=== PATIENT | male | born 1990 | race Caucasian/White ===

== ENCOUNTER 2018-04-30 18:45 | Inpatient (IN) | payer OTHER ==
[2018-04-30] MEDS ORDERED: Nicotine Inhaler* 10 MG AMP INH PRN (19:41)
[2018-04-30] MEDS ORDERED: Mouth Piece, Nicotine* 1 EACH CARTRIDGE INH PRN (20:05)
--- NOTE | 2018-04-30 20:31 | ED ---
Psychiatric Complaint - HPI Summary HPI Summary: This patient is a 27 year old M presenting to [facility] accompanied by a his mother and a male with a chief complaint of worsening paranoia and anxiety since 2 days ago. The patient was difficult to bring into his room in the ED and is resistant to any testing. Patient reports lack of motivation, fear of his own thoughts, and feelings of being ripped apart to . Patient denies SI, HI, hearing voices, or abd pain. The patients mother states that he doesnt follow conversation and often zones out. She also believes something auditory may be happening. She does not believe it is safe for him to go home, where he lives alone. 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 He was weaned off of this medication after 3 months. At the time, he believed he was a robot. Currently, he has asked his parents several times to prove that they are human and not a simulation. The patients mother says that he is usually very high functioning and this behavior is not normal. The patient will not say if he takes drugs. PMHX Crohn s. SHX unemployed, EtOH use, lives alone. RX Remicade. 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 - Risk Factor(s) Completed Suicide Risk Factors: Male, White Belarusian, Living Alone - Allergies/Home Medications Allergies/Adverse Reactions: Allergies Allergy/AdvReac Type Severity Reaction Status Date / Time pollen extracts Allergy Congestion Verified 05/01/18 04:02 shrimp Allergy Hives Verified 05/01/18 15:45 Home Medications: Home Medications Clotrimazole/Betamethasone* [Lotrisone Cream*] 1 dose .SEE ORDER DAILY 04/30/18 [History Confirmed 04/30/18] PMH/Surg Hx/FS Hx/Imm Hx GI History: Reports: Hx Crohn's Disease Musculoskeletal History: Denies: Hx Rheumatoid Arthritis, Hx Osteoporosis Infectious Disease History: No Infectious Disease History: Denies: Traveled Outside the [place] in Last 30 Days - Family History Known Family History: Positive: Other - crohns - Social History Occupation: Unemployed Lives: Alone Alcohol Use: Occasionally Alcohol Amount: unknown Review of Systems Negative: Abdominal Pain Neurological: Other - confusion Psychological: Other - paranoid, fearful, lack of motivation Positive: Anxious. Negative: Other - SI/HI, hearing voices All Other Systems Reviewed And Are Negative: Yes Physical Exam - Summary Physical Exam Summary: Appearance: Well appearing, no pain distress. Anxious. Skin: warm, dry, reflects adequate perfusion Head/face: normal Eyes: EOMI, GONZALO ENT: normal Neck: supple, non-tender Respiratory: CTA, breath sounds present Cardiovascular: RRR, pulses symmetrical Abdomen: non-tender, soft Musculoskeletal: normal, strength/ROM intact Neuro: normal, sensory motor intact, A&Ox3 GCS: 15 Triage Information Reviewed: Yes Vital Signs On Initial Exam: Initial Vitals Temp Pulse Resp BP Pulse Ox 99.4 F 70 18 0/0 99 04/30/18 18:51 04/30/18 18:51 04/30/18 18:51 04/30/18 18:51 04/30/18 18:51 Vital Signs Reviewed: Yes Diagnostics - Vital Signs Vital Signs Temp Pulse Resp BP Pulse Ox 04/30/18 18:51 99.4 F 70 18 0/0 99 - Laboratory Result Diagrams: 05/04/18 10:06 05/04/18 10:06 Lab Statement: Any lab studies that have been ordered have been reviewed, and results considered in the medical decision making process. Course/Dx - Course Course Of Treatment: This patient is a 27 year old M presenting to [facility] accompanied by a his mother and a male with a chief complaint of worsening paranoia and anxiety since 2 days ago. The patient was difficult to bring into his room in the ED and is resistant to any testing. Patient reports lack of motivation, fear of his own thoughts, and feelings of being ripped apart to . Patient denies SI, HI, hearing voices, or abd pain. In the ED course the patient was given Nicotine Inhaler. The patient will be signed out by Dr. Cowan to Dr. Darden, awaiting lab results, CT brain results, and mental health evaluation. - Differential Dx/Clinical Impression Differential Diagnosis/HQI/PQRI: Positive: Acute Psychosis, Anxiety, Depression Provider Diagnosis: Psychosis Discharge - Sign-Out/Discharge Documenting (check all that apply): Sign-Out Patient Signing out patient TO: Ted Darden Patient Received Moderate/Deep Sedation with Procedure: Yes - Discharge Plan Condition: Good Disposition: PSYCHIATRIC FACILITY-[facility] [place] - Billing Disposition and Condition Condition: GOOD Disposition: Psychiatric Facility [facility] - Attestation Statements Document Initiated by Scribe: Yes Documenting Scribe: Pedro Will Provider For Whom Scribe is Documenting (Include Credential): Oren Cowan MD Scribe Attestation: Pedro Granda, scribed for Oren Cowan MD on 05/06/18 at 0208. Scribe Documentation Reviewed: Yes Provider Attestation: The documentation as recorded by the Pedro hsieh accurately reflects the service I personally performed and the decisions made by Oren gayle MD Status of Scribe Document: Viewed
[2018-04-30 21:53] LABS: ABS Basophils 0 10^3/ul (0-0.2); ABS Eosinophils 0.1 10^3/ul (0-0.6); ABS Monocytes 0.7 10^3/ul (0-0.8); ABS Nucleated RBC 0 10^3/ul; Eosinophil % 0.9 %; Hematocrit 44 % (42-52); Hemoglobin 14.9 g/dl (14.0-18.0); Lymphocyte % 14.4 %; Mean Corpuscular HGB Conc 34 g/dl (31-36); Mean Corpuscular Hemoglobin 31 pg (27-31); Mean Corpuscular Volume 91 fL (80-94); Mean Platelet Volume 6.6 fL (7.4-10.4); Nucleated Red Blood Cells % 0; Platelet Count 285 10^3/ul (150-450); Red Blood Count 4.82 10^6/ul (4.00-5.40); Red Cell Distribution Width 12 % (10.5-15); White Blood Count 6.7 10^3/ul (3.5-10.8)
--- NOTE | 2018-04-30 21:55 | ED ---
Progress - Progress Note Progress Note: Receiving sign out from Dr. Cowan, pending brain CT, labs, and MHE. Brain CT was cancelled because the pt is too agitated and declines. 0103 - worker states that he spoke to Dr. Gonzalez and relays that Dr. Gonzalez would like a Brain CT, urine tox screen before MHE. MH worker will discuss necessity of Brain CT prior to MHE. 0109 - worker states that patient is agreeable with Brain CT, urine obtained. BRAIN IMPRESSION: Normal noncontrast head CT. THIS REPORT WAS REVIEWED BY ED PHYSICIAN. 0218 - Dr. Gonzalez reviewed the patient's case, patient is admitted to [facility] with Dx of psychosis. Re-Evaluation - Re-Evaluation First Eval Re-Evaluation Time: 23:00 Change: Unchanged Comment: Pt is medically cleared for a MHE. Second Eval Re-Evaluation Time: 01:03 Change: Unchanged Comment: 0103 - worker states that he spoke to Dr. Gonzalez and relays that Dr. Gonzalez would like a Brain CT, urine tox screen before MHE. MH worker will discuss necessity of Brain CT prior to MHE. Third Eval Re-Evaluation Time: 01:09 Change: Unchanged Comment: 0109 - worker states that patient is agreeable with Brain CT, urine obtained. Course/Dx - Course Course Of Treatment: Nurse's notes reviewed. I assumed care from the outgoing ER physician on this case. Patient was calm and cooperative on my initial evaluation after getting sedation earlier. Head CT was performed and was negative. Mental health evaluation was performed and following this the psychiatrist wish to have the patient admitted. He was done so on involuntary status for acute psychosis. - Diagnoses Provider Diagnoses: Psychosis - Provider Notifications Discussed Care Of Patient With: Avila Gonzalez Time Discussed With Above Provider: 02:18 Instructed by Provider To: Other - 0218 - Dr. Gonzalez reviewed the patient's case , patient is admitted to [facility] with Dx of psychosis. Discharge - Sign-Out/Discharge Documenting (check all that apply): Patient Departure - admit, Receiving Sign- Out Receiving patient FROM: Oren Cowan - Discharge Plan Condition: Good Disposition: [place]CHIATRIC FACILITY[place] [place] - Billing Disposition and Condition Condition: GOOD Disposition: Psychiatric Facility [facility] [place] - Attestation Statements Document Initiated by Scribe: Yes Documenting Scribe: Aurelia Paul Provider For Whom Scribe is Documenting (Include Credential): Ted Darden MD Scribe Attestation: Aurelia Granda, scribed for Ted Darden MD on 05/01/18 at 0518. Scribe Documentation Reviewed: Yes Provider Attestation: The documentation as recorded by the scribe, Aurelia Paul accurately reflects the service I personally performed and the decisions made by , Ted Darden MD Status of Scribe Document: Viewed
[2018-04-30 22:16] LABS: ALT 31 U/L (7-52); AST 29 U/L (13-39); Albumin/Globulin Ratio 1.9 (1-3); Alkaline Phosphatase 69 U/L (34-104); Anion Gap 6 mmol/L (2-11); BUN/Creatinine Ratio 13.1 (8-20); Blood Urea Nitrogen 14 mg/dL (6-24); CO2 Carbon Dioxide 26 mmol/L (22-32); Calcium 9.9 mg/dL (8.6-10.3); Chloride 105 mmol/L (101-111); EGFR African American 101.9 (>60); EGFR Non-African American 84.2 (>60); Globulin 2.7 g/dL (2-4); Glucose 126 mg/dL (70-100); Potassium 3.7 mmol/L (3.5-5.0); Sodium 137 mmol/L (135-145); Total Protein 7.7 g/dL (6.4-8.9)
[2018-04-30 22:34] LABS: Acetaminophen < 15 mcg/mL; Alcohol < 10 mg/dL (<10); Salicylate < 2.50 mg/dL (<30)
[2018-04-30 22:48] LABS: TSH (Thyroid Stimulating Horm) 1.62 mcIU/mL (0.34-5.60)
[2018-05-01] MEDS ORDERED: LORazepam TAB(*) 1 MG PO ONE ×2 (01:03→16:00)
[2018-05-01 01:23] LABS: Urine Appearance Clear; Urine Bilirubin Negative (Negative); Urine Blood Negative (Negative); Urine Color Yellow; Urine Glucose Negative (Negative); Urine Ketones 1+ (Negative); Urine Nitrite Negative (Negative); Urine Protein Negative (Negative); Urine Urobilinogen Negative (Negative)
[2018-05-01 01:36] LABS: Barbiturates Urine Screen None Detected (None Detect); Benzodiazepine Urine Screen None Detected (None Detect); Urine Cannabinoids Screen None Detected (None Detect)
[2018-05-01] MEDS ORDERED: Al Hydrox/Mg Hydrox/Simet LIQ* 30 ML UDC PO PRN (04:25)
[2018-05-01] MEDS ORDERED: OLANzapine TAB*ODT* 10 MG TAB PO ONE (07:43)
[2018-05-01] MEDS ORDERED: Olanzapine INJ(NF) 10 MG VIAL IM ONE (07:45)
[2018-05-01] MEDS: Vitamin THERAPEUTIC TAB PO SCH (13:05)
[2018-05-01] MEDS ORDERED: OLANzapine TAB*ODT* 5 MG ONE (13:23)
[2018-05-01] MEDS ORDERED: OLANzapine TAB*ODT* 5 MG PO SCH (13:30)
--- NOTE | 2018-05-01 15:17 | PN ---
Hospitalist Progress Note Date of Service: 05/01/18 please see restraint note
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
--- NOTE | 2018-05-01 18:30 | HP ---
HISTORY AND PHYSICAL: DATE OF ADMISSION: 05/01/18 IDENTIFYING DATA: Ishaan is an unemployed, single male with lifetime history of 1 prior psychiatric hospitalization in 2016 at [facility] in [place] who was brought into the emergency department by his parents because of abrupt change in his mental status during last few weeks' time. CHIEF COMPLAINT: "I feel like a black hole and people are being sucked into it. " HISTORY OF PRESENT ILLNESS: This young man who has been doing fine up until few weeks ago without any medication started to experience some psychosis manifested as seeing people around him as abnormal, even seeing his mother as a robot. Last evening, he presented to the emergency room complaining of few weeks of having strange thoughts such as people as beams of light from the stars and then himself being as black hole and those people are being sucked into that and he saw people at the bottom of that black hole as well, and his story of strange thoughts continues as the bizarre delusion of seeing his mother as a robot and not a real one. He also has been experiencing some spiritual things such as seeing the light from the heavens. He denies hearing any voices or well-formed visual hallucinations, however, believes that people around him including patients on the unit are weird and abnormal. He thinks their brains are computerized and those computers in their brains are bugged. He is also stressed with the current political environment in the country, where he believes the politicians are all corrupt. There is some reporting by the staff on the unit as well as his mother's detailed history that he was misunderstood during his college years as being a Nazi. Please read detailed history written by his mother for more information. With regards to his stress, there are plenty; few of them are as follows: His isolation from the community because of his extreme political views which are considered to be white supremacist views, lack of other support systems, unemployment, financial problem, and so on. PAST PSYCHIATRIC HISTORY: According to collaterals, Ishaan was hospitalized at [facility] in [place] for 10 days almost under the similar circumstances. He was stabilized on 5 mg of Zyprexa as well as 40 mg of Prozac , which he successfully discontinued with the help of his community providers. He did fairly well for some time and then started experiencing bizarre thoughts and was isolating himself. According to his mother's history, he was weaned off Zyprexa within few months of his discharge from [facility]; however, he stayed on Prozac until the summer of 2016 and was weaned off that as well. SUBSTANCE ABUSE HISTORY: Unremarkable. PAST MEDICAL HISTORY: Remarkable for a diagnosis of Crohn disease for which he takes Remicade IV every 8 weeks. MEDICATIONS: He currently takes some supplements which include: 1. Vitamin D. 2. Magnesium gluconate. 3. B12. 4. Oceans 3. 5. Alger-3s. 6. Curcumin 500 mg 1 tablet. 7. B complex. 8. Zinc gluconate. Please refer to his mother's history for his medical history as well. FAMILY PSYCHIATRIC HISTORY: Remarkable for paternal mother and his own mother suffering from anxiety. FAMILY MEDICAL HISTORY: Remarkable for hypertension in maternal grandmother and mother; multiple myeloma, paternal grandfather who is ; and hypercholesterolemia in his father. PERSONAL AND SOCIAL HISTORY: Ishaan has obtained a bachelor's in chemistry and pursued into his graduate education in chemistry in [employer]; however, because of his strong political views and being branded as a Nazi there , he left without finishing his master's. 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 He was discharged from that job for unknown reason, possibly because of disagreement with a cardiology clinical consultant there. He is currently unemployed and is being interviewed at [employer] for job as a industrial chemistry teacher. He does not have any significant relationship or any children. PHYSICAL EXAMINATION Physical exam was offered and he politely declined; however, he does not appear to be in any acute physical distress. DIAGNOSTIC STUDIES/LAB DATA: Review of records from emergency department were all unremarkable including labs, which included CBC with differential, comprehensive metabolic profile, urinalysis, and urine drug screen, all were within normal limits. A CT scan done in the emergency room to rule out any neurological condition was also negative. However, his mother provided some research article indicative of some kind of demyelination or neuroinflammation related to Remicade, please review it if you have time. MENTAL STATUS EXAMINATION: Ishaan is average height, thin-framed, healthy- appearing young male, appropriately dressed, poorly groomed with fair personal hygiene. He has facial hair which is trimmed. Otherwise, normal appearing young man of his stated age. He is alert and oriented to time, place, and person, makes good eye contact. Speech is normal in all spheres. He is a little suspicious and has intense stare. Describes his mood as terrible because he is locked up. Denies experiencing any hallucinations or delusions, although history is suggestive of bizarre and paranoid delusions. He denies any suicidal or homicidal ideations. His intelligence appears to be average as evidenced by his vocabulary, fund of knowledge, educational background, and so on. Memory functions are intact in all spheres. Insight and judgment impaired. SUMMARY: This young man with 1 prior psychiatric hospitalization for acute onset psychosis and depression who weaned himself off the medications on which he was stabilized approximately couple of years ago started experiencing acute psychosis with bizarre delusions and extraterrestrial experiences. DIAGNOSTIC IMPRESSION: MENTAL HEALTH DIAGNOSIS: Schizophrenia, unspecified type, rule out disorganized schizophrenia, rule out schizoaffective disorder. PHYSICAL HEALTH DIAGNOSIS: Crohn disease. TREATMENT RECOMMENDATIONS: Ishaan will remain hospitalized on [facility] for his safety , diagnostic clarification as well as stabilization of acute psychosis. His code status will remain full. Supportive milieu, individual, and group therapy will be initiated. I have started him on Zyprexa 5 mg once a day which can be titrated up as he tolerates and I will defer that to his assigned psychiatrist on the unit, and again his treatment needs to be coordinated with his mother who is a retired physician and has written a very good medical and mental health history on him. Please refer to that piece of document. Ishaan has his own place to go back to and has a very supportive, loving, and caring parents. He has good educational background, has been employed, and has a potential to be gainfully employed in the community if he maintains his stability by being compliant with his appointments and treatments. [id number]/CPS #: [id number] MIKE
[2018-05-02] MEDS ORDERED: OLANzapine TAB*ODT* 10 MG TAB PO SCH ×2 (04:41→09:00)
[2018-05-02] MEDS ORDERED: Olanzapine INJ(NF) 10 MG VIAL IM ONE (08:00)
[2018-05-02] MEDS ORDERED: LORazepam INJ* 2 MG/ML 1 ML VIAL ONE (08:14)
[2018-05-02] MEDS ORDERED: chlorproMAZINE INJ* 25 MG/ML 2 ML (50 MG) ONE ×2 (08:17→10:21)
--- NOTE | 2018-05-02 08:47 | PROCNOTE ---
- Assessment for Patient Restraint Evaluation of the Patient's Immediate Situation: Analytical Lab Technician was notified of chemical restraints at 805am and manual hold and was seen and evaluated within a half hour of being notified. Patient was seen by this speech writer at 830am for an evaluation. He was given Zyprexa 10mg IM and Thorazine 25mg IM. Patient was offered oral zyprexa before conditions prompted emergency administration of intramuscular zyprexa 10mg. The patient continued to be combative toward staff which included biting and kicking requiring the use of security to maintain safety of others and the patient. Thorazine 25mg IM was given and the patient was able to calm down. Patient's Reaction to Intervention: The patient is not in any acute distress and is currently stable sitting on his bed. The patient is breathing freely without restriction. The patient displayed no signs of injury. Patient's Medication and Behavioral Condition: Zyprexa 10mg IM and Thorazine 25mg IM was given. The patient received intramuscular medication without complication. Evaluate Need for Continued Restraint: Terminate
[2018-05-02] MEDS ORDERED: chlorproMAZINE INJ* 25 MG/ML 2 ML (50 MG) IM ONE ×2 (09:00→10:20)
[2018-05-02] MEDS ORDERED: LORazepam INJ* 2 MG/ML 1 ML VIAL IM ONE (09:00)
[2018-05-02] MEDS: Vitamin THERAPEUTIC TAB PO SCH (09:27)
--- NOTE | 2018-05-02 11:52 | PROCNOTE ---
- Assessment for Patient Restraint Evaluation of the Patient's Immediate Situation: Paragliding Instructor was notified of chemical restraints and manual hold at 1030am and was seen and evaluated within a half hour of being notified. Patient was seen by this television script writer at 1045am for an evaluation. He was given Thorazine 50mg IM. Patient was offered oral before conditions prompted emergency administration of intramuscular route. The patient was punching the door several times. Patient's Reaction to Intervention: The patient is not in any acute distress and is currently stable sitting on his bed. The patient is breathing freely without restriction. The patient hand was injured during punching the door and he is holding his hands in his pocket and refusing to allow television script writer evaluate for injury he is refusing a x-ray of the hand. Patient's Medication and Behavioral Condition: Thorazine 50mg IM was given. The patient received intramuscular medication without complication or side effects. Evaluate Need for Continued Restraint: Terminate
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
[2018-05-02] MEDS: OLANzapine TAB*ODT* 5 MG PO SCH (21:29)
[2018-05-03] MEDS ORDERED: chlorproMAZINE INJ* 25 MG/ML 2 ML (50 MG) IM ONE (07:19)
[2018-05-03] MEDS: Vitamin THERAPEUTIC TAB PO SCH (07:59)
[2018-05-03] MEDS: OLANzapine TAB*ODT* 5 MG PO SCH ×2 (07:59→20:10)
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
[2018-05-03] MEDS: Acetaminophen TAB* 325 MG PO PRN (08:42)
--- NOTE | 2018-05-03 14:55 | PN ---
Subjective - Subjective Date of Service: 05/03/18 Service Type: [id number] Hosp care 35 min high complexity Subjective: Patient received emergency IM medication this morning due to aggression towards staff. Patient has slept intermittently overnight and this morning. Patient lying down and spoke with advertising writer. He spoke of grandiose topics of needing to save the universe and clarifying reality. He inquires about the end of the world. Patient's mother, Maddy Tellez, visiting during visiting hours. He declined to allow advertising writer to meet with the both of them. After brief interaction, Maddy leaves the room and reports he asked for a hug. She states understanding that patient did not sign an FAHEEM but that I may listen to her. She reports that Ishaan is at baseline kind and intelligent. she reports he has been inundated with political commentary and extreme conservative views. She states he has been more isolative and apathetic. During conversation, he pauses often ( latencies) and make bizarre eye movements. She and his father paid for him to take a hiking/backpacking trip to [place] in February, after which he "good." She goes on to describe his experiences of being bullied as a child and ostracized after falsely accused of being a white supremacist. Objective - Appearance Appearance: Thin Framed Dysmorphic Features: Yes Hygiene: Dirty Grooming: Disheveled - Behavior Psychomotor Activities: Normal Exhibits Abnormal Movement: No - Attitude and Relatedness Attitude and Relatedness: Psychotically Related Eye Contact: Poor - Speech Quality: Pressured Latencies: Long Quantity: Terse - Mood Patient's Decription of Mood: "i don't know" - Affect Observed Affect: Unvariable Affect Consistent with: Dysphoria - Thought Process Patient's Thought Process: Disorganized, Filght of Ideas, Over Inclusive Thought Content: Yes Paranoid Ideation, No Passive Wish, No Suicidal Planning, No Homicidal Ideation - Sensorium Experiencing Hallucinations: No, Sensorium is Clear - denies Type of Hallucinations: Visual: No, Auditory: No, Command: No - Level of Consciousness Level of Consciousness: Alert Orientation: Yes Intact, Yes Orientated to Time, Yes Orientated to Place, Yes Orientated to Person - Impulse Control Impulse Control: Impaired - Insight and Judgement Insight and Judgement: Impaired - Group Participation Particating in Group Activities: No - Medication Management Medication Management Adherence: No Assessment - Assessment Merits Inpatient Hospitalization: For Immediate Safety, For Stabilization Inpatient DSM-V Dx: F29 - unspecified psychosis Clinical Impression: 27yo wm with one prior psychiatric hospitalization who presents to ED with acute onset psychosis including aggression and destructive behavior. He merits hospitalization for immediate safety and stabilization. Plan - Plan Treatment Plan: Name: ISHAAN PARKINSON Birthdate: 1990 [id number] continue acute intensive psychiatric treatment. increase to constant observation when out of room. start olanzapine 5mg BID. utilize thorazine, lorazepam prn as ordered for agitation. obtain brain MRI when patient able to participate. Continued Medication Management: Different Medication Medications: Current Medications Acetaminophen (Tylenol Tab*) 650 mg PO Q4H PRN PRN Reason: PAIN or TEMP > 101 F Last Admin: 05/03/18 08:42 Dose: 650 mg Al Hydrox/Mg Hydrox/Simethicone (Maalox Plus*) 30 ml PO Q4H PRN PRN Reason: INDIGESTION Chlorpromazine HCl (Thorazine Tab*) 50 mg PO Q4H PRN PRN Reason: AGITATION Device (Nicotine Mouth Piece*) 1 each INH .USE W/ CARTRIDGE PRN PRN Reason: WITHDRAWAL - NICOTINE Lorazepam (Ativan Tab(*)) 2 mg PO Q4H PRN PRN Reason: agitation/anxiety Multivitamins (Theragran Tab*) 1 tab PO DAILY [facility] Last Admin: 05/03/18 07:59 Dose: Not Given Nicotine (Nicotine Inhaler*) 10 mg INH Q2H PRN PRN Reason: CRAVING Olanzapine (Zyprexa * Tab Odt) 5 mg PO BID [facility] Last Admin: 05/03/18 07:59 Dose: Not Given - Discharge Plan Discharge Plan: Inpatient Hospitalization
[2018-05-03] MEDS ORDERED: Haloperidol INJ IV/IM* 5 MG/ML AMP ONE (17:32)
[2018-05-03] MEDS ORDERED: LORazepam INJ* 2 MG/ML 1 ML VIAL ONE (17:32)
[2018-05-03] MEDS ORDERED: Haloperidol INJ IV/IM* 5 MG/ML AMP IM PRN (19:53)
[2018-05-03] MEDS ORDERED: LORazepam INJ* 2 MG/ML 1 ML VIAL IM PRN (19:55)
--- NOTE | 2018-05-03 23:07 | CONS ---
CONSULTATION REPORT: DATE OF CONSULT: 05/03/18 PROVIDER: Jena Engel NP. ATTENDING PHYSICIAN: Dr. Hunter. CONSULTING PHYSICIAN: Levi Mehta MD (dictated by Jena Engel NP). REASON FOR CONSULT: Abdominal pain. HISTORY OF PRESENT ILLNESS: Mr. Jones is a 27-year-old male who initially presented to [facility] emergency room with a complaint of feeling like he was in a black hole and being sucked into it. The patient was doing fine up until a few weeks ago, without any medications, and started experiencing some psychosis that manifested as seeing people around him as abnormal, even seeing his mother as a robot. On the evening of admission he presented to the emergency room complaining of a few weeks of having strange thoughts such as people beaming lights from the stars and then himself as being in a black hole. Strange thoughts continued as the bizarre delusions of seeing his mother as a robot and not a real one. He has also been experiencing some spiritual things, such as seeing lights from [place]. So, he was seen and evaluated by Mental Health and recommended that he be hospitalized for his safety and diagnostic clarification , as well as stabilization of his acute psychosis. The patient has had multiple attempts to escape the unit. He did pull a fire alarm a few days ago and has had several manual restraints and chemical restraining as well, due to his behavior. We were contacted today to consult due to abdominal pain. The patient reports that he has abdominal pain and that his spleen hurts. I went to examine the patient at the bedside. The patient refused a physical exam. He did report that he has had abdominal pain x2 weeks and that he has a history of Crohn's disease. He denies any diarrhea or blood in the stool. He denies any vomiting. He does report some nausea. He reports that the pain is on the left side. He denies any fever. He denies any cough, hemoptysis, or shortness of breath. He denies any chest pain. He denies any gross hematuria, dysuria, focal weakness or sensory loss. He denies any dysphagia, arthralgias, myalgias, rashes, lesions or open sores. Due to the patient becoming mildly anxious, all staff left the room for safety. PAST MEDICAL HISTORY: Obtained from his prior records: 1. Crohn's disease, for which he takes Remicade every 8 weeks. 2. He does have a past medical history of psychosis. PAST SURGICAL HISTORY: Unknown. HOME MEDICATIONS: 1. Vitamin D. 2. Magnesium gluconate. 3. Vitamin B12 4. Oceans 3/[place]-3. 5. B complex and zinc gluconate. ALLERGIES: POLLEN EXTRACTS and SHRIMP. FAMILY HISTORY: Maternal grandmother with a history of hypertension. Father with a history of high cholesterol. No reported history of diabetes. Grandmother and grandfather with multiple myeloma. 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 He has worked at [employer] for approximately a year and lost that job in July of 2017 and then started working at [employer] as a chemist helper as well. He was discharge from that job recently for unknown reasons. 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 REVIEW OF SYSTEMS: As per HPI. PHYSICAL EXAMINATION: Unobtainable as the patient would not allow a physical exam to be completed and staff urging we leave the room due to the patient's mental state and safety. DIAGNOSTIC STUDIES/LAB DATA: CBC was within normal limits. BMP was within normal limits. Glucose was 126, urine was within normal limits. He did have 1 + ketones and urine tox was within normal limits, with no abnormalities. IMPRESSION AND PLAN: Mr. Jones is a 27-year-old male who initially presented to the emergency room on 03/30/18 for evaluation of psychosis. The patient was subsequently admitted to the [facility]. Today, he complained of some abdominal pain and Hospital Medicine was asked to see the patient in consultation. Our recommendations are as follows: 1. Psychosis: Management per Psychiatry. 2. Abdominal pain: Due to the patient not allowing a physical exam to be completed, I would recommend that we get a CT of the abdomen and pelvis as the patient does have a history of Crohn's disease. I will get a repeat CBC and BMP. Further recommendation will be based on lab work and imaging and labs. 3. DVT prophylaxis: Per orthopedics. 4. FEN: He can continue his regular diet. 5. Code status: He is a full code. TIME SPENT: Time spent on this consultation was 45 minutes, at the bedside, reviewing the events leading thus far to his hospitalization and reviewing my plan of care. I have discussed with my attending, Dr. Levi Mehta, he is in agreement with my plan. Addendum: Patient is refusing blood work and imaging studies. Patient also continues to refuse physical exam. If the patient presents with the need for further evaluation of his abdominal pain please don't hesitate to contact hospital medicine. At this time we will sign off on his case as the patient continues to refuse examination and testing. JENA ENGEL, PROGRAM CHECKER [id number]/[facility] #: [id number] MTDJustine
[2018-05-04] MEDS: chlorproMAZINE TAB* 50 MG PO PRN (08:34)
[2018-05-04] MEDS: OLANzapine TAB*ODT* 5 MG PO SCH ×2 (08:34→20:34)
[2018-05-04] MEDS: Vitamin THERAPEUTIC TAB PO SCH (08:34)
--- NOTE | 2018-05-04 10:14 | PN ---
Subjective - Subjective Date of Service: 05/04/18 Service Type: [id number] Hosp care 35 min high complexity Subjective: Patient is lying in bed, easily roused by door opening. He answers brief questions and cooperated with VS being taken and blood draw. He accepted am olanzapine dose. He is noted to have dried blood on left nare and reports history of occasional epistaxis. He endorses vague fear and asks that I make sure everyone loves him. He refuses physical exam, noted to have audible active BS. He refuses to obtain radiology exams. Patient has been calm and in behavioral control since last evening. 05/04/18 05/04/18 05/04/18 10:06 10:06 10:06 WBC 9.2 RBC 4.51 Hgb 14.2 Hct 40 L MCV 90 MCH 31 MCHC 35 RDW 12 Plt Count 227 MPV 6.6 L Neut % (Auto) 73.6 Lymph % (Auto) 10.1 [place] % (Auto) 15.4 Eos % (Auto) 0.6 Baso % (Auto) 0.3 Absolute Neuts (auto) 6.7 Absolute Lymphs (auto) 0.9 L Absolute Monos (auto) 1.4 H Absolute Eos (auto) 0.1 Absolute Basos (auto) 0 Absolute Nucleated RBC 0 Nucleated RBC % 0.1 Sodium 135 Potassium 4.0 Chloride 99 L Carbon Dioxide 26 Anion Gap 10 BUN 12 Creatinine 0.96 Est GFR ( Amer) 115.5 Est GFR (Non-Af Amer) 95.4 BUN/Creatinine Ratio 12.5 Glucose 97 Hemoglobin A1c 4.8 Calcium 9.4 Triglycerides 53 Cholesterol 107 LDL Cholesterol 43 HDL Cholesterol 53.6 Objective - Appearance Appearance: Thin Framed Dysmorphic Features: Yes Hygiene: Mal-odorous Grooming: Disheveled - Behavior Psychomotor Activities: Normal Exhibits Abnormal Movement: No - Attitude and Relatedness Attitude and Relatedness: Psychotically Related Eye Contact: Poor - Speech Quality: Unpressured Latencies: Short Quantity: Terse - Mood Patient's Decription of Mood: "afraid" - Affect Observed Affect: Unvariable Affect Consistent with: Dysphoria - Thought Process Patient's Thought Process: Tangential, Impoverished Thought Content: Yes Paranoid Ideation, No Passive Wish, No Suicidal Planning, No Homicidal Ideation - Sensorium Experiencing Hallucinations: No, Sensorium is Clear - denies Type of Hallucinations: Visual: No, Auditory: No, Command: No - Level of Consciousness Level of Consciousness: Alert Orientation: Yes Intact, Yes Orientated to Time, Yes Orientated to Place, Yes Orientated to Person - Impulse Control Impulse Control: Poor - Insight and Judgement Insight and Judgement: Impaired - Group Participation Particating in Group Activities: No - Medication Management Medication Management Adherence: Yes Assessment - Assessment Merits Inpatient Hospitalization: For Immediate Safety, For Stabilization Inpatient DSM-V Dx: F29 - unspecified psychosis Clinical Impression: 27yo wm with one prior psychiatric hospitalization who presents to ED with acute onset psychosis including aggression and destructive behavior. He merits hospitalization for immediate safety and stabilization. Plan - Plan Treatment Plan: Name: MARLO PARKINSON Birthdate: 1990 [id number] continue acute intensive psychiatric treatment. decrease to q15min observation start olanzapine 5mg BID. utilize thorazine, lorazepam prn as ordered for agitation. obtain brain MRI and abdomen CT w/contrast when patient agreeable. Continued Medication Management: Start Medication Medications: Current Medications Acetaminophen (Tylenol Tab*) 650 mg PO Q4H PRN PRN Reason: PAIN or TEMP > 101 F Last Admin: 05/03/18 08:42 Dose: 650 mg Al Hydrox/Mg Hydrox/Simethicone (Maalox Plus*) 30 ml PO Q4H PRN PRN Reason: INDIGESTION Chlorpromazine HCl (Thorazine Tab*) 50 mg PO Q4H PRN PRN Reason: AGITATION Last Admin: 05/04/18 08:34 Dose: 50 mg Device (Nicotine Mouth Piece*) 1 each INH .USE W/ CARTRIDGE PRN PRN Reason: WITHDRAWAL - NICOTINE Haloperidol Lactate (Haldol Inj Iv/Im*) 5 mg IM ONCE PRN PRN Reason: AGITATION Lorazepam (Ativan Tab(*)) 2 mg PO Q4H PRN PRN Reason: agitation/anxiety Lorazepam (Ativan Inj*) 2 mg IM ONCE PRN PRN Reason: AGITATION Multivitamins (Theragran Tab*) 1 tab PO DAILY [facility] Last Admin: 05/04/18 08:34 Dose: 1 tab Nicotine (Nicotine Inhaler*) 10 mg INH Q2H PRN PRN Reason: CRAVING Olanzapine (Zyprexa * Tab Odt) 5 mg PO BID [facility] Last Admin: 05/04/18 08:34 Dose: 5 mg - Discharge Plan Discharge Plan: Inpatient Hospitalization
[2018-05-04 10:30] LABS: ABS Basophils 0 10^3/ul (0-0.2); ABS Eosinophils 0.1 10^3/ul (0-0.6); ABS Lymphocytes 0.9 10^3/ul (1.0-4.8); ABS Monocytes 1.4 10^3/ul (0-0.8); ABS Neutrophils 6.7 10^3/ul (1.5-7.7); ABS Nucleated RBC 0 10^3/ul; Eosinophil % 0.6 %; Hematocrit 40 % (42-52); Hemoglobin 14.2 g/dl (14.0-18.0); Lymphocyte % 10.1 %; Mean Corpuscular HGB Conc 35 g/dl (31-36); Mean Corpuscular Hemoglobin 31 pg (27-31); Mean Corpuscular Volume 90 fL (80-94); Mean Platelet Volume 6.6 fL (7.4-10.4); Nucleated Red Blood Cells % 0.1; Platelet Count 227 10^3/ul (150-450); Red Blood Count 4.51 10^6/ul (4.00-5.40); Red Cell Distribution Width 12 % (10.5-15); White Blood Count 9.2 10^3/ul (3.5-10.8)
[2018-05-04 10:47] LABS: BUN/Creatinine Ratio 12.5 (8-20); Calcium 9.4 mg/dL (8.6-10.3); EGFR African American 115.5 (>60); EGFR Non-African American 95.4 (>60); HDL Cholesterol 53.6 mg/dL
[2018-05-04] MEDS ORDERED: Ibuprofen TAB* 600 MG PO PRN (11:18)
[2018-05-05] MEDS: OLANzapine TAB*ODT* 5 MG PO SCH ×2 (10:06→22:06)
[2018-05-05] MEDS: Vitamin THERAPEUTIC TAB PO SCH ×2 (10:06→11:20)
--- NOTE | 2018-05-05 10:53 | PN ---
Subjective - Subjective Date of Service: 05/05/18 Service Type: [id number] Hosp care 25 min moderate complexity Subjective: Patient lying in bed, intermittently sleeping. Consulting Practice Director attempts to interview patient multiple times. He responds to questions with brief but polite answers. His mother, Maddy, visited and he declined to allow publicity writer to join them. She states understanding of not having an FAHEEM and is receptive to general answers about bipolar disorder. He has been accepting food/drink, oral medications and has been in behavioral control. Objective - Appearance Appearance: Thin Framed Dysmorphic Features: Yes Hygiene: Mal-odorous Grooming: Disheveled - Behavior Psychomotor Activities: Abnormal-Decreased - psychomotor retardation Exhibits Abnormal Movement: Yes - Attitude and Relatedness Attitude and Relatedness: Withdrawn Eye Contact: Poor - Speech Quality: Unpressured Latencies: Long Quantity: Terse - Mood Patient's Decription of Mood: "Okay" - Affect Observed Affect: Depressed Affect Consistent with: Dysphoria - Thought Process Patient's Thought Process: Impoverished Thought Content: Yes Paranoid Ideation, No Passive Wish, No Suicidal Planning, No Homicidal Ideation - Sensorium Experiencing Hallucinations: No, Sensorium is Clear - denies Type of Hallucinations: Visual: No, Auditory: No, Command: No - Level of Consciousness Level of Consciousness: Lethargic Orientation: Yes Intact, Yes Orientated to Time, Yes Orientated to Place, Yes Orientated to Person - Impulse Control Impulse Control: Poor - Insight and Judgement Insight and Judgement: Impaired - Group Participation Particating in Group Activities: No - Medication Management Medication Management Adherence: Yes Assessment - Assessment Merits Inpatient Hospitalization: For Immediate Safety, For Stabilization Inpatient DSM-V Dx: F31.62 - bipolar I d/o, current episode mixed Clinical Impression: 27yo wm with one prior psychiatric hospitalization who presents to ED with acute onset psychosis including aggression and destructive behavior. He merits hospitalization for immediate safety and stabilization. Plan - Plan Treatment Plan: Name: MARLO PARKINSON Birthdate: 1990 [id number] continue acute intensive psychiatric treatment. continue q15min observation continue current medications. consider paliperidone per patient consent. utilize thorazine, lorazepam prn as ordered for agitation. obtain brain MRI and abdomen CT w/contrast when patient agreeable. Continued Medication Management: Start Medication Medications: Current Medications Acetaminophen (Tylenol Tab*) 650 mg PO Q4H PRN PRN Reason: PAIN or TEMP > 101 F Last Admin: 05/03/18 08:42 Dose: 650 mg Al Hydrox/Mg Hydrox/Simethicone (Maalox Plus*) 30 ml PO Q4H PRN PRN Reason: INDIGESTION Chlorpromazine HCl (Thorazine Tab*) 50 mg PO Q4H PRN PRN Reason: AGITATION Last Admin: 05/04/18 08:34 Dose: 50 mg Device (Nicotine Mouth Piece*) 1 each INH .USE W/ CARTRIDGE PRN PRN Reason: WITHDRAWAL - NICOTINE Haloperidol Lactate (Haldol Inj Iv/Im*) 5 mg IM ONCE PRN PRN Reason: AGITATION Ibuprofen (Motrin Tab*) 600 mg PO Q4H PRN PRN Reason: PAIN Lorazepam (Ativan Tab(*)) 2 mg PO Q4H PRN PRN Reason: agitation/anxiety Lorazepam (Ativan Inj*) 2 mg IM ONCE PRN PRN Reason: AGITATION Multivitamins (Theragran Tab*) 1 tab PO DAILY [facility] Last Admin: 05/05/18 10:06 Dose: Not Given Nicotine (Nicotine Inhaler*) 10 mg INH Q2H PRN PRN Reason: CRAVING Olanzapine (Zyprexa * Tab Odt) 5 mg PO BID [facility] Last Admin: 05/05/18 10:06 Dose: 5 mg - Discharge Plan Discharge Plan: Inpatient Hospitalization
[2018-05-06] MEDS: Vitamin THERAPEUTIC TAB PO SCH (08:52)
[2018-05-06] MEDS: OLANzapine TAB*ODT* 5 MG PO SCH ×2 (08:52→22:31)
--- NOTE | 2018-05-06 11:52 | PN ---
Subjective - Subjective Date of Service: 05/06/18 Service Type: [id number] Hosp care 35 min high complexity Subjective: Patient has been awake since morning routines. He agrees to meet with his parents and providers including Tricia Guzmán LMSW. He declines to sign ROIs or to allow providers to speak to his parents without his presence. We discuss diagnosis of bipolar d/o, most recent episode manic with psychotic features. He agrees with diagnosis and identifies feeling "hypomanic." Patient's mother, Maddy asked questions regard discharge planning and medications. Ishaan presented as overwhelmed. Ishaan inquires about lithium and states he would consider. Patient denies physical pain or need for imaging. Objective - Appearance Appearance: Thin Framed Dysmorphic Features: No Hygiene: Normal Grooming: Well Kept - Behavior Psychomotor Activities: Normal Exhibits Abnormal Movement: No - Attitude and Relatedness Attitude and Relatedness: Cooperative Eye Contact: Good - Speech Quality: Pressured Latencies: Short Quantity: Appropriate - Mood Patient's Decription of Mood: "Great" - Affect Observed Affect: Expansive Affect Consistent with: Euphoria - Thought Process Patient's Thought Process: Disorganized, Tangential Thought Content: Yes Paranoid Ideation, No Passive Wish, No Suicidal Planning, No Homicidal Ideation - Sensorium Experiencing Hallucinations: No, Sensorium is Clear - declines Type of Hallucinations: Visual: No, Auditory: No, Command: No - Level of Consciousness Level of Consciousness: Alert Orientation: Yes Intact, Yes Orientated to Time, Yes Orientated to Place, Yes Orientated to Person - Impulse Control Impulse Control: Impaired - Insight and Judgement Insight and Judgement: Impaired - Group Participation Particating in Group Activities: Yes - Medication Management Medication Management Adherence: Yes Assessment - Assessment Merits Inpatient Hospitalization: For Immediate Safety, For Stabilization Inpatient DSM-V Dx: F31.62 - bipolar I d/o, current episode mixed Clinical Impression: 27yo wm with one prior psychiatric hospitalization who presents to ED with acute onset psychosis including aggression and destructive behavior. He merits hospitalization for immediate safety and stabilization. Plan - Plan Treatment Plan: Name: ISHAAN PARKINSON Birthdate: 1990 [id number] continue acute intensive psychiatric treatment. continue q15min observation continue current medications. consider paliperidone or lurasidone per patient consent. utilize thorazine, lorazepam prn as ordered for agitation. DC imaging at this time. Continued Medication Management: Consider Medication Medications: Current Medications Acetaminophen (Tylenol Tab*) 650 mg PO Q4H PRN PRN Reason: PAIN or TEMP > 101 F Last Admin: 05/03/18 08:42 Dose: 650 mg Al Hydrox/Mg Hydrox/Simethicone (Maalox Plus*) 30 ml PO Q4H PRN PRN Reason: INDIGESTION Chlorpromazine HCl (Thorazine Tab*) 50 mg PO Q4H PRN PRN Reason: AGITATION Last Admin: 05/04/18 08:34 Dose: 50 mg Device (Nicotine Mouth Piece*) 1 each INH .USE W/ CARTRIDGE PRN PRN Reason: WITHDRAWAL - NICOTINE Haloperidol Lactate (Haldol Inj Iv/Im*) 5 mg IM ONCE PRN PRN Reason: AGITATION Ibuprofen (Motrin Tab*) 600 mg PO Q4H PRN PRN Reason: PAIN Lorazepam (Ativan Tab(*)) 2 mg PO Q4H PRN PRN Reason: agitation/anxiety Lorazepam (Ativan Inj*) 2 mg IM ONCE PRN PRN Reason: AGITATION Multivitamins (Theragran Tab*) 1 tab PO DAILY [facility] Last Admin: 05/06/18 08:52 Dose: 1 tab Nicotine (Nicotine Inhaler*) 10 mg INH Q2H PRN PRN Reason: CRAVING Olanzapine (Zyprexa * Tab Odt) 5 mg PO BID [facility] Last Admin: 05/06/18 08:52 Dose: 5 mg - Discharge Plan Discharge Plan: Inpatient Hospitalization
--- NOTE | 2018-05-06 11:53 | PN ---
[facility]: Group Therapy Note - Service Type Service Type: 05554 Group Psychotherapy - Cognitive Behavioral Group Therapy ( CBT):Patient was attentive and participatory in CBT programming this morning, and remained in good behavioral control. Patient expressed positive insights regarding relevant treatment interventions and goals.
--- NOTE | 2018-05-07 09:38 | PN ---
Progress Note - Progress Note Date of Service: 05/07/18 Note: Called to a CAT team for pt lying in bed and not responding. Pt's eyelids closed and resists opening them, unable to visualize pupils. When attempted to pick pts arm an let is fall on his face it missed it twice. good muscle tone, Babinski neg. Lungs clear. CV : RRR no murmur. suspect the unresponsiveness is behavioral. Asked for pt to be evaluated by rounding psychiatrist SHAKIR
[2018-05-07 10:20] LABS: ALT 42 U/L (7-52); AST 52 U/L (13-39); Albumin 4.3 g/dL (3.2-5.2); Albumin/Globulin Ratio 1.4 (1-3); Alkaline Phosphatase 54 U/L (34-104); Amylase 31 U/L (29-103); Anion Gap 6 mmol/L (2-11); Blood Urea Nitrogen 9 mg/dL (6-24); CO2 Carbon Dioxide 26 mmol/L (22-32); Calcium 9.3 mg/dL (8.6-10.3); Chloride 106 mmol/L (101-111); EGFR African American 138.5 (>60); EGFR Non-African American 114.5 (>60); Glucose 110 mg/dL (70-100); Sodium 138 mmol/L (135-145); Total Protein 7.3 g/dL (6.4-8.9)
[2018-05-07] MEDS: Vitamin THERAPEUTIC TAB PO SCH ×2 (10:50→12:28)
[2018-05-07] MEDS: OLANzapine TAB*ODT* 5 MG PO SCH ×3 (10:50→22:08)
[2018-05-07 13:57] LABS: ABS Basophils 0 10^3/ul (0-0.2); ABS Eosinophils 0.1 10^3/ul (0-0.6); ABS Lymphocytes 0.6 10^3/ul (1.0-4.8); ABS Monocytes 0.6 10^3/ul (0-0.8); ABS Neutrophils 5.2 10^3/ul (1.5-7.7); ABS Nucleated RBC 0 10^3/ul; Eosinophil % 1.4 %; Hematocrit 41 % (42-52); Hemoglobin 13.9 g/dl (14.0-18.0); Lymphocyte % 8.7 %; Mean Corpuscular HGB Conc 34 g/dl (31-36); Mean Corpuscular Hemoglobin 31 pg (27-31); Mean Corpuscular Volume 91 fL (80-94); Mean Platelet Volume 6.9 fL (7.4-10.4); Nucleated Red Blood Cells % 0.1; Platelet Count 292 10^3/ul (150-450); Red Blood Count 4.49 10^6/ul (4.00-5.40); Red Cell Distribution Width 12 % (10.5-15); White Blood Count 6.5 10^3/ul (3.5-10.8)
[2018-05-07 14:29] LABS: Urine Appearance Clear; Urine Bilirubin Negative (Negative); Urine Blood Negative (Negative); Urine Color Yellow; Urine Glucose Negative (Negative); Urine Ketones Trace (Negative); Urine Nitrite Negative (Negative); Urine Protein Negative (Negative); Urine Urobilinogen Negative (Negative)
[2018-05-07] MEDS: LORazepam TAB(*) 1 MG PO PRN (18:34)
[2018-05-07 19:19] LABS: ABS Basophils 0 10^3/ul (0-0.2); ABS Eosinophils 0.2 10^3/ul (0-0.6); ABS Lymphocytes 1.5 10^3/ul (1.0-4.8); ABS Monocytes 0.7 10^3/ul (0-0.8); ABS Nucleated RBC 0 10^3/ul; Eosinophil % 3.2 %; Hematocrit 41 % (42-52); Hemoglobin 13.9 g/dl (14.0-18.0); Lymphocyte % 19.8 %; Mean Corpuscular HGB Conc 34 g/dl (31-36); Mean Corpuscular Hemoglobin 31 pg (27-31); Mean Corpuscular Volume 91 fL (80-94); Mean Platelet Volume 6.7 fL (7.4-10.4); Nucleated Red Blood Cells % 0; Platelet Count 311 10^3/ul (150-450); Red Blood Count 4.52 10^6/ul (4.00-5.40); Red Cell Distribution Width 12 % (10.5-15); White Blood Count 7.5 10^3/ul (3.5-10.8)
[2018-05-08] MEDS: Vitamin THERAPEUTIC TAB PO SCH (10:48)
[2018-05-08] MEDS: OLANzapine TAB*ODT* 5 MG PO SCH ×2 (10:48→21:26)
--- NOTE | 2018-05-08 18:23 | PN ---
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 I was informed by the same parents (confirmed by our nursing staff) that he had refused to sign a FAHEEM, allowing communication with parents, and politely reminded them of such. Mother (retired physician was vijay). I met with Ishaan alone, after parents left. He reports feeling better and eager for discharge, to look for jobs. He seems unaware of his parents' concerns, although he finally signed an FAHEEM for parents )under pressure from them). He denies A/VH or any bothersome psychiatric complaints, but he is clearly responding to internal stimuli and unable to carry a linear conversation. Objective - Appearance Appearance: Healthy Appearing Hygiene: Normal Grooming: Well Kept - Behavior Psychomotor Activities: Normal Exhibits Abnormal Movement: No - Attitude and Relatedness Attitude and Relatedness: Guarded Eye Contact: Poor - Speech Quality: Unpressured Latencies: Normal Quantity: Appropriate - Mood Patient's Decription of Mood: "Okay" - Affect Observed Affect: Non-labile - Thought Process Patient's Thought Process: Disorganized, Tangential Thought Content: No Passive Wish, No Suicidal Planning, No Homicidal Ideation, No Paranoid Ideation - Sensorium Experiencing Hallucinations: No, Sensorium is Clear Type of Hallucinations: Visual: No, Auditory: No, Command: No - Level of Consciousness Level of Consciousness: Alert Orientation: Yes Intact - Impulse Control Impulse Control: Tenuous - Insight and Judgement Insight and Judgement: Impaired - Group Participation Particating in Group Activities: No - Medication Management Medication Management Adherence: Partial Assessment - Assessment Inpatient DSM-V Dx: F31.62 - bipolar I d/o, current episode mixed Clinical Impression: 27yo wm with one prior psychiatric hospitalization who presents to ED with acute onset psychosis including aggression and destructive behavior. He merits hospitalization for immediate safety and stabilization. Remains psychotic and partially compliant with prescribed med. He needs further inpatient treatment for stabilization! Plan - Plan Treatment Plan: Name: ISHAAN PARKINSON Birthdate: 1990 [id number] continue acute intensive psychiatric treatment. continue q15min observation continue current medications. consider paliperidone or lurasidone per patient consent. utilize thorazine, lorazepam prn as ordered for agitation. DC imaging at this time. Medications: Current Medications Acetaminophen (Tylenol Tab*) 650 mg PO Q4H PRN PRN Reason: PAIN or TEMP > 101 F Last Admin: 05/03/18 08:42 Dose: 650 mg Al Hydrox/Mg Hydrox/Simethicone (Maalox Plus*) 30 ml PO Q4H PRN PRN Reason: INDIGESTION Chlorpromazine HCl (Thorazine Tab*) 50 mg PO Q4H PRN PRN Reason: AGITATION Last Admin: 05/04/18 08:34 Dose: 50 mg Device (Nicotine Mouth Piece*) 1 each INH .USE W/ CARTRIDGE PRN PRN Reason: WITHDRAWAL - NICOTINE Haloperidol Lactate (Haldol Inj Iv/Im*) 5 mg IM ONCE PRN PRN Reason: AGITATION Ibuprofen (Motrin Tab*) 600 mg PO Q4H PRN PRN Reason: PAIN Lorazepam (Ativan Tab(*)) 2 mg PO Q4H PRN PRN Reason: agitation/anxiety Last Admin: 05/07/18 18:34 Dose: 2 mg Lorazepam (Ativan Inj*) 2 mg IM ONCE PRN PRN Reason: AGITATION Multivitamins (Theragran Tab*) 1 tab PO DAILY [facility] Last Admin: 05/08/18 10:48 Dose: 1 tab Nicotine (Nicotine Inhaler*) 10 mg INH Q2H PRN PRN Reason: CRAVING Olanzapine (Zyprexa * Tab Odt) 5 mg PO BID [facility] Last Admin: 05/08/18 10:48 Dose: 5 mg - Discharge Plan Discharge Plan: Outpatient Follow Up Outpatient Program: [facility]
[2018-05-09] MEDS: OLANzapine TAB*ODT* 5 MG PO SCH (08:00)
[2018-05-09] MEDS: Vitamin THERAPEUTIC TAB PO SCH (08:00)
--- NOTE | 2018-05-09 13:56 | PN ---
Subjective - Subjective Date of Service: 05/09/18 Service Type: 48113 Hosp care 25 min moderate complexity Subjective: Patient presents as distractible with increased energy. He endorses paranoid ideation during conversation and appears to attend to internal stimuli. We discuss medication options, including lurasidone and aripiprazole, that have better side effect profiles than olanzapine. He states preference to wait until after he speaks with his mother. After visiting hours, patient requests to speak to me and states he would like a prescription for aripiprazole. He asks questions about staff pass agreement and adds verbiage to it prior to signing. Phone call returned to mother, Maddy Tellez. She expresses concerns about discharge plan and date. Resource Teacher validates and assures that discharge planning is ever-evolving depending on patient's presentation. She inquires about labs done and given results of those. She inquires about CRP and involvement with private detective, Dr Oswald. She advises against abdominal CT. Objective - Appearance Appearance: Thin Framed Dysmorphic Features: No Hygiene: Normal Grooming: Well Kept - Behavior Psychomotor Activities: Normal Exhibits Abnormal Movement: No - Attitude and Relatedness Attitude and Relatedness: Psychotically Related Eye Contact: Fair - Speech Quality: Pressured Latencies: Normal Quantity: Copious - Mood Patient's Decription of Mood: "Okay" - Affect Observed Affect: Tense Affect Consistent with: Euphoria - Thought Process Patient's Thought Process: Tangential, Over Inclusive Thought Content: Yes Paranoid Ideation, No Passive Wish, No Suicidal Planning, No Homicidal Ideation - Sensorium Experiencing Hallucinations: No, Sensorium is Clear - denies Type of Hallucinations: Visual: No, Auditory: No, Command: No - Level of Consciousness Level of Consciousness: Alert Orientation: Yes Intact, Yes Orientated to Time, Yes Orientated to Place, Yes Orientated to Person - Impulse Control Impulse Control: Tenuous - Insight and Judgement Insight and Judgement: Poor - Group Participation Particating in Group Activities: Yes - Medication Management Medication Management Adherence: Partial Assessment - Assessment Merits Inpatient Hospitalization: For Immediate Safety, For Stabilization, For Ongoing Evaluation Inpatient DSM-V Dx: F31.62 - bipolar I d/o, current episode mixed Clinical Impression: 27yo wm with one prior psychiatric hospitalization who presents to ED with acute onset psychosis including aggression and destructive behavior. He merits hospitalization for immediate safety and stabilization. Remains psychotic and partially compliant with prescribed med. He needs further inpatient treatment for stabilization. Plan - Plan Treatment Plan: Name: MARLO PARKINSON Birthdate: 1990 [id number] continue acute intensive psychiatric treatment. may decrease to q30min obs and allow staff pass/computer use per RN discretion. DC olanzapine, start aripiprazole. utilize thorazine, lorazepam prn as ordered for agitation. discharge planning to include family and outpatient providers per patient consent. Continued Medication Management: Different Medication Medications: Current Medications Acetaminophen (Tylenol Tab*) 650 mg PO Q4H PRN PRN Reason: PAIN or TEMP > 101 F Last Admin: 05/03/18 08:42 Dose: 650 mg Al Hydrox/Mg Hydrox/Simethicone (Maalox Plus*) 30 ml PO Q4H PRN PRN Reason: INDIGESTION Chlorpromazine HCl (Thorazine Tab*) 50 mg PO Q4H PRN PRN Reason: AGITATION Last Admin: 05/04/18 08:34 Dose: 50 mg Device (Nicotine Mouth Piece*) 1 each INH .USE W/ CARTRIDGE PRN PRN Reason: WITHDRAWAL - NICOTINE Haloperidol Lactate (Haldol Inj Iv/Im*) 5 mg IM ONCE PRN PRN Reason: AGITATION Ibuprofen (Motrin Tab*) 600 mg PO Q4H PRN PRN Reason: PAIN Lorazepam (Ativan Tab(*)) 2 mg PO Q4H PRN PRN Reason: agitation/anxiety Last Admin: 05/07/18 18:34 Dose: 2 mg Multivitamins (Theragran Tab*) 1 tab PO DAILY [facility] Last Admin: 05/09/18 08:00 Dose: 1 tab Nicotine (Nicotine Inhaler*) 10 mg INH Q2H PRN PRN Reason: CRAVING Olanzapine (Zyprexa * Tab Odt) 5 mg PO BID [facility] Last Admin: 05/09/18 08:00 Dose: 5 mg - Discharge Plan Discharge Plan: Inpatient Hospitalization Outpatient Program: [facility]
[2018-05-09] MEDS: LORazepam TAB(*) 1 MG PO PRN (18:59)
[2018-05-09] MEDS ORDERED: ARIPiprazole TAB* 15 MG PO SCH (21:00)
[2018-05-10 08:42] LABS: ABS Basophils 0 10^3/ul (0-0.2); ABS Eosinophils 0.2 10^3/ul (0-0.6); ABS Monocytes 0.5 10^3/ul (0-0.8); ABS Neutrophils 3.4 10^3/ul (1.5-7.7); ABS Nucleated RBC 0 10^3/ul; Eosinophil % 3.8 %; Hematocrit 42 % (42-52); Hemoglobin 14.3 g/dl (14.0-18.0); Lymphocyte % 20.2 %; Mean Corpuscular HGB Conc 34 g/dl (31-36); Mean Corpuscular Hemoglobin 31 pg (27-31); Mean Corpuscular Volume 90 fL (80-94); Mean Platelet Volume 6.6 fL (7.4-10.4); Nucleated Red Blood Cells % 0; Platelet Count 340 10^3/ul (150-450); Red Blood Count 4.69 10^6/ul (4.00-5.40); Red Cell Distribution Width 12 % (10.5-15); White Blood Count 5.2 10^3/ul (3.5-10.8)
--- NOTE | 2018-05-10 11:52 | PN ---
BSU: Group Therapy Note - Service Type Service Type: [id number] Group Psychotherapy - CBT Group Note: Ishaan was attentive and participatory in programming this morning, engaging in discussion of neuropsychology. He expressed frustration about his continuing inpatient status , but responded positively to discussion addressing adherence to medication and diminished symptoms.
[2018-05-10] MEDS: Vitamin THERAPEUTIC TAB PO SCH (15:23)
--- NOTE | 2018-05-10 15:45 | PN ---
Subjective - Subjective Date of Service: 05/10/18 Service Type: [id number] Hosp care 25 min moderate complexity Subjective: Patient is noted to have bizarre and reactive conversations with peer. He states that he is not sure if he is "comfortable" with his roommate. He states that he was thinking clearly and in an organized fashion until a recent conversation with him. He endorses topics of paranoia between the two of them. He presents with paranoid ideation during conversation with treatment team providers. He states that his visit with his mother today was "good and bad." He inquires about timing of discharge and is encouraged that goal is dependent on presentation and safety planning. Conversation is often interrupted by him due to questions about noise outside of room. He appears irritable and states frustration that he is trying to be quiet and meditate. He denies history of AH or VH; endorses grandiosity, flight of ideas. Generator Mechanic notifies him of unremarkable stool sample culture. He reports his "guts feel really bad" and requests semiconductor testing group leader consult. Per staff, patient noted to eat dirt during staff pass last evening. He submitted request for court hearing yesterday. Objective - Appearance Appearance: Thin Framed Dysmorphic Features: Yes Hygiene: Normal Grooming: Fairly Well Kept - Behavior Psychomotor Activities: Normal Exhibits Abnormal Movement: No - Attitude and Relatedness Attitude and Relatedness: Needy Eye Contact: Fair - Speech Quality: Unpressured Latencies: Short Quantity: Appropriate - Mood Patient's Decription of Mood: "Fine" - Affect Observed Affect: Expansive Affect Consistent with: Euphoria - Thought Process Patient's Thought Process: Disorganized, Loose Associations Thought Content: Yes Paranoid Ideation, No Passive Wish, No Suicidal Planning, No Homicidal Ideation - Sensorium Experiencing Hallucinations: No, Sensorium is Clear - denies Type of Hallucinations: Visual: No, Auditory: No, Command: No - Level of Consciousness Level of Consciousness: Alert Orientation: Yes Intact, Yes Orientated to Time, Yes Orientated to Place, Yes Orientated to Person - Impulse Control Impulse Control: Poor - Insight and Judgement Insight and Judgement: Impaired - Group Participation Particating in Group Activities: No - Medication Management Medication Management Adherence: Yes Assessment - Assessment Merits Inpatient Hospitalization: For Immediate Safety, For Stabilization, For Ongoing Evaluation Inpatient DSM-V Dx: F31.62 - bipolar I d/o, current episode mixed Clinical Impression: 27yo wm with one prior psychiatric hospitalization who presents to ED with acute onset psychosis including aggression and destructive behavior. He remains psychotic and hypomanic. He needs further inpatient treatment for stabilization. Plan - Plan Treatment Plan: Name: MARLO PARKINSON Birthdate: 1990 [id number] continue acute intensive psychiatric treatment. may decrease to q30min obs and allow staff pass/computer use per RN discretion. increase dose of aripiprazole. utilize thorazine, lorazepam prn as ordered for agitation. request GI consult per patient and his mother discharge planning to include family and outpatient providers per patient consent. Continued Medication Management: Start Medication Medications: Current Medications Acetaminophen (Tylenol Tab*) 650 mg PO Q4H PRN PRN Reason: PAIN or TEMP > 101 F Last Admin: 05/03/18 08:42 Dose: 650 mg Al Hydrox/Mg Hydrox/Simethicone (Maalox Plus*) 30 ml PO Q4H PRN PRN Reason: INDIGESTION Aripiprazole (Abilify Tab*) 20 mg PO BEDTIME [facility] Chlorpromazine HCl (Thorazine Tab*) 50 mg PO Q4H PRN PRN Reason: AGITATION Last Admin: 05/04/18 08:34 Dose: 50 mg Device (Nicotine Mouth Piece*) 1 each INH .USE W/ CARTRIDGE PRN PRN Reason: WITHDRAWAL - NICOTINE Haloperidol Lactate (Haldol Inj Iv/Im*) 5 mg IM ONCE PRN PRN Reason: AGITATION Ibuprofen (Motrin Tab*) 600 mg PO Q4H PRN PRN Reason: PAIN Lorazepam (Ativan Tab(*)) 2 mg PO Q4H PRN PRN Reason: agitation/anxiety Last Admin: 05/09/18 18:59 Dose: 2 mg Multivitamins (Theragran Tab*) 1 tab PO DAILY [facility] Last Admin: 05/10/18 15:23 Dose: Not Given Nicotine (Nicotine Inhaler*) 10 mg INH Q2H PRN PRN Reason: CRAVING - Discharge Plan Discharge Plan: Inpatient Hospitalization
[2018-05-10] MEDS: ARIPiprazole TAB* 20 MG PO SCH (22:00)
[2018-05-11] MEDS: Vitamin THERAPEUTIC TAB PO SCH (08:45)
[2018-05-11] MEDS: LORazepam TAB(*) 1 MG PO PRN (09:05)
--- NOTE | 2018-05-11 14:21 | PN ---
Subjective - Subjective Date of Service: 05/11/18 Service Type: 57154 Hosp care 35 min high complexity Subjective: Per staff, patient is disorganized and engaging in suspicious activity. For example, he is intrusive to female peer and hides objects in his pant pockets that are contraband. Patient denies malicious intent and is skeptical of staff when they are attempting to perform routine safety checks. He presents as distressed and agitated. During conversation, he is receptive to tag writer. He describes himself as full of love and kindness. Hearing Aid Repair Technician validates and encourages patient that above behaviors are related to exacerbation of psychiatric illness. He agrees to take half of prescribed dose of lorazepam. Hearing Aid Repair Technician joined patient and mother, Maddy during visiting hours. Patient expresses disagreement with provider and mother meeting without his presence. Maddy inquires about diagnosis, treatment planning and estimation of hospitalization. Such topics are clearly distressing to patient. Hearing Aid Repair Technician attempts to generalize statements due to patient presence or to redirect conversation and is often interrupted. Objective - Appearance Appearance: Thin Framed Dysmorphic Features: No Hygiene: Normal Grooming: Well Kept - Behavior Psychomotor Activities: Normal Exhibits Abnormal Movement: No - Attitude and Relatedness Attitude and Relatedness: Psychotically Related Eye Contact: Good - Speech Quality: Unpressured Latencies: Short Quantity: Appropriate - Thought Process Patient's Thought Process: Disorganized, Filght of Ideas Thought Content: Yes Paranoid Ideation, No Passive Wish, No Suicidal Planning, No Homicidal Ideation - Sensorium Experiencing Hallucinations: No, Sensorium is Clear Type of Hallucinations: Visual: No, Auditory: No, Command: No - Level of Consciousness Level of Consciousness: Alert Orientation: Yes Intact, Yes Orientated to Time, Yes Orientated to Place, Yes Orientated to Person - Impulse Control Impulse Control: Poor - Insight and Judgement Insight and Judgement: Impaired - Group Participation Particating in Group Activities: No - Medication Management Medication Management Adherence: Yes Assessment - Assessment Merits Inpatient Hospitalization: For Immediate Safety, For Stabilization Inpatient DSM-V Dx: F31.62 - bipolar I d/o, current episode mixed Clinical Impression: 27yo wm with one prior psychiatric hospitalization who presents to ED with acute onset psychosis including aggression and destructive behavior. He remains psychotic and hypomanic. He needs further inpatient treatment for stabilization. Plan - Plan Treatment Plan: Name: MARLO PARKINSON Birthdate: 1990 [id number] continue acute intensive psychiatric treatment. convert to 2PC status. decrease to q15min obs and hold staff pass. add clonazepam BID, continue titration of aripiprazole. utilize thorazine, lorazepam prn as ordered for agitation. DC GI consult discharge planning to include family and outpatient providers per patient consent. Continued Medication Management: Start Medication Medications: Current Medications Acetaminophen (Tylenol Tab*) 650 mg PO Q4H PRN PRN Reason: PAIN or TEMP > 101 F Last Admin: 05/03/18 08:42 Dose: 650 mg Al Hydrox/Mg Hydrox/Simethicone (Maalox Plus*) 30 ml PO Q4H PRN PRN Reason: INDIGESTION Aripiprazole (Abilify Tab*) 20 mg PO BEDTIME [facility] Last Admin: 05/10/18 22:00 Dose: 20 mg Chlorpromazine HCl (Thorazine Tab*) 50 mg PO Q4H PRN PRN Reason: AGITATION Last Admin: 05/04/18 08:34 Dose: 50 mg Clonazepam (Klonopin Tab(*)) 0.5 mg PO BID [facility] Device (Nicotine Mouth Piece*) 1 each INH .USE W/ CARTRIDGE PRN PRN Reason: WITHDRAWAL - NICOTINE Haloperidol Lactate (Haldol Inj Iv/Im*) 5 mg IM ONCE PRN PRN Reason: AGITATION Ibuprofen (Motrin Tab*) 600 mg PO Q4H PRN PRN Reason: PAIN Lorazepam (Ativan Tab(*)) 2 mg PO Q4H PRN PRN Reason: agitation/anxiety Last Admin: 05/11/18 09:05 Dose: 1 mg Multivitamins (Theragran Tab*) 1 tab PO DAILY [facility] Last Admin: 05/11/18 08:45 Dose: 1 tab Nicotine (Nicotine Inhaler*) 10 mg INH Q2H PRN PRN Reason: CRAVING - Discharge Plan Discharge Plan: Inpatient Hospitalization
[2018-05-11] MEDS: ARIPiprazole TAB* 20 MG PO SCH (22:01)
[2018-05-11] MEDS: clonazePAM TAB(*) 0.5 MG PO SCH (22:05)
[2018-05-12] MEDS: Vitamin THERAPEUTIC TAB PO SCH ×2 (10:25→13:44)
[2018-05-12] MEDS: clonazePAM TAB(*) 0.5 MG PO SCH ×3 (10:25→22:23)
[2018-05-12] MEDS: OLANzapine TAB*ODT* 5 MG PO ONE ×2 (10:25→13:46)
--- NOTE | 2018-05-12 16:11 | PN ---
Subjective - Subjective Date of Service: 05/12/18 Service Type: 01718 Hosp care 35 min high complexity Subjective: Patient presents as anxious and reports fearful of staff. He refers to [facility] as "evil." During conversation with greeting card writer, he requests "Zyprexa" by name. We discuss use of benzodiazepine for ricky as he is not consenting to mood stabilizer. Per staff, patient agitated during last evening visiting hours, cursed at and demanded that his parents leave abruptly. Screw Machine Setter returns call to patient's mother to give update. After discussing above information, she is increasing loud and agitated when discussing yesterday's meeting. She accuses greeting card writer of triangulation and not taking into account that his behaviors may be due to individual characteristics. Screw Machine Setter attempts to explain information that was difficult to portray in patient's presence. Objective - Appearance Appearance: Thin Framed Dysmorphic Features: Yes Hygiene: Normal Grooming: Well Kept - Behavior Psychomotor Activities: Normal Exhibits Abnormal Movement: No - Attitude and Relatedness Attitude and Relatedness: Psychotically Related Eye Contact: Good - Speech Quality: Pressured Latencies: Long Quantity: Copious - Mood Patient's Decription of Mood: "am i real?" - Affect Observed Affect: Expansive Affect Consistent with: Euphoria - Thought Process Patient's Thought Process: Disorganized Thought Content: Yes Paranoid Ideation, No Passive Wish, No Suicidal Planning, No Homicidal Ideation - Sensorium Experiencing Hallucinations: No, Sensorium is Clear Type of Hallucinations: Visual: No, Auditory: No, Command: No - Level of Consciousness Level of Consciousness: Alert Orientation: Yes Intact, Yes Orientated to Time, Yes Orientated to Place, Yes Orientated to Person - Impulse Control Impulse Control: Impaired - Insight and Judgement Insight and Judgement: Impaired - Group Participation Particating in Group Activities: No - Medication Management Medication Management Adherence: Partial Assessment - Assessment Merits Inpatient Hospitalization: For Immediate Safety, For Stabilization, For Ongoing Evaluation Inpatient DSM-V Dx: F31.62 - bipolar I d/o, current episode mixed Clinical Impression: 27yo wm with one prior psychiatric hospitalization who presents to ED with acute onset psychosis including aggression and destructive behavior. He remains psychotic and hypomanic. He needs further inpatient treatment for stabilization. Plan - Plan Treatment Plan: Name: MARLO PARKINSON Birthdate: 1990 [id number] continue acute intensive psychiatric treatment. convert to 2PC status. decrease to q15min obs and hold staff pass. DC aripiprazole. start olanzapine 10mg BID. continue scheduled clonazepam. utilize thorazine, lorazepam prn as ordered for agitation. discharge planning to include family and outpatient providers per patient consent. Continued Medication Management: Different Medication Medications: Current Medications Acetaminophen (Tylenol Tab*) 650 mg PO Q4H PRN PRN Reason: PAIN or TEMP > 101 F Last Admin: 05/03/18 08:42 Dose: 650 mg Al Hydrox/Mg Hydrox/Simethicone (Maalox Plus*) 30 ml PO Q4H PRN PRN Reason: INDIGESTION Chlorpromazine HCl (Thorazine Tab*) 50 mg PO Q4H PRN PRN Reason: AGITATION Last Admin: 05/04/18 08:34 Dose: 50 mg Clonazepam (Klonopin Tab(*)) 0.5 mg PO BID [facility] Last Admin: 05/12/18 13:43 Dose: 0.5 mg Device (Nicotine Mouth Piece*) 1 each INH .USE W/ CARTRIDGE PRN PRN Reason: WITHDRAWAL - NICOTINE Haloperidol Lactate (Haldol Inj Iv/Im*) 5 mg IM ONCE PRN PRN Reason: AGITATION Ibuprofen (Motrin Tab*) 600 mg PO Q4H PRN PRN Reason: PAIN Lorazepam (Ativan Tab(*)) 2 mg PO Q4H PRN PRN Reason: agitation/anxiety Last Admin: 05/11/18 09:05 Dose: 1 mg Multivitamins (Theragran Tab*) 1 tab PO DAILY [facility] Last Admin: 05/12/18 13:44 Dose: 1 tab Nicotine (Nicotine Inhaler*) 10 mg INH Q2H PRN PRN Reason: CRAVING Olanzapine (Zyprexa *Odt*) 10 mg PO BID [facility] - Discharge Plan Discharge Plan: Inpatient Hospitalization
[2018-05-12] MEDS: OLANzapine TAB*ODT* 10 MG TAB PO SCH ×2 (18:42→19:22)
[2018-05-12] MEDS: LORazepam TAB(*) 1 MG PO PRN (18:42)
[2018-05-13] MEDS: OLANzapine TAB*ODT* 10 MG TAB PO SCH ×2 (08:52→21:01)
[2018-05-13] MEDS: clonazePAM TAB(*) 0.5 MG PO SCH ×2 (08:52→19:45)
[2018-05-13] MEDS: Vitamin THERAPEUTIC TAB PO SCH (08:54)
--- NOTE | 2018-05-13 15:56 | PN ---
Subjective - Subjective Date of Service: 05/13/18 Service Type: 78045 Hosp care 25 min moderate complexity Subjective: Patient accepted medication this morning. Upon presentation, he states concern that he is " inside." His topic of speech is tangential from there, including statements such as "I'm tough...even if they anesthetize me and eat my organs." He refers to himself as unique and needed to help the world like Sarthak, Bishop and Arrogene. He writes a list of vitamins he would like due to Crohn's disease. He reports mild diarrhea, denies bloody stool, abdominal pain or distress. Objective - Appearance Appearance: Thin Framed Dysmorphic Features: Yes Hygiene: Normal Grooming: Well Kept - Behavior Psychomotor Activities: Normal Exhibits Abnormal Movement: No - Attitude and Relatedness Attitude and Relatedness: Psychotically Related Eye Contact: Fair - Speech Quality: Pressured Latencies: Short Quantity: Copious - Mood Patient's Decription of Mood: " inside" - Affect Observed Affect: Expansive Affect Consistent with: Euphoria - Thought Process Patient's Thought Process: Disorganized, Tangential Thought Content: Yes Paranoid Ideation, No Passive Wish, No Suicidal Planning, No Homicidal Ideation - Sensorium Experiencing Hallucinations: No, Sensorium is Clear Type of Hallucinations: Visual: No, Auditory: No, Command: No - Level of Consciousness Level of Consciousness: Alert Orientation: Yes Intact, Yes Orientated to Time, Yes Orientated to Place, Yes Orientated to Person - Impulse Control Impulse Control: Impaired - Insight and Judgement Insight and Judgement: Impaired - Group Participation Particating in Group Activities: No - Medication Management Medication Management Adherence: Yes Assessment - Assessment Inpatient DSM-V Dx: F31.62 - bipolar I d/o, current episode mixed Clinical Impression: 27yo wm with one prior psychiatric hospitalization who presents to ED with acute onset psychosis including aggression and destructive behavior. He remains psychotic and hypomanic. He needs further inpatient treatment for stabilization. Plan - Plan Treatment Plan: Name: MARLO PARKINSON Birthdate: 1990 [id number] continue acute intensive psychiatric treatment. convert to 2PC status. may increase to q30min and allow staff pass per RN discretion add vitamin regimen. continue current psychiatric medications. utilize thorazine, lorazepam prn as ordered for agitation. discharge planning to include family and outpatient providers per patient consent. Continued Medication Management: Different Medication Medications: Current Medications Acetaminophen (Tylenol Tab*) 650 mg PO Q4H PRN PRN Reason: PAIN or TEMP > 101 F Last Admin: 05/03/18 08:42 Dose: 650 mg Al Hydrox/Mg Hydrox/Simethicone (Maalox Plus*) 30 ml PO Q4H PRN PRN Reason: INDIGESTION Chlorpromazine HCl (Thorazine Tab*) 50 mg PO Q4H PRN PRN Reason: AGITATION Last Admin: 05/04/18 08:34 Dose: 50 mg Clonazepam (Klonopin Tab(*)) 0.5 mg PO BID [facility] Last Admin: 05/13/18 08:52 Dose: 0.5 mg Device (Nicotine Mouth Piece*) 1 each INH .USE W/ CARTRIDGE PRN PRN Reason: WITHDRAWAL - NICOTINE Haloperidol Lactate (Haldol Inj Iv/Im*) 5 mg IM ONCE PRN PRN Reason: AGITATION Ibuprofen (Motrin Tab*) 600 mg PO Q4H PRN PRN Reason: PAIN Lorazepam (Ativan Tab(*)) 2 mg PO Q4H PRN PRN Reason: agitation/anxiety Last Admin: 05/12/18 18:42 Dose: 2 mg Multivitamins (Theragran Tab*) 1 tab PO DAILY [facility] Last Admin: 05/13/18 08:54 Dose: Not Given Nicotine (Nicotine Inhaler*) 10 mg INH Q2H PRN PRN Reason: CRAVING Olanzapine (Zyprexa *Odt*) 10 mg PO BID [facility] Last Admin: 05/13/18 08:52 Dose: 10 mg - Discharge Plan Discharge Plan: Inpatient Hospitalization
[2018-05-13] MEDS ORDERED: OLANZAPINE 10 MG IM ONE (19:10)
[2018-05-13] MEDS ORDERED: Olanzapine INJ(NF) 10 MG VIAL IM ONE (19:14)
[2018-05-13] MEDS: chlorproMAZINE TAB* 50 MG PO PRN (19:45)
[2018-05-13] MEDS: LORazepam TAB(*) 1 MG PO PRN (19:45)
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
[2018-05-14] MEDS: Cholecalciferol TAB* 400 UNIT PO SCH (09:29)
[2018-05-14] MEDS: Vitamin B Complex TAB PO SCH (09:29)
[2018-05-14] MEDS: OLANzapine TAB*ODT* 10 MG TAB PO SCH ×2 (09:35→20:26)
[2018-05-14] MEDS: Cetirizine* 10 MG TAB PO SCH (09:36)
[2018-05-14] MEDS: Vitamin THERAPEUTIC TAB PO SCH (09:36)
[2018-05-14] MEDS: Lactobacillus Acidophilus* 1 TAB PO SCH (09:36)
[2018-05-14] MEDS: Magnesium Oxide TAB* 400 MG PO SCH (09:36)
[2018-05-14] MEDS: Cyanocobalamin TAB* 500 MCG PO SCH (09:36)
[2018-05-14] MEDS: clonazePAM TAB(*) 0.5 MG PO SCH ×3 (09:36→20:26)
[2018-05-14] MEDS: Zinc Sulfate CAP* 220 MG PO SCH (09:37)
[2018-05-14] MEDS ORDERED: LORazepam INJ* 2 MG/ML 1 ML VIAL IM ONE (11:35)
[2018-05-14] MEDS ORDERED: LORazepam INJ* 2 MG/ML 1 ML VIAL ONE (11:46)
[2018-05-14] MEDS: chlorproMAZINE TAB* 50 MG PO PRN (21:05)
[2018-05-15] MEDS ORDERED: Olanzapine INJ(NF) 10 MG VIAL IM ONE ×2 (09:10→09:25)
[2018-05-15] MEDS: Cholecalciferol TAB* 400 UNIT PO SCH (10:45)
[2018-05-15] MEDS: clonazePAM TAB(*) 0.5 MG PO SCH ×2 (10:45→19:11)
[2018-05-15] MEDS: Magnesium Oxide TAB* 400 MG PO SCH (10:45)
[2018-05-15] MEDS: Cyanocobalamin TAB* 500 MCG PO SCH (10:45)
[2018-05-15] MEDS: Cetirizine* 10 MG TAB PO SCH (10:45)
[2018-05-15] MEDS: OLANzapine TAB*ODT* 10 MG TAB PO SCH ×2 (10:45→19:11)
[2018-05-15] MEDS: Lactobacillus Acidophilus* 1 TAB PO SCH (10:45)
[2018-05-15] MEDS: Vitamin B Complex TAB PO SCH (10:46)
[2018-05-15] MEDS: Vitamin THERAPEUTIC TAB PO SCH (10:46)
[2018-05-15] MEDS: Zinc Sulfate CAP* 220 MG PO SCH (10:46)
[2018-05-16] MEDS ORDERED: chlorproMAZINE INJ* 25 MG/ML 2 ML (50 MG) ONE (07:54)
[2018-05-16] MEDS ORDERED: LORazepam INJ* 2 MG/ML 1 ML VIAL ONE (07:55)
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
[2018-05-16] MEDS ORDERED: chlorproMAZINE INJ* 25 MG/ML 2 ML (50 MG) IM ONE (09:00)
[2018-05-16] MEDS ORDERED: LORazepam INJ* 2 MG/ML 1 ML VIAL IM ONE (09:00)
[2018-05-16] MEDS ORDERED: LORazepam TAB(*) 1 MG PO PRN (10:20)
[2018-05-16] MEDS ORDERED: chlorproMAZINE TAB* 100 MG PO PRN (12:21)
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
[2018-05-16] MEDS: OLANzapine TAB*ODT* 10 MG TAB PO SCH ×2 (13:26→20:49)
[2018-05-16] MEDS: Vitamin THERAPEUTIC TAB PO SCH (13:27)
[2018-05-16] MEDS: Cholecalciferol TAB* 400 UNIT PO SCH (13:27)
[2018-05-16] MEDS: clonazePAM TAB(*) 0.5 MG PO SCH ×2 (13:27→20:50)
[2018-05-16] MEDS: Zinc Sulfate CAP* 220 MG PO SCH (13:30)
[2018-05-16] MEDS: Cyanocobalamin TAB* 500 MCG PO SCH (13:30)
[2018-05-16] MEDS: Cetirizine* 10 MG TAB PO SCH (13:30)
[2018-05-16] MEDS: Vitamin B Complex TAB PO SCH (13:33)
[2018-05-16] MEDS: Lactobacillus Acidophilus* 1 TAB PO SCH (13:34)
[2018-05-16] MEDS: Magnesium Oxide TAB* 400 MG PO SCH (13:34)
[2018-05-17] MEDS: Vitamin THERAPEUTIC TAB PO SCH (09:06)
[2018-05-17] MEDS: Vitamin B Complex TAB PO SCH (09:07)
[2018-05-17] MEDS: clonazePAM TAB(*) 0.5 MG PO SCH (09:08)
[2018-05-17] MEDS: OLANzapine TAB*ODT* 10 MG TAB PO SCH (09:08)
[2018-05-17] MEDS: Cholecalciferol TAB* 400 UNIT PO SCH (09:09)
[2018-05-17] MEDS: Magnesium Oxide TAB* 400 MG PO SCH (09:09)
[2018-05-17] MEDS: Cyanocobalamin TAB* 500 MCG PO SCH (09:09)
[2018-05-17] MEDS: Cetirizine* 10 MG TAB PO SCH (09:13)
[2018-05-17] MEDS: Lactobacillus Acidophilus* 1 TAB PO SCH (09:13)
[2018-05-17] MEDS: Zinc Sulfate CAP* 220 MG PO SCH (09:13)
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
[2018-05-17] MEDS ORDERED: chlorproMAZINE INJ* 25 MG/ML 2 ML (50 MG) ONE (11:37)
[2018-05-17] MEDS ORDERED: chlorproMAZINE INJ* 25 MG/ML 2 ML (50 MG) IM ONE (11:38)
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
[2018-05-18] MEDS: OLANzapine TAB*ODT* 10 MG TAB PO SCH ×3 (01:36→19:06)
[2018-05-18] MEDS: clonazePAM TAB(*) 0.5 MG PO SCH ×3 (01:36→19:06)
[2018-05-18] MEDS: Cetirizine* 10 MG TAB PO SCH (10:59)
[2018-05-18] MEDS: Lactobacillus Acidophilus* 1 TAB PO SCH (11:00)
[2018-05-18] MEDS: Vitamin B Complex TAB PO SCH (11:01)
[2018-05-18] MEDS: Cholecalciferol TAB* 400 UNIT PO SCH (11:01)
[2018-05-18] MEDS: Vitamin THERAPEUTIC TAB PO SCH (11:01)
[2018-05-18] MEDS: Magnesium Oxide TAB* 400 MG PO SCH (11:02)
[2018-05-18] MEDS: Cyanocobalamin TAB* 500 MCG PO SCH (11:02)
[2018-05-18] MEDS: Zinc Sulfate CAP* 220 MG PO SCH (11:09)
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
[2018-05-18] MEDS: Lithium Carbonate TAB* 300 MG PO SCH (19:06)
[2018-05-19] MEDS: clonazePAM TAB(*) 0.5 MG PO SCH ×2 (10:17→20:16)
[2018-05-19] MEDS: Cetirizine* 10 MG TAB PO SCH (10:17)
[2018-05-19] MEDS: OLANzapine TAB*ODT* 10 MG TAB PO SCH ×2 (10:25→20:16)
[2018-05-19] MEDS: Lithium Carbonate TAB* 300 MG PO SCH (20:16)
[2018-05-20] MEDS: Acetaminophen TAB* 325 MG PO PRN (13:05)
[2018-05-20] MEDS: clonazePAM TAB(*) 0.5 MG PO SCH (13:12)
[2018-05-20] MEDS: Cetirizine* 10 MG TAB PO SCH (13:12)
[2018-05-20] MEDS: OLANzapine TAB*ODT* 10 MG TAB PO SCH ×2 (13:12→14:43)
--- NOTE | 2018-05-20 15:02 | PN ---
Subjective - Subjective Date of Service: 05/20/18 Service Type: [id number] Hosp care 25 min moderate complexity Subjective: Ishaan spent most of today and yesterday not interacting with staff or allowing this clinician to interview him. At times he wedged his body against his door, which was open a crack, and would not let staff enter. He went 24 hours without taking any meds except for his scheduled lithium last night. His mom then visited today for lunch and he was observed yelling at her, however, he allowed her to hug him at the end of the interaction. Thereafter, he took his morning olanzapine and let me talk with him. "I want to get better. I want to get out of here. I want to go outside. I guess my medicine is the best way to get there." He has now gone greater than 48 hours without requiring restraint or stat meds. Ishaan reports that his delusions of persecution and hyperreligiosity come and go. Objective - Appearance Appearance: Thin Framed Dysmorphic Features: No Hygiene: Normal Grooming: Fairly Well Kept - Behavior Psychomotor Activities: Normal Exhibits Abnormal Movement: No - Attitude and Relatedness Attitude and Relatedness: Cooperative Eye Contact: Poor - Speech Quality: Unpressured Latencies: Short Quantity: Terse - Mood Patient's Decription of Mood: "Anxious" - Affect Observed Affect: Labile Affect Consistent with: Dysphoria - Thought Process Patient's Thought Process: Disorganized Thought Content: Yes Paranoid Ideation, No Passive Wish, No Suicidal Planning, No Homicidal Ideation - Sensorium Experiencing Hallucinations: No, Sensorium is Clear Type of Hallucinations: Visual: No, Auditory: No, Command: No - Level of Consciousness Level of Consciousness: Alert Orientation: Yes Intact, Yes Orientated to Time, Yes Orientated to Place, Yes Orientated to Person - Impulse Control Impulse Control: Poor - Insight and Judgement Insight and Judgement: Impaired - Group Participation Particating in Group Activities: No - Medication Management Medication Management Adherence: Partial Assessment - Assessment Merits Inpatient Hospitalization: For Immediate Safety, For Stabilization Inpatient DSM-V Dx: F31.62 - bipolar I d/o, current episode mixed Clinical Impression: 27 y.o. single, white male with a history autism spectrum disorder and affective problems with one prior psychiatric hospitalization who presents to the ED with acute onset psychosis including aggression and destructive behavior. He remains psychotic with likely mixed-manic bipolar presentation. Plan - Plan Treatment Plan: Name: ISHAAN PARKINSON Birthdate: 1990 [id number] The patient continues to have control issues with mixed adherence to indicated diagnostic and therapeutic interventions. He is scheduled to receive olanzapine 10mg PO BID, clonazepam 0.5mg PO BID and lithium 600mg PO qhs, however, compliance is on and off, likely related to ambivalence about getting well. He had been receiving frequent interventions with manual restraint and various prn psychotropics due to poorly controlled agitation, but lately he's just being disengaged. We will continue to encourage adherence with recommended interventions, including labs, EEG, brain MRI and lithium. I spoke with outpatient GI specialist Dr. Oswald who has ordered Remicade IV for Wednesday (05/23) for treatment of chronic Chron's. Continue inpatient treatment. Continued Medication Management: Start Medication Medications: Current Medications Acetaminophen (Tylenol Tab*) 650 mg PO Q4H PRN PRN Reason: PAIN or TEMP > 101 F Last Admin: 05/20/18 13:05 Dose: 650 mg Al Hydrox/Mg Hydrox/Simethicone (Maalox Plus*) 30 ml PO Q4H PRN PRN Reason: INDIGESTION Cetirizine HCl (Zyrtec*) 10 mg PO DAILY [facility]; Protocol Last Admin: 05/20/18 13:12 Dose: Not Given Chlorpromazine HCl (Thorazine Tab*) 100 mg PO Q4H PRN PRN Reason: AGITATION Last Admin: 05/17/18 16:30 Dose: 100 mg Clonazepam (Klonopin Tab(*)) 0.5 mg PO BID [facility] Last Admin: 05/20/18 13:12 Dose: Not Given Device (Nicotine Mouth Piece*) 1 each INH .USE W/ CARTRIDGE PRN PRN Reason: WITHDRAWAL - NICOTINE Infliximab-DYYB 400 mg/ Sodium (Chloride) 250 mls @ 0 mls/hr IVPB ONCE ONE; Protocol Stop: 05/23/18 09:01 Ibuprofen (Motrin Tab*) 600 mg PO Q4H PRN PRN Reason: PAIN [place] Carbonate ([place] Carbonate Tab*) 600 mg PO BEDTIME [facility] Last Admin: 05/19/18 20:16 Dose: 600 mg Nicotine (Nicotine Inhaler*) 10 mg INH Q2H PRN PRN Reason: CRAVING Olanzapine (Zyprexa *Odt*) 10 mg PO BID [facility] Last Admin: 05/20/18 14:43 Dose: 10 mg - Discharge Plan Discharge Plan: Inpatient Hospitalization
[2018-05-20] MEDS ORDERED: chlorproMAZINE INJ* 25 MG/ML 2 ML (50 MG) ONE (21:08)
[2018-05-20] MEDS ORDERED: chlorproMAZINE INJ* 25 MG/ML 2 ML (50 MG) IM ONE (22:00)
[2018-05-21] MEDS: clonazePAM TAB(*) 0.5 MG PO SCH ×4 (00:15→19:14)
[2018-05-21] MEDS: OLANzapine TAB*ODT* 10 MG TAB PO SCH ×4 (00:15→19:15)
[2018-05-21] MEDS: Lithium Carbonate TAB* 300 MG PO SCH ×2 (00:15→19:14)
--- NOTE | 2018-05-21 01:06 | PN ---
Hospitalist Progress Note Date of Service: 05/20/18 I was called to evaluate Ishaan after physical restrains were used. Nursing explained that he demonstrated agitation and IM thorazine was attempted, but he had tried to hit nurses, so physical restrains were used to administer the medication and then removed. When I came to see him, he was sitting in the lounge area watching tv with two other people. He says he is having scary delusions. Asks if I am going to cut him open and steal his organs. He is reassured by our conversation. He is calm and pleasant.
[2018-05-21] MEDS ORDERED: chlorproMAZINE INJ* 25 MG/ML 2 ML (50 MG) ONE (08:27)
[2018-05-21] MEDS: Cetirizine* 10 MG TAB PO SCH (09:03)
--- NOTE | 2018-05-21 09:26 | PROCNOTE ---
- Assessment for Patient Restraint Evaluation of the Patient's Immediate Situation: Patient seen at bedside. He was under manual hold earlier and required Thorazine. He's now laying down in bed, arousable to voice. He declined physical examination because my stethoscope is an electronic one. Offered no complaints. Patient's Reaction to Intervention: Calm and compliant now. Patient's Medication and Behavioral Condition: Received manual hold and Thorazine. Evaluate Need for Continued Restraint: Terminate - Manual hold no longer required
[2018-05-22] MEDS: clonazePAM TAB(*) 0.5 MG PO SCH ×2 (07:25→20:41)
[2018-05-22] MEDS: OLANzapine TAB*ODT* 10 MG TAB PO SCH ×2 (07:25→20:41)
[2018-05-22] MEDS: Cetirizine* 10 MG TAB PO SCH (07:26)
[2018-05-22 09:27] LABS: Folate 18.77 ng/mL (>3.99)
[2018-05-22] MEDS: Lithium Carbonate TAB* 300 MG PO SCH (20:41)
[2018-05-23] MEDS ORDERED: inFLIXimab-DYYB (Inflectra) 100 MG/10 ML VIAL IVPB ONE (08:00)
[2018-05-23] MEDS ORDERED: INFLIXIMAB DYYB IVPB ONE (09:00)
[2018-05-23] MEDS ORDERED: NS 0.9% IVPB ONE (09:00)
[2018-05-23] MEDS: clonazePAM TAB(*) 0.5 MG PO SCH ×3 (10:44→22:41)
[2018-05-23] MEDS: Cetirizine* 10 MG TAB PO SCH (10:44)
[2018-05-23] MEDS: Vitamin THERAPEUTIC TAB PO SCH (10:44)
[2018-05-23] MEDS: OLANzapine TAB*ODT* 10 MG TAB PO SCH ×3 (10:44→22:40)
--- NOTE | 2018-05-23 13:13 | PN ---
BSU: Group Therapy Note - Service Type Service Type: [id number] Group Psychotherapy - Cognitive Behavioral Group Therapy ( CBT):Patient presented in CBT programming as disorganized and disruptive in discussion and needed repeated redirection to attend to presented materials. He is also malorderous, and impresses as intentionally disrupting programming, engaging in odd behaviors such as leaving and re-entering the room repeatedly, as well as standing outside the room staring in through the windows.
--- NOTE | 2018-05-23 13:26 | PN ---
Subjective - Subjective Date of Service: 05/23/18 Service Type: 90999 Hosp care 25 min moderate complexity Subjective: Ishaan is seen in his room along with his mother, Maddy, who is visiting over the lunch hour. He has his head drooped down to the floor and is drooling, which he attributes to lithium. "My head is in pain. It goes from hot to cold. I think I wouldn't be this way if I wasn't locked up in this place." He is refusing the Remicade infusion ordered by lag screwer, Dr. Oswald. "I'm not going to take it unless I see him. I need to see him first." This clinician informs Ishaan that I cannot promise this, but I did agree to call Dr. Oswald's office to see if he could visit the patient on the BSU. Ishaan acted out several times over the weekend and required more than one stat administration of chlorpromazine, which I informed him has an association with hypersalivation. Objective - Appearance Appearance: Thin Framed Dysmorphic Features: No Hygiene: Normal Grooming: Fairly Well Kept - Behavior Psychomotor Activities: Normal Exhibits Abnormal Movement: No - Attitude and Relatedness Attitude and Relatedness: Psychotically Related Eye Contact: Poor - Speech Quality: Unpressured Latencies: Short Quantity: Copious - Mood Patient's Decription of Mood: "Terrible" - Affect Observed Affect: Labile Affect Consistent with: Dysphoria - Thought Process Patient's Thought Process: Disorganized Thought Content: Yes Paranoid Ideation, No Passive Wish, No Suicidal Planning, No Homicidal Ideation - Sensorium Experiencing Hallucinations: No, Sensorium is Clear Type of Hallucinations: Visual: No, Auditory: No, Command: No - Level of Consciousness Level of Consciousness: Alert Orientation: Yes Intact, Yes Orientated to Time, Yes Orientated to Place, Yes Orientated to Person - Impulse Control Impulse Control: Poor - Insight and Judgement Insight and Judgement: Impaired - Group Participation Particating in Group Activities: No - Medication Management Medication Management Adherence: Partial Assessment - Assessment Merits Inpatient Hospitalization: For Immediate Safety, For Stabilization Inpatient DSM-V Dx: F31.62 - bipolar I d/o, current episode mixed Clinical Impression: 27 y.o. single, white male with a history autism spectrum disorder and affective problems with one prior psychiatric hospitalization who presents to the ED with acute onset psychosis including aggression and destructive behavior. He remains psychotic with likely mixed-manic bipolar presentation. Plan - Plan Treatment Plan: Name: ISHAAN PARKINSON Birthdate: 1990 [id number] The patient continues to have control issues with mixed adherence to indicated diagnostic and therapeutic interventions. He is scheduled to receive olanzapine 10mg PO BID, clonazepam 0.5mg PO BID and lithium 600mg PO qhs, however, compliance is on and off, likely related to ambivalence about getting well. He had been receiving frequent interventions with manual restraint and various prn psychotropics due to poorly controlled agitation. We will continue to encourage adherence with recommended interventions, including labs, EEG, brain MRI and lithium. I left a message with the office of outpatient GI specialist Dr. Oswald who has ordered Remicade IV for Wednesday (05/23) for treatment of chronic Chron's. Patient currently refusing this. Continue inpatient treatment. Continued Medication Management: Start Medication Medications: Current Medications Acetaminophen (Tylenol Tab*) 650 mg PO Q4H PRN PRN Reason: PAIN or TEMP > 101 F Last Admin: 05/20/18 13:05 Dose: 650 mg Al Hydrox/Mg Hydrox/Simethicone (Maalox Plus*) 30 ml PO Q4H PRN PRN Reason: INDIGESTION Cetirizine HCl (Zyrtec*) 10 mg PO DAILY [facility]; Protocol Last Admin: 05/23/18 10:44 Dose: 10 mg Chlorpromazine HCl (Thorazine Tab*) 100 mg PO Q4H PRN PRN Reason: AGITATION Last Admin: 05/17/18 16:30 Dose: 100 mg Clonazepam (Klonopin Tab(*)) 0.5 mg PO BID [facility] Last Admin: 05/23/18 10:44 Dose: 0.5 mg Device (Nicotine Mouth Piece*) 1 each INH .USE W/ CARTRIDGE PRN PRN Reason: WITHDRAWAL - NICOTINE Ibuprofen (Motrin Tab*) 600 mg PO Q4H PRN PRN Reason: PAIN Last Admin: 05/22/18 15:44 Dose: 600 mg [place] Carbonate ([place] Carbonate Tab*) 600 mg PO BEDTIME [facility] Last Admin: 05/22/18 20:41 Dose: 600 mg Multivitamins (Theragran Tab*) 1 tab PO DAILY [facility] Last Admin: 05/23/18 10:44 Dose: 1 tab Nicotine (Nicotine Inhaler*) 10 mg INH Q2H PRN PRN Reason: CRAVING Olanzapine (Zyprexa *Odt*) 10 mg PO BID [facility] Last Admin: 05/23/18 10:44 Dose: 10 mg - Discharge Plan Discharge Plan: Inpatient Hospitalization Lab Results - Lab Results Lab Results: 05/22/18 07:57 Vitamin B12 1053 H Folate 18.77
--- NOTE | 2018-05-23 16:53 | PN ---
Progress Note - Progress Note Date of Service: 05/23/18 Note: came to see pt to discuss his Crohn's dz; seems to be under good control now, but concerned that he does not want to continue his Remicade; no blood in stool , no abd pain, 1-2 bms per day VSS nad, alert, slow speech, asking appropriate questions and some not related to GI (He asked if I believed in God.), unkempt GI;+bs, soft, nt Heart: no mumur lungs; CTA b skin: no rash PMedHx: asthma, sb crohn's Surg: none All: NKDA Soc. no tob or etoh fam: no iBD Ros: other than mental health, 12 systems were neg admitted for mental health issues Crohn's stable, I would like him to continue with his Remicade, but he is refusing; does not offer a true reason why; concerned that he may flare, but pt is willing to continue to think about continuing; will hold off on Remicade for now Jerry Oswald MD [facility] [phone]
[2018-05-23] MEDS: Lactobacillus Acidophilus* 1 TAB PO SCH ×2 (22:20→22:41)
[2018-05-23] MEDS: Lithium Carbonate TAB* 300 MG PO SCH ×2 (22:20→22:40)
[2018-05-24] MEDS: clonazePAM TAB(*) 0.5 MG PO SCH ×2 (09:05→19:03)
[2018-05-24] MEDS: Vitamin THERAPEUTIC TAB PO SCH (09:05)
[2018-05-24] MEDS: Cetirizine* 10 MG TAB PO SCH (09:05)
[2018-05-24] MEDS: OLANzapine TAB*ODT* 10 MG TAB PO SCH ×2 (09:05→19:02)
[2018-05-24] MEDS: Lactobacillus Acidophilus* 1 TAB PO SCH ×2 (10:49→19:02)
--- NOTE | 2018-05-24 11:52 | PN ---
Subjective - Subjective Date of Service: 05/24/18 Service Type: 52950 Hosp care 15 min low complexity Subjective: Ishaan was uncooperative today and stayed in his bed under a blanket during my meeting with him, only peering up when I mentioned the possibility of a referral to one of the local [facility]. He continues to be selective with medications, skipping clonazepam and olanzapine last night but taking his lithium. This morning he took both clonazepam and olanzapine as directed, but only with encouragement from nursing. He has not acted out violently since this weekend and seems upset that we took two books away from him yesterday that seemed to be feeding into his paranoia. One was a book about robots by Kelton Sullivan. The other was a religiously-oriented thriller by Remington Klein. Ishaan denies SI or HI but continues to be delusional at times. He's gone to some groups but will do bizarre, disruptive things like picking up an eraser and staring at it. He spoke with document management specialist Dr. Oswald yesterday but continues to refuse his schedule q8wk dose of IV Remicade for reasons he cannot explain. Objective - Appearance Appearance: Thin Framed Dysmorphic Features: No Hygiene: Normal Grooming: Fairly Well Kept - Behavior Psychomotor Activities: Abnormal-Decreased Exhibits Abnormal Movement: No - Attitude and Relatedness Attitude and Relatedness: Psychotically Related Eye Contact: Poor - Speech Quality: Unpressured Latencies: Normal Quantity: Terse - Mood Patient's Decription of Mood: "Terrible" - Affect Observed Affect: Tense Affect Consistent with: Dysphoria - Thought Process Patient's Thought Process: Disorganized Thought Content: Yes Paranoid Ideation, No Passive Wish, No Suicidal Planning, No Homicidal Ideation - Sensorium Experiencing Hallucinations: No, Sensorium is Clear Type of Hallucinations: Visual: No, Auditory: No, Command: No - Level of Consciousness Level of Consciousness: Alert Orientation: Yes Intact, Yes Orientated to Time, Yes Orientated to Place, Yes Orientated to Person - Impulse Control Impulse Control: Poor - Insight and Judgement Insight and Judgement: Impaired - Group Participation Particating in Group Activities: No - Medication Management Medication Management Adherence: Partial Assessment - Assessment Merits Inpatient Hospitalization: For Immediate Safety, For Stabilization Inpatient DSM-V Dx: F31.62 - bipolar I d/o, current episode mixed Clinical Impression: 27 y.o. single, white male with a history autism spectrum disorder and affective problems with one prior psychiatric hospitalization who presents to the ED with acute onset psychosis including aggression and destructive behavior. He remains psychotic with likely mixed-manic bipolar presentation. Plan - Plan Treatment Plan: Name: ISHAAN PARKINSON Birthdate: 1990 [id number] The patient continues to have control issues with mixed adherence to indicated diagnostic and therapeutic interventions. He is scheduled to receive olanzapine 10mg PO BID, clonazepam 0.5mg PO BID and lithium 600mg PO qhs, however, compliance is on and off, likely related to ambivalence about getting well. He had been receiving frequent interventions with manual restraint and various prn psychotropics due to poorly controlled agitation. We will continue to encourage adherence with recommended interventions, including labs, EEG, brain MRI and lithium. Will check lithium level this afternoon. Continue inpatient treatment. Continued Medication Management: Start Medication Medications: Current Medications Acetaminophen (Tylenol Tab*) 650 mg PO Q4H PRN PRN Reason: PAIN or TEMP > 101 F Last Admin: 05/20/18 13:05 Dose: 650 mg Al Hydrox/Mg Hydrox/Simethicone (Maalox Plus*) 30 ml PO Q4H PRN PRN Reason: INDIGESTION Cetirizine HCl (Zyrtec*) 10 mg PO DAILY [facility]; Protocol Last Admin: 05/24/18 09:05 Dose: 10 mg Chlorpromazine HCl (Thorazine Tab*) 100 mg PO Q4H PRN PRN Reason: AGITATION Last Admin: 05/17/18 16:30 Dose: 100 mg Clonazepam (Klonopin Tab(*)) 0.5 mg PO BID [facility] Last Admin: 05/24/18 09:05 Dose: 0.5 mg Device (Nicotine Mouth Piece*) 1 each INH .USE W/ CARTRIDGE PRN PRN Reason: WITHDRAWAL - NICOTINE Ibuprofen (Motrin Tab*) 600 mg PO Q4H PRN PRN Reason: PAIN Last Admin: 05/22/18 15:44 Dose: 600 mg Lactobacillus Rhamnosus (Lactobacillus Acidophilus*) 1 tab PO BID [facility] Last Admin: 05/24/18 10:49 Dose: Not Given [place] Carbonate ([place] Carbonate Tab*) 600 mg PO BEDTIME [facility] Last Admin: 05/23/18 22:40 Dose: 600 mg Multivitamins (Theragran Tab*) 1 tab PO DAILY [facility] Last Admin: 05/24/18 09:05 Dose: 1 tab Nicotine (Nicotine Inhaler*) 10 mg INH Q2H PRN PRN Reason: CRAVING Olanzapine (Zyprexa *Odt*) 10 mg PO BID [facility] Last Admin: 05/24/18 09:05 Dose: 10 mg - Discharge Plan Discharge Plan: Consider Longer Term Tx Lab Results - Lab Results Lab Results: 05/22/18 07:57 Vitamin B12 1053 H Folate 18.77
[2018-05-24 15:25] LABS: Ceruloplasmin 28.7 mg/dL
[2018-05-24 15:45] LABS: Copper Level 1.25 mcg/mL (0.75-1.45); Zinc 0.79 mcg/mL (0.66-1.10)
--- NOTE | 2018-05-24 16:41 | PN ---
Progress Note - Progress Note Date of Service: 05/24/18 Note: telephone conversation with Dr Cox and pt's mother, Maddy Tellez; please see my note from yesterday re: conversation with Ishaan about not wanting Remicade; pt was agreeable to receiving Remicade today, however I was not made aware of this until Dr Cox called me this afternoon; approx 1 hour earlier, the [facility] pharmacy called to ask if I still wanted to give Ishaan the Remicade or not, and as I was not aware of Ishaan changing his mind, I told the pharmacy to cancel it ; I have spoken with Dr Cox and pt's mother today. If Ishaan is agreeable to the Remicade infusion, I would agree too. I see no medical contraindications to him receiving Remicade and would encourage it. Jerry Oswald MD [facility] [phone]
[2018-05-24] MEDS: Lithium Carbonate TAB* 300 MG PO SCH (19:03)
[2018-05-25] MEDS ORDERED: inFLIXimab-DYYB (Inflectra) 100 MG/10 ML VIAL IVPB ONE (08:00)
[2018-05-25] MEDS: Cetirizine* 10 MG TAB PO SCH (08:18)
[2018-05-25] MEDS: FLUoxetine CAP* 20 MG PO SCH (08:18)
[2018-05-25] MEDS: OLANzapine TAB*ODT* 10 MG TAB PO SCH ×3 (08:19→20:38)
[2018-05-25] MEDS: clonazePAM TAB(*) 0.5 MG PO SCH ×3 (08:19→20:37)
[2018-05-25] MEDS: Vitamin THERAPEUTIC TAB PO SCH (08:19)
[2018-05-25] MEDS ORDERED: INFLIXIMAB DYYB IVPB ONE (09:00)
[2018-05-25] MEDS ORDERED: NS 0.9% IVPB ONE (09:00)
[2018-05-25] MEDS: Lactobacillus Acidophilus* 1 TAB PO SCH (10:57)
[2018-05-25] MEDS ORDERED: LORazepam TAB(*) 1 MG PO ONE (11:00)
[2018-05-25] MEDS ORDERED: Acetaminophen TAB* 325 MG PO ONE (12:39)
[2018-05-25] MEDS ORDERED: diPHENhydraMINE PO* 25 MG PO ONE (12:40)
[2018-05-25] MEDS ORDERED: methylPREDNISolone SOD 40 MG* 1 ML VIAL IV ONE (12:40)
--- NOTE | 2018-05-25 13:21 | PN ---
Subjective - Subjective Date of Service: 05/25/18 Service Type: 31802 Hosp care 15 min low complexity Subjective: Ishaan is mostly walking around the unit, occasionally socializing with peers. 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 "I liked him. I think it will work." He has been taking his medications much more readily and has had no further episodes of agitation since this previous weekend (05/21). He steadfastly denies SI or HI. He is hesitant but essentially agreeable with allowing his Remicade infusion later this afternoon. He requests that his mother be allowed to be present during that treatment. Objective - General Observations Appearance: Well Groomed Appears Stated Age: Yes Stature: Thin Posture: WNL Eye Contact: Intermittent Behavior/Activity: WNL - Interaction Observations Attitude Towards Examiner: Anxious Stated Mood: Anxious Affect: Restricted Speech Pattern/Tone: Appropriate Thought Process: Circumstantial Perception: WNL Thought Content: WNL Hallucination Type: None Delusion Type: None - Cognitive Function Orientation: A&O x 4 Level of Consciousness: Awake Cognition: WNL Estimated Intelligence: Normal Insight: WNL Judgment Within Normal Limits: No Ability to Make Reasonable Decisions: Mildly Impaired - Medication Compliance Cooperative with Inpatient Medication Regimen: Partial - Group Participation Participates in Group Activities: No Assessment - Assessment Merits Inpatient Hospitalization: For Immediate Safety, For Stabilization Inpatient DSM-V Dx: F31.62 - bipolar I d/o, current episode mixed Clinical Impression: 27 y.o. single, white male with a history autism spectrum disorder and affective problems with one prior psychiatric hospitalization who presents to the ED with acute onset psychosis including aggression and destructive behavior. He remains psychotic with likely mixed-manic bipolar presentation. Plan - Plan Treatment Plan: Name: ISHAAN PARKINSON Birthdate: 1990 [id number] The patient appears a little improved today. He is receiving olanzapine 10mg PO BID, clonazepam 0.5mg PO BID, lithium 600mg PO qhs and now fluoxetine 20mg PO qday. No recent agitated behavior. Will try to administer Remicade infusion today. Appreciate GI input. We will continue to encourage adherence with recommended interventions, including labs, EEG, brain MRI. Will check lithium level this afternoon. Continue inpatient treatment. Continued Medication Management: Start Medication Medications: Current Medications Acetaminophen (Tylenol Tab*) 650 mg PO Q4H PRN PRN Reason: PAIN or TEMP > 101 F Last Admin: 05/20/18 13:05 Dose: 650 mg Al Hydrox/Mg Hydrox/Simethicone (Maalox Plus*) 30 ml PO Q4H PRN PRN Reason: INDIGESTION Cetirizine HCl (Zyrtec*) 10 mg PO DAILY [facility]; Protocol Last Admin: 05/25/18 08:18 Dose: 10 mg Chlorpromazine HCl (Thorazine Tab*) 100 mg PO Q4H PRN PRN Reason: AGITATION Last Admin: 05/17/18 16:30 Dose: 100 mg Clonazepam (Klonopin Tab(*)) 0.5 mg PO BID [facility] Last Admin: 05/25/18 08:19 Dose: 0.5 mg Device (Nicotine Mouth Piece*) 1 each INH .USE W/ CARTRIDGE PRN PRN Reason: WITHDRAWAL - NICOTINE Fluoxetine HCl (Prozac Cap*) 20 mg PO DAILY [facility] Last Admin: 05/25/18 08:18 Dose: 20 mg Ibuprofen (Motrin Tab*) 600 mg PO Q4H PRN PRN Reason: PAIN Last Admin: 05/22/18 15:44 Dose: 600 mg Lactobacillus Rhamnosus (Lactobacillus Acidophilus*) 1 tab PO BID [facility] Last Admin: 05/25/18 10:57 Dose: Not Given [place] Carbonate ([place] Carbonate Tab*) 600 mg PO BEDTIME [facility] Last Admin: 05/24/18 19:03 Dose: 600 mg Multivitamins (Theragran Tab*) 1 tab PO DAILY [facility] Last Admin: 05/25/18 08:19 Dose: 1 tab Nicotine (Nicotine Inhaler*) 10 mg INH Q2H PRN PRN Reason: CRAVING Olanzapine (Zyprexa *Odt*) 10 mg PO BID [facility] Last Admin: 05/25/18 08:19 Dose: 10 mg - Discharge Plan Discharge Plan: Inpatient Hospitalization Lab Results - Lab Results Lab Results: 05/22/18 07:57 Ceruloplasmin 28.7 Copper 1.25 Zinc 0.79
[2018-05-25] MEDS: Lithium Carbonate TAB* 300 MG PO SCH ×2 (18:56→20:38)
[2018-05-25] MEDS: [UNRECOGNIZED DRUG - OTHER] PO SCH (20:30)
[2018-05-26] MEDS: Cetirizine* 10 MG TAB PO SCH (10:03)
[2018-05-26] MEDS: Vitamin THERAPEUTIC TAB PO SCH (10:03)
[2018-05-26] MEDS: OLANzapine TAB*ODT* 10 MG TAB PO SCH ×2 (10:03→21:58)
[2018-05-26] MEDS: FLUoxetine CAP* 20 MG PO SCH (10:04)
[2018-05-26] MEDS: clonazePAM TAB(*) 0.5 MG PO SCH ×2 (10:04→19:53)
[2018-05-26] MEDS: [UNRECOGNIZED DRUG - OTHER] PO SCH ×2 (10:06→21:58)
--- NOTE | 2018-05-26 13:01 | PN ---
Subjective - Subjective Date of Service: 05/26/18 Service Type: 09971 Family Medical Psyc Subjective: Ishaan is seen for a family meeting with his parents, Adam and Maddy, and unit KATIE [facility]. Ishaan remains anguished, telling us that he still feels "like I'm dying inside." We discussed the treatment plan, including an increase in fluoxetine and change in lithium based on his blood level tonight. If he improves over the weekend we would like to get an EEG and MRI for diagnostic purposes. Ishaan seems overwhelmed by these things. He is also informed of the option of residential treatment after discharge but seems to have trouble processing this. "I want to go home with you guys...home is where the heart is. " He is highly dysphoric but denies SI. Objective - General Observations Appearance: Disheveled Appears Stated Age: Yes Stature: Thin Posture: Slumped Eye Contact: Avoidant Behavior/Activity: Slowed - Interaction Observations Attitude Towards Examiner: Anxious Stated Mood: Dysphoric Affect: Restricted Speech Pattern/Tone: Delayed Thought Process: Over Inclusive Perception: WNL Thought Content: Preoccupation/Ruminations, Paranoid Hallucination Type: Denies Delusion Type: Denies - Cognitive Function Orientation: A&O x 4 Level of Consciousness: Awake Cognition: WNL Estimated Intelligence: Normal Insight: WNL Judgment Within Normal Limits: Yes Ability to Make Reasonable Decisions: Moderately Impaired - Medication Compliance Cooperative with Inpatient Medication Regimen: Partial - Group Participation Participates in Group Activities: Partial Assessment - Assessment Merits Inpatient Hospitalization: For Immediate Safety, For Stabilization Inpatient DSM-V Dx: F31.62 - bipolar I d/o, current episode mixed Clinical Impression: 27 y.o. single, white male with a history autism spectrum disorder and affective problems with one prior psychiatric hospitalization who presents to the ED with acute onset psychosis including aggression and destructive behavior. He remains psychotic with likely mixed-manic bipolar presentation. Plan - Plan Treatment Plan: Name: ISHAAN PARKINSON Birthdate: 1990 [id number] The patient remains intensely dysphoric, although he is no longer acting out aggressively. He is receiving olanzapine 10mg PO BID, clonazepam 0.5mg PO BID, lithium 600mg PO qhs and now fluoxetine 20mg PO qday. Will increase fluoxetine to 40mg daily and check lithium level tonight. Remicade infusion is complete. Appreciate GI input. We will continue to encourage adherence with recommended interventions, including labs, EEG, brain MRI. Continue inpatient treatment. Continued Medication Management: Start Medication Medications: Current Medications Acetaminophen (Tylenol Tab*) 650 mg PO Q4H PRN PRN Reason: PAIN or TEMP > 101 F Last Admin: 05/20/18 13:05 Dose: 650 mg Al Hydrox/Mg Hydrox/Simethicone (Maalox Plus*) 30 ml PO Q4H PRN PRN Reason: INDIGESTION Cetirizine HCl (Zyrtec*) 10 mg PO DAILY [facility]; Protocol Last Admin: 05/26/18 10:03 Dose: 10 mg Chlorpromazine HCl (Thorazine Tab*) 100 mg PO Q4H PRN PRN Reason: AGITATION Last Admin: 05/17/18 16:30 Dose: 100 mg Clonazepam (Klonopin Tab(*)) 0.5 mg PO BID [facility] Last Admin: 05/26/18 10:04 Dose: 0.5 mg Device (Nicotine Mouth Piece*) 1 each INH .USE W/ CARTRIDGE PRN PRN Reason: WITHDRAWAL - NICOTINE Fluoxetine HCl (Prozac Cap*) 40 mg PO DAILY [facility] Ibuprofen (Motrin Tab*) 600 mg PO Q4H PRN PRN Reason: PAIN Last Admin: 05/22/18 15:44 Dose: 600 mg [place] Carbonate ([place] Carbonate Tab*) 600 mg PO BEDTIME [facility] Last Admin: 05/25/18 20:38 Dose: Not Given Multivitamins (Theragran Tab*) 1 tab PO DAILY [facility] Last Admin: 05/26/18 10:03 Dose: 1 tab Nicotine (Nicotine Inhaler*) 10 mg INH Q2H PRN PRN Reason: CRAVING Pto:Non-Formulary ( Culturelle Probiotics-Baby) 1 dose PO BID [facility] Last Admin: 05/26/18 10:06 Dose: Not Given Olanzapine (Zyprexa *Odt*) 10 mg PO BID [facility] Last Admin: 05/26/18 10:03 Dose: 10 mg - Discharge Plan Discharge Plan: Inpatient Hospitalization
[2018-05-26] MEDS: Lithium Carbonate TAB* 300 MG PO SCH (21:58)
[2018-05-27] MEDS: OLANzapine TAB*ODT* 10 MG TAB PO SCH ×3 (02:01→19:14)
[2018-05-27] MEDS: Lithium Carbonate TAB* 300 MG PO SCH ×2 (02:02→19:13)
[2018-05-27] MEDS: clonazePAM TAB(*) 0.5 MG PO SCH ×2 (09:01→19:13)
[2018-05-27] MEDS: FLUoxetine CAP* 20 MG PO SCH (09:01)
[2018-05-27] MEDS: Cetirizine* 10 MG TAB PO SCH (09:01)
[2018-05-27] MEDS: Vitamin THERAPEUTIC TAB PO SCH (09:02)
[2018-05-27] MEDS: [UNRECOGNIZED DRUG - OTHER] PO SCH ×2 (09:03→19:45)
[2018-05-27] MEDS ORDERED: hydrOXYzine HCL TAB* 50 MG ONE (12:41)
[2018-05-27] MEDS: hydrOXYzine HCL TAB* 50 MG PO PRN ×2 (12:45→19:11)
--- NOTE | 2018-05-27 13:42 | PN ---
Subjective - Subjective Date of Service: 05/27/18 Service Type: [id number] Hosp care 25 min moderate complexity Subjective: Ishaan could not pull himself together enough this morning to participate in the court hearing for his retention at the hospital. Later in the day I find him wandering around the unit, looking dyphoric with a downcast gaze. "I'll never get out of here. I feel like I'll be stuck here the rest of my life." He goes on to open up a little bit about the events that led him to be withdrawn from [facility]. He feels the issues continues to follow him because anyone who googles his name will find the things that were posted, which were attributed to him. "Sometimes I just think about changing my name." He does mention his love of the outdoors and hiking. 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 I've got a few leads for once I get out of here." He denies SI. We discussed his low lithium level yesterday and he is reluctant but ultimately agreeable with increasing the dose of this. Objective - General Observations Appearance: Unkempt Stature: Thin Posture: Slumped Eye Contact: Average Behavior/Activity: WNL - Interaction Observations Attitude Towards Examiner: Anxious Stated Mood: Dysphoric Affect: Restricted Speech Pattern/Tone: Delayed Thought Process: Circumstantial Perception: WNL Thought Content: Paranoid Hallucination Type: None Delusion Type: Persecution, Somatic - Cognitive Function Orientation: A&O x 4 Level of Consciousness: Awake Cognition: WNL Estimated Intelligence: Normal Insight: Difficulty Acknowledging Presence of Psyciatric Problems Judgment Within Normal Limits: No Ability to Make Reasonable Decisions: Moderately Impaired - Medication Compliance Cooperative with Inpatient Medication Regimen: Partial - Group Participation Participates in Group Activities: Partial Assessment - Assessment Merits Inpatient Hospitalization: For Immediate Safety, For Stabilization Inpatient DSM-V Dx: F31.62 - bipolar I d/o, current episode mixed Clinical Impression: 27 y.o. single, white male with a history autism spectrum disorder and affective problems with one prior psychiatric hospitalization who presents to the ED with acute onset psychosis including aggression and destructive behavior. He remains psychotic with likely mixed-manic bipolar presentation. Plan - Plan Treatment Plan: Name: ISHAAN PARKINSON Birthdate: 1990 [id number] The patient remains intensely dysphoric, although he is no longer acting out aggressively. He is receiving olanzapine 10mg PO BID, clonazepam 0.5mg PO BID, lithium 600mg PO qhs and now fluoxetine 40mg PO qday. Will increase lithium to 600mg PO BID since serum level was low at 0.46. His scheduled q8wk Remicade infusion was completed on May 25. Appreciate GI input. We will continue to encourage adherence with recommended interventions, including labs, EEG, brain MRI. Continue inpatient treatment. Continued Medication Management: Start Medication Medications: Current Medications Acetaminophen (Tylenol Tab*) 650 mg PO Q4H PRN PRN Reason: PAIN or TEMP > 101 F Last Admin: 05/20/18 13:05 Dose: 650 mg Al Hydrox/Mg Hydrox/Simethicone (Maalox Plus*) 30 ml PO Q4H PRN PRN Reason: INDIGESTION Cetirizine HCl (Zyrtec*) 10 mg PO DAILY [facility]; Protocol Last Admin: 05/27/18 09:01 Dose: 10 mg Chlorpromazine HCl (Thorazine Tab*) 100 mg PO Q4H PRN PRN Reason: AGITATION Last Admin: 05/17/18 16:30 Dose: 100 mg Clonazepam (Klonopin Tab(*)) 0.5 mg PO BID [facility] Last Admin: 05/27/18 09:01 Dose: 0.5 mg Device (Nicotine Mouth Piece*) 1 each INH .USE W/ [place] PRN PRN Reason: WITHDRAWAL - NICOTINE Fluoxetine HCl (Prozac Cap*) 40 mg PO DAILY [facility] Last Admin: 05/27/18 09:01 Dose: 40 mg Hydroxyzine HCl (Atarax Tab*) 50 mg PO Q6H PRN PRN Reason: ANXIETY/AGITATION Last Admin: 05/27/18 12:45 Dose: 50 mg Ibuprofen (Motrin Tab*) 600 mg PO Q4H PRN PRN Reason: PAIN Last Admin: 05/22/18 15:44 Dose: 600 mg [place] Carbonate ([place] Carbonate Tab*) 600 mg PO BID [facility] Multivitamins (Theragran Tab*) 1 tab PO DAILY [facility] Last Admin: 05/27/18 09:02 Dose: 1 tab Nicotine (Nicotine Inhaler*) 10 mg INH Q2H PRN PRN Reason: CRAVING Pto:Non-Formulary ( Culturelle Probiotics-Baby) 1 dose PO BID [facility] Last Admin: 05/27/18 09:03 Dose: 1 dose Olanzapine (Zyprexa *Odt*) 10 mg PO BID [facility] Last Admin: 05/27/18 09:02 Dose: 10 mg - Discharge Plan Discharge Plan: Inpatient Hospitalization Lab Results - Lab Results Lab Results: 05/22/18 05/27/18 07:57 08:31 Ceruloplasmin 28.7 [place] 0.46 L [place] 1.25 Zinc 0.79
[2018-05-28] MEDS: OLANzapine TAB*ODT* 10 MG TAB PO SCH ×2 (08:59→21:10)
[2018-05-28] MEDS: FLUoxetine CAP* 20 MG PO SCH (08:59)
[2018-05-28] MEDS: Cetirizine* 10 MG TAB PO SCH (09:00)
[2018-05-28] MEDS: Lithium Carbonate TAB* 300 MG PO SCH ×2 (09:00→21:10)
[2018-05-28] MEDS: clonazePAM TAB(*) 0.5 MG PO SCH ×2 (09:00→21:10)
[2018-05-28] MEDS: Vitamin THERAPEUTIC TAB PO SCH (09:00)
[2018-05-28] MEDS: [UNRECOGNIZED DRUG - OTHER] PO SCH ×2 (09:02→21:10)
[2018-05-28] MEDS: hydrOXYzine HCL TAB* 50 MG PO PRN (14:54)
[2018-05-29] MEDS: clonazePAM TAB(*) 0.5 MG PO SCH ×2 (09:01→20:22)
[2018-05-29] MEDS: Lithium Carbonate TAB* 300 MG PO SCH ×2 (09:01→20:22)
[2018-05-29] MEDS: Cetirizine* 10 MG TAB PO SCH (09:02)
[2018-05-29] MEDS: FLUoxetine CAP* 20 MG PO SCH (09:02)
[2018-05-29] MEDS: Vitamin THERAPEUTIC TAB PO SCH (09:02)
[2018-05-29] MEDS: OLANzapine TAB*ODT* 10 MG TAB PO SCH ×2 (09:02→20:22)
[2018-05-29] MEDS: [UNRECOGNIZED DRUG - OTHER] PO SCH (09:06)
[2018-05-30] MEDS: clonazePAM TAB(*) 0.5 MG PO SCH ×2 (08:47→20:09)
[2018-05-30] MEDS: Cetirizine* 10 MG TAB PO SCH (08:47)
[2018-05-30] MEDS: Lithium Carbonate TAB* 300 MG PO SCH ×2 (08:47→20:08)
[2018-05-30] MEDS: Vitamin THERAPEUTIC TAB PO SCH (08:47)
[2018-05-30] MEDS: FLUoxetine CAP* 20 MG PO SCH (08:47)
[2018-05-30] MEDS: OLANzapine TAB*ODT* 10 MG TAB PO SCH ×2 (08:47→20:08)
[2018-05-30] MEDS: [UNRECOGNIZED DRUG - OTHER] PO SCH (08:49)
--- NOTE | 2018-05-30 11:37 | PN ---
Subjective - Subjective Date of Service: 05/30/18 Service Type: [id number] Hosp care 15 min low complexity Subjective: Ishaan seems genuinely better today. Says his depression is improving. "I think the meds are working. I hope I don't have to be on them forever though." I discussed the extension of his privileges so that he can go outside on breaks and use the computer and he expressed gratitude. He is similarly agreeable with an EEG and MRI of the brain for diagnostic purposes. He denies SI or HI. He does complain of feeling overmedicated. I spoke with Ishaan's mother, Maddy ([phone]) and updated her on his progress. Objective - General Observations Appearance: Well Groomed Appears Stated Age: No Stature: Thin Posture: WNL Eye Contact: Average Behavior/Activity: Slowed - Interaction Observations Attitude Towards Examiner: Cooperative Stated Mood: Dysphoric Affect: Restricted Speech Pattern/Tone: Appropriate Thought Process: Coherent Perception: WNL Thought Content: WNL Hallucination Type: None Delusion Type: None - Cognitive Function Orientation: A&O x 4 Level of Consciousness: Awake Cognition: WNL Estimated Intelligence: Normal Insight: WNL Judgment Within Normal Limits: Yes Ability to Make Reasonable Decisions: Mildly Impaired - Medication Compliance Cooperative with Inpatient Medication Regimen: Yes - Group Participation Participates in Group Activities: Partial Assessment - Assessment Merits Inpatient Hospitalization: For Immediate Safety, For Stabilization Inpatient DSM-V Dx: F31.62 - bipolar I d/o, current episode mixed Clinical Impression: 27 y.o. single, white male with a history autism spectrum disorder and affective problems with one prior psychiatric hospitalization who presents to the ED with acute onset psychosis including aggression and destructive behavior. He remains psychotic with likely mixed-manic bipolar presentation. Plan - Plan Treatment Plan: Name: ISHAAN PARKINSON Birthdate: 1990 [id number] The patient appears to be improving, although still somewhat depressed. He is receiving olanzapine 10mg PO BID, clonazepam 0.5mg PO BID, lithium 600mg PO BIB and fluoxetine 40mg PO qday. Will recheck lithium level and order EEG and MRI of brain. His scheduled q8wk Remicade infusion was completed on May 25. Appreciate GI input. Will extend privileges to see how he does with this. Continue inpatient treatment. Medications: Current Medications Acetaminophen (Tylenol Tab*) 650 mg PO Q4H PRN PRN Reason: PAIN or TEMP > 101 F Last Admin: 05/20/18 13:05 Dose: 650 mg Al Hydrox/Mg Hydrox/Simethicone (Maalox Plus*) 30 ml PO Q4H PRN PRN Reason: INDIGESTION Cetirizine HCl (Zyrtec*) 10 mg PO DAILY [facility]; Protocol Last Admin: 05/30/18 08:47 Dose: 10 mg Chlorpromazine HCl (Thorazine Tab*) 100 mg PO Q4H PRN PRN Reason: AGITATION Last Admin: 05/17/18 16:30 Dose: 100 mg Clonazepam (Klonopin Tab(*)) 0.5 mg PO BID [facility] Last Admin: 05/30/18 08:47 Dose: 0.5 mg Device (Nicotine Mouth Piece*) 1 each INH .USE W/ [place]TR[place]GE PRN PRN Reason: WITHDRAWAL - NICOTINE Fluoxetine HCl (Prozac Cap*) 40 mg PO DAILY [facility] Last Admin: 05/30/18 08:47 Dose: 40 mg Hydroxyzine HCl (Atarax Tab*) 50 mg PO Q6H PRN PRN Reason: ANXIETY/AGITATION Last Admin: 05/28/18 14:54 Dose: 50 mg Ibuprofen (Motrin Tab*) 600 mg PO Q4H PRN PRN Reason: PAIN Last Admin: 05/22/18 15:44 Dose: 600 mg [place] Carbonate ([place] Carbonate Tab*) 600 mg PO BID [facility] Last Admin: 05/30/18 08:47 Dose: 600 mg Multivitamins (Theragran Tab*) 1 tab PO DAILY [facility] Last Admin: 05/30/18 08:47 Dose: 1 tab Nicotine (Nicotine Inhaler*) 10 mg INH Q2H PRN PRN Reason: CRAVING Pto:Non-Formulary ( Culturelle Probiotics-Baby) 1 dose PO DAILY [facility] Last Admin: 05/30/18 08:49 Dose: Not Given Olanzapine (Zyprexa *Odt*) 10 mg PO BID [facility] Last Admin: 05/30/18 08:47 Dose: 10 mg
[2018-05-30] MEDS: hydrOXYzine HCL TAB* 50 MG PO PRN (13:10)
--- NOTE | 2018-05-30 13:10 | PN ---
BSU: Group Therapy Note - Service Type Service Type: [id number] Group Psychotherapy - Cognitive Behavioral Group Therapy ( CBT):Patient was attentive and participatory in CBT programming this morning, and remained in good behavioral control. Patient expressed positive insights regarding relevant treatment interventions and goals.
[2018-05-31] MEDS: Lithium Carbonate TAB* 300 MG PO SCH ×2 (07:25→20:52)
[2018-05-31] MEDS: Cetirizine* 10 MG TAB PO SCH (07:25)
[2018-05-31] MEDS: Vitamin THERAPEUTIC TAB PO SCH (07:25)
[2018-05-31] MEDS: OLANzapine TAB*ODT* 10 MG TAB PO SCH (07:26)
[2018-05-31] MEDS: FLUoxetine CAP* 20 MG PO SCH (07:26)
[2018-05-31] MEDS: clonazePAM TAB(*) 0.5 MG PO SCH ×2 (07:26→20:54)
[2018-05-31] MEDS: [UNRECOGNIZED DRUG - OTHER] PO SCH (07:29)
--- NOTE | 2018-05-31 10:34 | PN ---
Subjective - Subjective Date of Service: 05/31/18 Service Type: [id number] Hosp care 15 min low complexity Subjective: Ishaan reports that his mood is improving but he complains of dizziness. I tried to review his vitals but see that he has not been allowing staff to check them in over a week. I encouraged him to allow staff to check these and he is agreeable. He feels somewhat overmedicated. He continues to deny SI or HI and is future oriented. "I want to stay with my parents. I think that will ground me." He is hopeful for discharge soon and is actively contemplating residential treatment at a facility such as [facility] or [facility]. He tolerated his MRI procedure well and allowed a lithium blood draw without resistance. Objective - General Observations Appearance: Well Groomed Appears Stated Age: No Stature: Tall Posture: WNL Eye Contact: Average Behavior/Activity: WNL - Interaction Observations Attitude Towards Examiner: Cooperative Stated Mood: Dysphoric Affect: Restricted Speech Pattern/Tone: Clear Thought Process: Coherent Perception: WNL Thought Content: WNL Hallucination Type: None Delusion Type: None - Cognitive Function Orientation: A&O x 4 Level of Consciousness: Awake Cognition: WNL Estimated Intelligence: Normal Insight: WNL Judgment Within Normal Limits: Yes - Medication Compliance Cooperative with Inpatient Medication Regimen: Yes - Group Participation Participates in Group Activities: Yes Assessment - Assessment Merits Inpatient Hospitalization: For Immediate Safety, For Stabilization Inpatient DSM-V Dx: F31.62 - bipolar I d/o, current episode mixed Clinical Impression: 27 y.o. single, white male with a history autism spectrum disorder and affective problems with one prior psychiatric hospitalization who presents to the ED with acute onset psychosis including aggression and destructive behavior. He remains psychotic with likely mixed-manic bipolar presentation. Plan - Plan Treatment Plan: Name: ISHAAN PARKINSON Birthdate: 1990 [id number] The patient appears to be improving, although still somewhat depressed. He is receiving olanzapine 10mg PO BID, clonazepam 0.25mg PO BID, lithium 600mg PO BIB and fluoxetine 40mg PO qday. Will decrease olanzapine to 7.5mg PO BID due to dizziness. [place] level is now therapeutic at 0.71. MRI of brain was normative. Still await EEG. His scheduled q8wk Remicade infusion was completed on May 25. Appreciate GI input. Will target discharge for June 02. Continued Medication Management: Start Medication Medications: Current Medications Acetaminophen (Tylenol Tab*) 650 mg PO Q4H PRN PRN Reason: PAIN or TEMP > 101 F Last Admin: 05/20/18 13:05 Dose: 650 mg Al Hydrox/Mg Hydrox/Simethicone (Maalox Plus*) 30 ml PO Q4H PRN PRN Reason: INDIGESTION Cetirizine HCl (Zyrtec*) 10 mg PO DAILY [facility]; Protocol Last Admin: 05/31/18 07:25 Dose: 10 mg Chlorpromazine HCl (Thorazine Tab*) 100 mg PO Q4H PRN PRN Reason: AGITATION Last Admin: 05/17/18 16:30 Dose: 100 mg Clonazepam (Klonopin Tab(*)) 0.25 mg PO BID [facility] Last Admin: 05/31/18 07:26 Dose: 0.25 mg Device (Nicotine Mouth Piece*) 1 each INH .USE W/ CARTRIDGE PRN PRN Reason: WITHDRAWAL - NICOTINE Fluoxetine HCl (Prozac Cap*) 40 mg PO DAILY [facility] Last Admin: 05/31/18 07:26 Dose: 40 mg Hydroxyzine HCl (Atarax Tab*) 50 mg PO Q6H PRN PRN Reason: ANXIETY/AGITATION Last Admin: 05/30/18 13:10 Dose: 50 mg Ibuprofen (Motrin Tab*) 600 mg PO Q4H PRN PRN Reason: PAIN Last Admin: 05/22/18 15:44 Dose: 600 mg [place] Carbonate ([place] Carbonate Tab*) 600 mg PO BID [facility] Last Admin: 05/31/18 07:25 Dose: 600 mg Multivitamins (Theragran Tab*) 1 tab PO DAILY [facility] Last Admin: 05/31/18 07:25 Dose: 1 tab Nicotine (Nicotine Inhaler*) 10 mg INH Q2H PRN PRN Reason: CRAVING Pto:Non-Formulary ( Culturelle Probiotics-Baby) 1 dose PO DAILY [facility] Last Admin: 05/31/18 07:29 Dose: 1 dose Olanzapine (Zyprexa *Odt*) 7.5 mg PO BID [facility] - Discharge Plan Discharge Plan: Inpatient Hospitalization Lab Results - Lab Results Lab Results: 05/31/18 07:12 [place] 0.71
--- NOTE | 2018-05-31 11:53 | PN ---
BSU: Group Therapy Note - Service Type Service Type: [id number] Group Psychotherapy - Cognitive Behavioral Group Therapy ( CBT):Patient was attentive and participatory in CBT programming this morning, and remained in good behavioral control. Patient expressed positive insights regarding relevant treatment interventions and goals.
--- NOTE | 2018-05-31 16:27 | EEG ---
ELECTROENCEPHALOGRAPHY: DATE OF STUDY: DATE OF DICTATION: 05/31/18. PATIENT OF: Dr. Cox. CLINICAL PROBLEM: This is a 27-year-old man that had visual hallucinations or altered vision. He saw people around him as abnormal (seeing his mother as a robot). He also had the delusion that people were beams of light from stars and he is a black hole. He had been hospitalized at [place] with similar complaints a couple of years ago. This study was done to evaluate for possible seizures. MEDICATIONS: Include: 1. Klonopin. 2. [place]. 3. Zyprexa. 4. Zyrtec. 5. Prozac. 6. Multivitamins. 7. Maalox. 8. Thorazine. 9. Atarax. 10. Nicotine. REPORT: With the patient awake, background cerebral activity consists of moderate amplitude, posterior dominant 9 to 10 Hz rhythm, which attenuates with eye opening and reappears with eye closure with some admixed theta range frequencies. The patient's feedback consists of a mixed frequency background of moderate amplitude, delta, theta, and beta range frequencies. No epileptiform potentials, focal abnormalities, or major asymmetries of background are noted. CLINICAL IMPRESSION: This awake and briefly asleep EEG is within normal limits. There is some slowing during the awake portion, which may be secondary to drowsiness or some of the patient's medications can contribute to the slowing as well. [id number] #: [id number] MTDD
[2018-05-31] MEDS: hydrOXYzine HCL TAB* 50 MG PO PRN (17:14)
[2018-05-31] MEDS: OLANzapine TAB*ODT* 5 MG PO SCH (20:52)
[2018-06-01] MEDS: [UNRECOGNIZED DRUG - OTHER] PO SCH (07:41)
[2018-06-01] MEDS: Cetirizine* 10 MG TAB PO SCH (07:48)
[2018-06-01] MEDS: FLUoxetine CAP* 20 MG PO SCH (07:48)
[2018-06-01] MEDS: clonazePAM TAB(*) 0.5 MG PO SCH ×2 (07:48→20:36)
[2018-06-01] MEDS: OLANzapine TAB*ODT* 5 MG PO SCH ×2 (07:49→20:37)
[2018-06-01] MEDS: Vitamin THERAPEUTIC TAB PO SCH (07:51)
[2018-06-01] MEDS: Lithium Carbonate TAB* 300 MG PO SCH ×2 (07:51→20:37)
[2018-06-01] MEDS: hydrOXYzine HCL TAB* 50 MG PO PRN (14:12)
--- NOTE | 2018-06-01 14:24 | PN ---
Subjective - Subjective Date of Service: 06/01/18 Service Type: [id number] Hosp care 25 min moderate complexity Subjective: This clinician received a phone call from Ishaan's father, Adam Jones ([phone]) , indicating that he had entered Ishaan's apartment and discovered a rifle in a case under the patient's bed. The father was advised to remove the firearm and to call the [facility]'s Dept. to have them take possession of it, which he agreed to. Ishaan continues to improve. He has been taking his medications as directed, allowing lab draws, going to groups and tolerating procedures such as EEG and MRI, both of which were within normal limits. He continues to deny SI or HI. When I confronted him about the weapon in his apartment he reacts anxiously, fearing that he will be in trouble. He insists that the weapon was legally obtained about a year ago and only for his own protection. "I don't need it to stay safe. I can rely on the police to keep me safe. I want to have a good relationship with the police. I don't want anyone to think that I'm dangerous." He is agreeable with the plan to have his parents hand the weapon over to law enforcement. I similarly notified him that I had filed a SAFE Act report on him, likely limiting his ability to purchase any further firearms in [place] in the future. He was agreeable with this. Ishaan is tolerating his medications well. His parents are concerned that new intakes in the [facility] clinic often don't see prescribing clinicians for a full 30 days after discharge. I placed a call to [facility] director Cristel Mercado who assured me that, given the patient's level of morbidity, they would move him up to being seen, likely by psychiatris Alex Petersen, the week of June 13. Ishaan will be staying with his parents until he can get into a residential treatment facility and SW is faxing his material to 2 facilities: [facility] in [place] and [facility] in [place]. Objective - General Observations Appearance: Well Groomed Stature: Thin Posture: WNL Eye Contact: Average Behavior/Activity: WNL - Interaction Observations Attitude Towards Examiner: Cooperative Stated Mood: Anxious Affect: Restricted Speech Pattern/Tone: Clear Thought Process: Coherent Perception: WNL Thought Content: WNL Hallucination Type: None Delusion Type: None - Cognitive Function Orientation: A&O x 4 Level of Consciousness: Awake Cognition: WNL Estimated Intelligence: Normal Insight: WNL Judgment Within Normal Limits: Yes Ability to Make Reasonable Decisions: Mildly Impaired - Medication Compliance Cooperative with Inpatient Medication Regimen: Yes - Group Participation Participates in Group Activities: Yes Assessment - Assessment Merits Inpatient Hospitalization: Consolidate Improvements, Pending Safe DC Plan Inpatient DSM-V Dx: F31.62 - bipolar I d/o, current episode mixed Clinical Impression: 27 y.o. single, white male with a history autism spectrum disorder and affective problems with one prior psychiatric hospitalization who presents to the ED with acute onset psychosis including aggression and destructive behavior. He remains psychotic with likely mixed-manic bipolar presentation. Plan - Plan Treatment Plan: Name: ISHAAN JONES Birthdate: 1990 [id number] Ishaan has made great progress over the last week. He is denying SI or HI and has no evidence of agitation or lack of self-care. He is receiving olanzapine 7.5mg PO BID, clonazepam 0.25mg PO BID, lithium 600mg PO BIB and fluoxetine 40mg PO qday. Red Creek level is now therapeutic at 0.71. MRI of brain was normative, as was his EEG. His scheduled q8wk Remicade infusion was completed on May 25. Appreciate GI input. We have file a SAFE Act report and encouraged the family to remove the firearm from his possession. Will target discharge for tomorrow, June 02. Continued Medication Management: Start Medication Medications: Current Medications Acetaminophen (Tylenol Tab*) 650 mg PO Q4H PRN PRN Reason: PAIN or TEMP > 101 F Last Admin: 05/20/18 13:05 Dose: 650 mg Al Hydrox/Mg Hydrox/Simethicone (Maalox Plus*) 30 ml PO Q4H PRN PRN Reason: INDIGESTION Cetirizine HCl (Zyrtec*) 10 mg PO DAILY RAFAEL; Protocol Last Admin: 06/01/18 07:48 Dose: 10 mg Chlorpromazine HCl (Thorazine Tab*) 100 mg PO Q4H PRN PRN Reason: AGITATION Last Admin: 05/17/18 16:30 Dose: 100 mg Clonazepam (Klonopin Tab(*)) 0.25 mg PO BID [facility] Last Admin: 06/01/18 07:48 Dose: 0.25 mg Device (Nicotine Mouth Piece*) 1 each INH .USE W/ CARTRIDGE PRN PRN Reason: WITHDRAWAL - NICOTINE Fluoxetine HCl (Prozac Cap*) 40 mg PO DAILY [facility] Last Admin: 06/01/18 07:48 Dose: 40 mg Hydroxyzine HCl (Atarax Tab*) 50 mg PO Q6H PRN PRN Reason: ANXIETY/AGITATION Last Admin: 06/01/18 14:12 Dose: 50 mg Ibuprofen (Motrin Tab*) 600 mg PO Q4H PRN PRN Reason: PAIN Last Admin: 05/22/18 15:44 Dose: 600 mg Red Creek Carbonate (Red Creek Carbonate Tab*) 600 mg PO BID [facility] Last Admin: 06/01/18 07:51 Dose: 600 mg Multivitamins (Theragran Tab*) 1 tab PO DAILY [facility] Last Admin: 06/01/18 07:51 Dose: 1 tab Nicotine (Nicotine Inhaler*) 10 mg INH Q2H PRN PRN Reason: CRAVING Pto:Non-Formulary ( Culturelle Probiotics-Baby) 1 dose PO DAILY [facility] Last Admin: 06/01/18 07:41 Dose: 1 dose Olanzapine (Zyprexa * Tab Odt) 7.5 mg PO BID [facility] Last Admin: 06/01/18 07:49 Dose: 7.5 mg - Discharge Plan Discharge Plan: Outpatient Follow Up Outpatient Program: [facility]
--- NOTE | 2018-06-01 16:36 | PN ---
BSU: Group Therapy Note - Service Type Service Type: 90023 Group Psychotherapy - Medication Education Group: Patient was attentive and participatory in group, and remained in good behavioral control. Patient expressed positive insights regarding relevant treatment interventions. Patient stated understanding of material discussed and had appropriate questions.
[2018-06-02] MEDS: Cetirizine* 10 MG TAB PO SCH (08:03)
[2018-06-02] MEDS: Vitamin THERAPEUTIC TAB PO SCH (08:03)
[2018-06-02] MEDS: clonazePAM TAB(*) 0.5 MG PO SCH (08:03)
[2018-06-02] MEDS: Lithium Carbonate TAB* 300 MG PO SCH (08:04)
[2018-06-02] MEDS: FLUoxetine CAP* 20 MG PO SCH (08:04)
[2018-06-02] MEDS: OLANzapine TAB*ODT* 5 MG PO SCH (08:05)
[2018-06-02] MEDS: [UNRECOGNIZED DRUG - OTHER] PO SCH (09:56)
[2018-06-02 10:23] VITALS: BP 116/68
[2018-06-02] MEDS: hydrOXYzine HCL TAB* 50 MG PO PRN (16:39)
--- NOTE | 2018-06-03 22:24 | DS ---
DISCHARGE SUMMARY: DATE OF ADMISSION: 05/01/18 DATE OF DISCHARGE: 06/02/18 DISCHARGE DIAGNOSES: Dunbar I: Bipolar disorder, type 1, most recent episode, mixed, severe with psychotic features. Autism spectrum disorder. Dunbar II: Deferred. CONDITION AT THE TIME OF DISCHARGE: Improved. Ishaan is no longer disorganized , agitated, or combative. Although he continues to suffer with anxiety, he is much more euthymic. He is tolerating his medications without untoward effects. It has been well over a week since we had any evidence of agitation or overtly bizarre thinking. The patient is mostly reality-based at this time. He is calm and future oriented, stating that he would like to spend some time at his parents' house before looking into longer term residential treatment. We have made referrals to both [facility] in [place], [place] as well as [facility] in [place], [place], both of which are residential treatment settings. The patient has been safe on all checks. We have been able to extend his privileges such that he can use the computer and go outside for fresh air. He has had daily visitation with his parents which has been going well. He is agreeable to their restrictions such as having restricted use of the computer at home. The patient owned a firearm which has been safely disposed of. We see no barriers to him receiving further treatment in the outpatient setting given the fact that Ishaan is agreeable with referral to the [facility] program through [facility]. LABS: Comprehensive metabolic testing was performed on 05/04/18. At that time , his hemoglobin A1c was 4.8, triglycerides 53, cholesterol 107, LDL cholesterol 43, HDL cholesterol 53.6. MENTAL STATUS EXAM AT THE TIME OF DISCHARGE: Ishaan is a slender, somewhat tall white male with a wispy saucedo, with fair grooming, wearing cargo pants and a hooded sweatshirt. He is clean, well groomed, calm, cooperative, making good eye contact. Speech is slow, but articulate. Mood appears to be mildly anxious with somewhat anxious affect. Thought process is linear and goal directed. Thought content is significant for his desire to be discharged from the hospital. He is denying suicidal or homicidal ideations. He denies auditory or visual hallucinations. Insight and judgment appear to be fair given his willingness to follow up with outpatient treatment. Cognitively, he is awake and alert with what would appear to be an average intellect. DISCHARGE INSTRUCTIONS: To the patient are as follows: Part A: He is discharged on: 1. Olanzapine 7.5 mg p.o. b.i.d. 2. Clarinda carbonate 600 mg p.o. b.i.d. 3. Fluoxetine 40 mg p.o. daily. 4. Zyrtec 10 mg p.o. daily. 5. Klonopin 0.5 mg p.o. b.i.d. 6. Hydroxyzine 50 mg p.o. q.6 hours as a p.r.n. for anxiety. Part B: Diet is regular. Part C: Activities: As tolerated. The patient is a nonsmoker. There are no laboratory or diagnostic studies pending at the time of discharge. Part D: Followup care: The patient will follow up at [facility], where he will have his intake on 06/07/18, at 10:45 a.m. Part E: Substance abuse followup is nonapplicable. HOSPITAL COURSE - PART A: Reason for admission: The patient is a 27-year-old single white male with a history of autism spectrum disorder as well as oppositional defiant disorder growing up, who had 1 previous hospitalization for affective psychosis 2 years prior, who now returns to the hospital due to abrupt change in mental status over the last 3 weeks. Parents report that he had been increasingly socially isolated, not having much social outlet, and tending to stay to himself in his apartment in [place]. A few weeks prior to admission, he started demonstrating psychotic symptoms as manifested as seeing people around him as abnormal, believing that they were robots. On the evening prior to admission, he presented to the emergency room complaining of a few weeks of having strange thoughts such as people as beams of light from the stars and himself being a black hole, sucking people into him. He was hyperreligious and delusional. He denied hearing voices or having visual hallucinations, but he was observed to be staring at people and sometimes touching them to affirm whether or not they were robots. The patient had been increasingly agitated at home and it was felt that he warranted admission on an involuntary status given deficits in his capacity to make informed decisions. HOSPITAL COURSE - PART B: Psychiatric treatment rendered: The patient was admitted to the adult behavioral health unit and placed initially on q.15 minute checks for his own safety. He was initially treated by psychiatric nurse practitioner, Elizabeth Chase, who started him on a trial of olanzapine with somewhat limited success. At one point, there was an effort to switch to aripiprazole with thinking that he may benefit from the long-acting injectable version of this, which is not available with olanzapine. The patient's behavior appeared to worsen, and at that time, he was placed back on olanzapine. Unfortunately, the patient's treatment course was tenuous and fraught with frequent episodes of agitation and assaultive behavior towards both staff and peers. At times, he would even attack the unit's vitals machine. His care was then taken over by Dr. Pal Cox on 05/16/18. At that time, we opted for an increase in his olanzapine dose. I also started him on a trial of lithium for mood stabilization and fluoxetine for better control of his obsessive thought patterns. He was also treated with a 0.5 mg twice daily of clonazepam for anxiety and he could use hydroxyzine for breakthrough anxiety at his request. The patient does have a history of Crohn disease and we received consultation by Dr. Jerry Oswald. The patient was due for his q.8 week dose of Remicade, which was successfully administered on 05/25/18. At one point, Ishaan insisted on leaving and took the hospital to court for retention on 05/27/18; however, the hospital easily won this case after Ishaan was unable to even show up for the court proceedings. Gradually as his medications took hold, however, his mood, which was initially both manic and depressed, morphed into a more standard bipolar depression and from there dissipated into a general dysthymia with anxiety. He stopped being assaultive to peers. He stopped making odd bizarre claims. His mentation became much more future oriented and we were able to have a series of family meetings with both his mother and father who were involved with his care throughout. Ultimately, we felt that residential treatment would be a good option for him, but Ishaan wanted to wait until he could get more psychiatrically stable before making a decision about this. He was specifically referred to the [facility] and [facility] programs and his family will be looking into these. For the meantime though, we felt that the intensive outpatient program at [facility] called [facility] would be the best option. We were able to get him an intake appointment scheduled for 06/07/18. At this time, we are having no further behavioral problems with Ishaan. He is going to groups, doing yoga, is being more social with peers, is enjoying his outside breaks. His parents are agreeable with discharge. It is notable that just previous to discharge, they found a firearm in a locked case under his house, which Ishaan is insisting is a legally owned weapon. We encouraged his parents to remove it from his apartment and to hand it [facility] to [facility]. We also reported Ishaan using the [place]'s SAFE Act to prevent him from buying firearms in the future. At this time, we feel that there are no barriers to Ishaan receiving definitive care in the outpatient setting, and we certainly wish him the best for safe, healthy future. I should note that routine MRI of his brain as well as EEG were within normal limits and his lithium level was therapeutic at 0.71 prior to discharge. [id number]/[facility] #: [id number] MIKE
== END 2018-06-02 17:36 | disposition home or self-care (01) | DRG 885 ==
LOC: ED 18:45 → BSU 05-01 03:20
PROVIDERS: ADMIT Psychiatry & Neurology Psychiatry; ATTEND Psychiatry & Neurology Psychiatry
PROC: GZHZZZZ Group Psychotherapy (ICD-10-PCS; 2018-05-06)
PROC: 4A00X4Z Measurement of Central Nervous Electrical Activity, External Approach (ICD-10-PCS; principal; 2018-05-31)
DX: F31.64 Bipolar disorder, current episode mixed, severe, with psychotic features (principal); K50.90 Crohn's disease, unspecified, without complications; J30.1 Allergic rhinitis due to pollen; F41.9 Anxiety disorder, unspecified; F84.0 Autistic disorder; F34.1 Dysthymic disorder; F91.3 Oppositional defiant disorder; R45.1 Restlessness and agitation; Z72.89 Other problems related to lifestyle; Z91.013 Allergy to seafood; Z81.8 Family history of other mental and behavioral disorders; Z83.49 Family history of other endocrine, nutritional and metabolic diseases; Z56.0 Unemployment, unspecified; Z78.1 Physical restraint status; Z91.14 Patient's other noncompliance with medication regimen
CPT/HCPCS: 36415; 70450; 70551; 80048; 80053; 80061; 80178; 80307; 80320; 80329; 81003; 82150; 82270; 82390; 82525; 82607; 82746; 83036; 83630; 83690; 84443; 84630; 85025; 86140; 90847; 90853; 95819; 99222; 99231; 99232; 99233; 99238; 99285; A9270-GY; G0480; J1630; J2060; J2920; Q5103

== ENCOUNTER 2019-04-24 09:44 | Inpatient (IN) | payer BC, OTHER ==
--- NOTE | 2019-04-24 10:12 | ED ---
Psychiatric Complaint - HPI Summary HPI Summary: The patient is a 28 y/o M brought in by police to [facility] as 945 with a cc of family request for MHE with concerns for paranoia and bizarre behaviors this morning. The patients parents called the crisis team this morning as they observed the patient to be mentally unwell. The parents note that the patient has shown up on the spectrum of schizoaffective disorder and bipolar disorder, and his current state is different than his baseline, which warranted his visit today. Per triage, the patient states everything is going so fast and too much is happening. He c/o feeling feverish, per staff, but is otherwise asymptomatic at this point, although he is withdrawn and not speaking at time of initial encounter. Unable to further assess status of suicidal or homicidal ideation. PMHx: major depressive disorder, Crohns disease. Nonsmoker, occasional EtOH, no substance use. Medications reviewed. Allergies noted. Level 5 Caveat as patient is nonverbal at this time. History obtained from family, medical records, and triage. - History Of Current Complaint Chief Complaint: EDMentalHealth Time Seen by Provider: 04/24/19 09:55 Hx Obtained From: Family/[employer]otive [employer], Medical Records, Other: - triage Hx From Patient Unobtainable Due To: Other - Level 5 Caveat as patient is nonverbal at this time. Onset/Duration: Still Present Timing: Constant Severity Initially: Severe Severity Currently: Moderate Alleviating Factor(s): Nothing Associated Signs And Symptoms: Positive: Paranoid Behavior Related History: Positive For: Prior Psychiatric Issues - major depressive disorder - Allergies/Home Medications Allergies/Adverse Reactions: Allergies Allergy/AdvReac Type Severity Reaction Status Date / Time pollen extracts Allergy Congestion Verified 05/01/18 04:02 shrimp Allergy Hives Verified 05/01/18 15:45 Home Medications: Home Medications Fluticasone NASAL SPRAY 50MCG* [Flonase NASAL SPRAY 50MCG*] 2 spray BOTH NARES DAILY 04/24/19 [History Confirmed 04/24/19] PMH/Surg Hx/FS Hx/Imm Hx Endocrine/Hematology History: Denies: Hx Diabetes Cardiovascular History: Denies: Hx Hypertension, Hx Pacemaker/ICD GI History: Reports: Hx Crohn's Disease Musculoskeletal History: Denies: Hx Rheumatoid Arthritis, Hx Osteoporosis Sensory History: Denies: Hx Contacts or Glasses, Hx Hearing Aid Opthamlomology History: Denies: Hx Contacts or Glasses Psychiatric History: Reports: Hx Depression Denies: Hx Eating Disorder, Hx Panic Disorder, Hx of Violent Episodes Against Others - Surgical History Surgical History: None Surgery Procedure, Year, and Place: none Infectious Disease History: No Infectious Disease History: Denies: Traveled Outside the [place] in Last 30 Days - Family History Known Family History: Positive: Other - crohns - Social History Alcohol Use: Occasionally Alcohol Amount: unknown Hx Substance Use: No Substance Use Type: Reports: None Hx Tobacco Use: No Smoking Status (MU): Never Smoked Tobacco Review of Systems Positive: Fever Positive: Other - paranoia and bizarre behaviors per family, withdrawn All Other Systems Reviewed And Are Negative: No - Comments Additional Review of Systems Comments: Level 5 Caveat as patient is nonverbal at this time. Physical Exam - Summary Physical Exam Summary: General: Well appearing, no distress HEENT: PERRL Cardiovascular: Skin is well perfused Pulmonary: No respiratory distress, no tachypnea Abdomen: Non-distended Skin: Warm, pink, dry MSK: No edema Psych: Withdrawn Neuro: Alert, Unable to assess status of orientation as patient is not speaking at this time Triage Information Reviewed: Yes Vital Signs On Initial Exam: Initial Vitals Temp Pulse Resp BP Pulse Ox 99.6 F 95 19 128/87 100 04/24/19 09:48 04/24/19 09:48 04/24/19 09:48 04/24/19 09:48 04/24/19 09:48 Vital Signs Reviewed: Yes Completion Of Physical Exam Limited Due To: Level 5 - patient is nonverbal at this time Procedures - Sedation Patient Received Moderate/Deep Sedation with Procedure: No Diagnostics - Vital Signs Vital Signs Temp Pulse Resp BP Pulse Ox 04/24/19 09:48 99.6 F 95 19 128/87 100 - Laboratory Result Diagrams: 04/24/19 10:59 04/24/19 10:59 Lab Statement: Any lab studies that have been ordered have been reviewed, and results considered in the medical decision making process. Re-Evaluation - Re-Evaluation First Eval Re-Evaluation Time: 10:05 Comment: Patient is medically clear for MHE. Second Eval Re-Evaluation Time: 11:30 Comment: I spoke with the patient's parents concerning the plan for treatment and admission. They are agreeable with the plan. Course/Dx - Course Course Of Treatment: 28 y/o male w hx prior psychotic episodes, MDD p/w paranoia. - VSS NAD. Patient declining to participate in exam. Talking with felipe Plunkett at bedside. - labs WNL. Cleared for MHE. Parents at bedside - Differential Dx/Clinical Impression Provider Diagnosis: Depressive disorder - Physician Notifications Discussed Care Of Patient With: Pal Cox - psychiatry Time Discussed With Above Provider: 10:30 Instructed by Provider To: Other - Dr. Cox and mental health staff have evaluated the patient's case and have determined the patient to be appropriate for admission to the [facility] psychiatric unit at this time. Discharge ED - Sign-Out/Discharge Documenting (check all that apply): Patient Departure - Patient admitted to [facility] psychiatric unit by Dr. Cox. - Discharge Plan Condition: Stable Disposition: PSYCHIATRIC FACILITY-[facility] Referrals: Freddy Hussein, [employer] [employer] [Primary Care Provider] - - Billing Disposition and Condition Condition: STABLE Disposition: Psychiatric Facility [facility] - Attestation Statements Document Initiated by Scribe: Yes Documenting Scribe: Jo-Ann Priest Provider For Whom Jose Luis is Documenting (Include Credential): Dr. Good Lu MD Scribe Attestation: Jo-Ann Granda scribed for Dr. Good Lu MD on 04/24/19 at 1211. Scribe Documentation Reviewed: Yes Provider Attestation: The documentation as recorded by the Jo-Ann hsieh accurately reflects the service I personally performed and the decisions made by me, Dr. Good Lu MD Status of Scribe Document: Viewed
[2019-04-24 11:08] LABS: ABS Eosinophils 0.1 10^3/ul (0-0.6); ABS Lymphocytes 0.8 10^3/ul (1.0-4.8); ABS Monocytes 0.7 10^3/ul (0-0.8); ABS Neutrophils 6.5 10^3/ul (1.5-7.7); Eosinophil % 1.4 %; Hematocrit 46 % (42-52); Hemoglobin 15.8 g/dL (14.0-18.0); Lymphocyte % 10.3 %; Mean Corpuscular HGB Conc 35 g/dL (31-36); Mean Corpuscular Hemoglobin 32 pg (27-31); Mean Corpuscular Volume 93 fL (80-94); Mean Platelet Volume 6.9 fL (7.4-10.4); Platelet Count 305 10^3/uL (150-450); Red Blood Count 4.93 10^6 /uL (4.18-5.48); Red Cell Distribution Width 13 % (10-15); White Blood Count 8.2 10^3/uL (3.5-10.8)
[2019-04-24] MEDS ORDERED: Al Hydrox/Mg Hydrox/Simet LIQ* 30 ML UDC PO PRN (11:15)
[2019-04-24] MEDS ORDERED: chlorproMAZINE TAB* 100 MG PO PRN (11:17)
[2019-04-24 11:27] LABS: ALT 19 U/L (7-52); AST 21 U/L (13-39); Albumin 4.8 g/dL (3.2-5.2); Albumin/Globulin Ratio 1.6 (1-3); Alkaline Phosphatase 64 U/L (34-104); Anion Gap 8 mmol/L (2-11); BUN/Creatinine Ratio 17.9 (8-20); Blood Urea Nitrogen 17 mg/dL (6-24); CO2 Carbon Dioxide 26 mmol/L (22-32); Calcium 9.8 mg/dL (8.6-10.3); Chloride 101 mmol/L (101-111); EGFR Non-African American 95.8 (>60); Glucose 93 mg/dL (70-100); Potassium 3.9 mmol/L (3.5-5.0); Sodium 135 mmol/L (135-145); Total Protein 7.8 g/dL (6.4-8.9)
[2019-04-24 11:47] LABS: Acetaminophen < 15 mcg/mL; Alcohol < 10 mg/dL (<10); Salicylate < 2.50 mg/dL (<30)
[2019-04-24] MEDS ORDERED: FLUoxetine CAP* 20 MG PO SCH (12:00)
[2019-04-24 12:01] LABS: TSH (Thyroid Stimulating Horm) 1.75 mcIU/mL (0.34-5.60)
[2019-04-24] MEDS ORDERED: OLANzapine TAB*ODT* 10 MG TAB ONE (16:35)
[2019-04-24] MEDS: Levothyroxine TAB* 25 MCG TAB PO SCH (17:14)
[2019-04-24] MEDS: OLANzapine TAB* 10 MG PO SCH ×2 (17:14→21:10)
[2019-04-24] MEDS: Lithium Carbonate TAB* 300 MG PO SCH ×2 (17:14→21:09)
[2019-04-24] MEDS: Cetirizine* 10 MG TAB PO SCH (17:14)
[2019-04-25 08:36] LABS: HDL Cholesterol 77.5 mg/dL
[2019-04-25] MEDS: OLANzapine TAB* 10 MG PO SCH ×2 (10:31→22:59)
[2019-04-25] MEDS: Lithium Carbonate TAB* 300 MG PO SCH ×2 (10:31→22:59)
[2019-04-25] MEDS: Cetirizine* 10 MG TAB PO SCH (10:31)
[2019-04-25] MEDS: Levothyroxine TAB* 25 MCG TAB PO SCH (10:31)
[2019-04-25] MEDS: FLUoxetine CAP* 20 MG PO SCH (10:31)
[2019-04-25] MEDS: Fluticasone NASAL SPRAY 50MCG* 16 gm SPRAY BTL BOTH NARES SCH (10:31)
--- NOTE | 2019-04-25 12:35 | HP ---
PSYCHIATRIC HISTORY AND PHYSICAL: DATE OF ADMISSION: 04/24/19 JUSTIFICATION FOR ADMISSION: The patient is not eating or drinking, is severely manic, paranoid and psychotic and unable to care for himself in a less restrictive setting. CHIEF COMPLAINT: "I don't want to be here." HISTORY OF PRESENT ILLNESS: The patient is a 28-year-old single white male with a history of autism spectrum disorder as well as bipolar disorder, who was brought in by the mobile crisis team after his parents called them with a concern that he has been increasingly agitated, disorganized, and paranoi d. Because of his presentation, the mobile crisis team had to call police authorities, they found a knife on Ishaan and disarmed him and brought him to the ED where he presented as catatonic at times, o ther times distractible, disorganized, clearly paranoid and fearful. His parents report that he had been doing quite well since his most recent discharge in May 2018. At that time, he was able to we an off of olanzapine secondary to significant sedation and was receiving lithium and fluoxetine as pr escribed by psychiatric nurse practitioner, Claudia Alvarez, in the community. He is also being seen fo r weekly psychotherapy with bilingual social worker- therapist, Melissa Gibbs. 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 They first became suspicious 1 week ago when he stated that he was feeling slightly paranoid. They encouraged him to continue with his medications and follow up with Claudia Alvarez, which he did 1 week ago. She noted that he was paranoid and attempted to start him on low-dose Risperdal as well a s increase his lithium dose; however, the patient declined to adhere to either of these recommendatio ns. At this time, he is neither eating nor drinking, will only sit in bed, responding minimally. He does make it clear that he does not want to be hospitalized, but given his past history of violence during psychotic ricky, we feel that that level of care is necessary. PAST PSYCHIATRIC HISTORY: The patient had a prolonged hospitalization from April to May 2018 at which time he was stabilized on a combination of fluoxetine, lithium, and olanzapine. Most recently , he has been on hydroxyzine, lithium, and fluoxetine as prescribed by psychiatric nurse practitioner , Claudia Alvarez. He attends weekly therapy with Melissa Gibbs LMSW. He has had psychiatric hospitaliz ations in the past at [facility] in [place] under similar circumstances. SUBSTANCE ABUSE HISTORY: Unremarkable. PAST MEDICAL HISTORY: Significant for a diagnosis of Crohn's disease for which he takes IV Remicade every 8 weeks. He just had his most recent infusion 1 week ago. CURRENT MEDICATIONS: 1. He takes lithium 750 mg p.o. daily. 2. Fluoxetine 20 mg p.o. daily. 3. Zyrtec 10 mg p.o. daily. 4. Remicade IV q.8 weeks. 5. Synthroid 50 mg p.o. q.a.m. ALLERGIES: He is allergic to ARIPIPRAZOLE, BEE POLLEN, and SHRIMP. FAMILY HISTORY: Remarkable for his mother having an anxiety issue. SOCIAL HISTORY: The patient is from the [place] area and his parents live locally. He was able to ach ieve a bachelor's degree in chemistry and had been pursuing a graduate degree at the [employer], but because of strong political views, had been asked to leave without finishing his graduat e degree. 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 He s hares an apartment here locally with a roommate. He has never been and has no children. REVIEW OF SYSTEMS: The patient is denying headache or double vision. He denies sore throat, cough, chest pain, difficulty breathing. He denies abdominal pain, nausea, vomiting, diarrhea, or constipat ion. He denies difficulty ambulating, enlarged lymph nodes, fevers, changes in weight. PHYSICAL EXAMINATION VITAL SIGNS: Blood pressure 124/77, heart rate 86, respiratory rate 14, temperature 99.1 degrees Fah renheit, oxygen saturations are 100% on room air. HEENT: Head is normocephalic, atraumatic. NECK: Supple. CHEST: Clear to auscultation bilaterally. CARDIAC: Exam reveals normal heart sounds. ABDOMEN: Soft and nontender. MUSCULOSKELETAL: Exam reveals no sign of edema. NEUROLOGICAL: He is grossly intact with no focal deficits. SKIN: Warm and dry. DIAGNOSTIC STUDIES/LAB DATA: His CBC is within normal limits as his complete metabolic panel. TSH normal at 1.75. MENTAL STATUS EXAM: The patient is a tall, slender white male with brownish hair, who is lying down in bed, making minimal eye contact. His speech shows long latencies and paucity of speech production . Mood would appear to be anxious with a blunted affect. Thought process is disorganized with thoug ht blocking. Thought content is significant for his desire to be released from the hospital. He is denying suicidal or homicidal ideations. He denies auditory or visual hallucinations, but does appea r to be responding to internal stimuli at times. He is clearly paranoid. Insight and judgment are p oor given his lack of self-care. Cognitively, he is awake and alert, but not interactive. DIAGNOSES: [place] I: Bipolar disorder, manic, severe with psychotic features; autism spectrum disorder by history. [place] II: Deferred. IMPRESSION: The patient is a 28-year-old single white male with a history of autism spectrum disorde r and bipolar disorder, who has a strong history of becoming symptomatic in the late winter, who now returns having been brought in by the mobile crisis team due to several days of disorganized thinking , paranoia, carrying a knife. We feel that he meets criteria for involuntary hospitalization as he i s neither eating nor drinking and is clearly unable to care for himself in a less restrictive setting . PLAN: The patient is admitted to the adult behavioral health unit, where he is placed on q.15 minute checks for his own safety. We will resume fluoxetine and lithium therapies at the dose of 20 mg and 600 mg b.i.d. respectively. We will also resume olanzapine at 10 mg twice daily and if he is catato robinson, we will have to give the olanzapine through injections. While he is here, he is certainly encou raged to avail himself of all milieu activities. We will be reaching out to his psychiatric nurse pr actitioner as well as his psychotherapist in the community to include them in treatment planning. [id number]/[facility] #: [id number]
[2019-04-25] MEDS ORDERED: LORazepam TAB(*) 1 MG ONE (13:50)
[2019-04-25] MEDS ORDERED: LORazepam INJ* 2 MG/ML 1 ML VIAL ONE (13:58)
[2019-04-26] MEDS: FLUoxetine CAP* 20 MG PO SCH (10:21)
[2019-04-26] MEDS: Cetirizine* 10 MG TAB PO SCH (10:21)
[2019-04-26] MEDS: Lithium Carbonate TAB* 300 MG PO SCH ×2 (10:21→22:12)
[2019-04-26] MEDS: Levothyroxine TAB* 25 MCG TAB PO SCH (10:21)
[2019-04-26] MEDS: OLANzapine TAB* 10 MG PO SCH ×2 (10:22→22:12)
[2019-04-26] MEDS: Fluticasone NASAL SPRAY 50MCG* 16 gm SPRAY BTL BOTH NARES SCH (10:22)
--- NOTE | 2019-04-26 11:47 | PN ---
Subjective - Subjective Date of Service: 04/26/19 Service Type: 94209 Hosp care 15 min low complexity Subjective: Ishaan became arousable this morning and ate his breakfast and took his medications as directed. He is still somewhat withdrawn but does briefly respond to questions and acknowledges that "April is just not my month." He denies SI or HI but still seems distractable and somewhat illogical. Objective - General Observations Appearance: Unkempt Appears Stated Age: Yes Stature: Thin Posture: Slumped Eye Contact: Avoidant Behavior/Activity: Slowed - Interaction Observations Attitude Towards Examiner: Cooperative Stated Mood: Dysphoric Affect: Blunted Speech Pattern/Tone: Delayed, Quiet Volume Thought Process: Disorganized Thought Content: Paranoid Thought Process: Lethality: Paranoid Ideation Hallucination Type: None Delusion Type: Persecution - Cognitive Function Orientation: A&O x 4 Level of Consciousness: Awake Cognition: WNL Estimated Intelligence: Normal Insight: WNL Judgment Within Normal Limits: Yes - Medication Compliance Cooperative with Inpatient Medication Regimen: Partial - Group Participation Participates in Group Activities: No Assessment - Assessment Merits Inpatient Hospitalization: For Immediate Safety, For Stabilization Inpatient DSM-V Dx: F31.64 Clinical Impression: 28 y.o. single, white male with a history of autism spectrum and bipolar disorders arrives via police and the mobile crisis team after his parents called for help when he was displaying disorganized, paranoid behavior and not attending to ADLs. BSU: Problem List - Patient Problems (1) Bipolar affective, mixed, sev w/ psych Current Visit: No Status: Acute Priority: High Code(s): F31.64 - BIPOLAR DISORD, CRNT EPISODE MIXED, SEVERE, W PSYCH FEATURES SNOMED Code(s): 062298669 Plan - Plan Treatment Plan: Name: ISHAAN PARKINSON Birthdate: 1990 [id number] The patient's outpatient regimen of fluoxetine 20mg PO qday and lithium 600mg PO BID have been resumed. We have also added olanzapine 10mg PO BID. He's showing some improvement so far this morning and we will continue to monitor closely. Continued Medication Management: Start Medication Medications: Current Medications Acetaminophen (Tylenol Tab*) 650 mg PO Q4H PRN PRN Reason: for pain; or Temp >101 F Al Hydrox/Mg Hydrox/Simethicone (Maalox Plus*) 30 ml PO Q4H PRN PRN Reason: INDIGESTION Cetirizine HCl (Zyrtec*) 10 mg PO DAILY [facility] Last Admin: 04/26/19 10:21 Dose: 10 mg Chlorpromazine HCl (Thorazine Tab*) 100 mg PO Q6H PRN PRN Reason: AGITATION Fluoxetine HCl (Prozac Cap*) 20 mg PO DAILY [facility] Last Admin: 04/26/19 10:21 Dose: 20 mg Fluticasone Propionate (Flonase Nasal [place] 50mcg*) 2 spray BOTH NARES DAILY [facility] Last Admin: 04/26/19 10:22 Dose: Not Given Hydroxyzine HCl (Atarax Tab*) 50 mg PO Q6H PRN PRN Reason: anxiety Levothyroxine Sodium (Synthroid Tab*) 50 mcg PO QAM@0600 [facility] Last Admin: 04/26/19 10:21 Dose: 50 mcg [place] Carbonate ([place] Carbonate Tab*) 600 mg PO BID [facility] Last Admin: 04/26/19 10:21 Dose: 600 mg Olanzapine (Zyprexa Tab*) 10 mg PO BID [facility] Last Admin: 04/26/19 10:22 Dose: 10 mg Olanzapine (Zyprexa Im (Nf)) 10 mg IM BID PRN; Protocol PRN Reason: catatonia Last Admin: 04/25/19 22:54 Dose: 10 mg - Discharge Plan Discharge Plan: Inpatient Hospitalization Lab Results - Lab Results Lab Results: 04/24/19 04/24/19 04/25/19 10:59 10:59 07:50 WBC 8.2 RBC 4.93 Hgb 15.8 Hct 46 MCV 93 MCH 32 H MCHC 35 RDW 13 Plt Count 305 MPV 6.9 L Neut % (Auto) 79.8 Lymph % (Auto) 10.3 [place] % (Auto) 8.0 Eos % (Auto) 1.4 Baso % (Auto) 0.5 Absolute Neuts (auto) 6.5 Absolute Lymphs (auto) 0.8 L Absolute Monos (auto) 0.7 Absolute Eos (auto) 0.1 Absolute Basos (auto) 0.0 Absolute Nucleated RBC 0.0 Nucleated RBC % 0.0 Sodium 135 Potassium 3.9 Chloride 101 Carbon Dioxide 26 Anion Gap 8 BUN 17 Creatinine 0.95 Est GFR ( Amer) 116.0 Est GFR (Non-Af Amer) 95.8 BUN/Creatinine Ratio 17.9 Glucose 93 Hemoglobin A1c Calcium 9.8 Total Bilirubin 1.10 H AST 21 ALT 19 Alkaline Phosphatase 64 Total Protein 7.8 Albumin 4.8 Globulin 3.0 Albumin/Globulin Ratio 1.6 Triglycerides 76 Cholesterol 154 LDL Cholesterol 61 HDL Cholesterol 77.5 TSH 1.75 Salicylates < 2.50 Acetaminophen < 15 Serum Alcohol < 10 04/25/19 07:50 WBC RBC Hgb Hct MCV MCH MCHC RDW Plt Count MPV Neut % (Auto) Lymph % (Auto) [place] % (Auto) Eos % (Auto) Baso % (Auto) Absolute Neuts (auto) Absolute Lymphs (auto) Absolute Monos (auto) Absolute Eos (auto) Absolute Basos (auto) Absolute Nucleated RBC Nucleated RBC % Sodium Potassium Chloride Carbon Dioxide Anion Gap BUN Creatinine Est GFR ( Amer) Est GFR (Non-Af Amer) BUN/Creatinine Ratio Glucose Hemoglobin A1c 4.6 Calcium Total Bilirubin AST ALT Alkaline Phosphatase Total Protein Albumin Globulin Albumin/Globulin Ratio Triglycerides Cholesterol LDL Cholesterol HDL Cholesterol TSH Salicylates Acetaminophen Serum Alcohol
[2019-04-27] MEDS: FLUoxetine CAP* 20 MG PO SCH (09:08)
[2019-04-27] MEDS: OLANzapine TAB* 10 MG PO SCH ×2 (09:08→19:59)
[2019-04-27] MEDS: Cetirizine* 10 MG TAB PO SCH (09:08)
[2019-04-27] MEDS: Lithium Carbonate TAB* 300 MG PO SCH ×2 (09:09→19:59)
[2019-04-27] MEDS: Levothyroxine TAB* 25 MCG TAB PO SCH (09:10)
[2019-04-27] MEDS: Fluticasone NASAL SPRAY 50MCG* 16 gm SPRAY BTL BOTH NARES SCH (09:10)
--- NOTE | 2019-04-27 10:35 | PN ---
Subjective - Subjective Date of Service: 04/27/19 Service Type: 39072 Hosp care 15 min low complexity Subjective: Ishaan is met in his room where he is sitting up in bed, having just finished a tray of breakfast. He was able to take his PO medications this morning after missing them last night and receiving a shot of olanzapine IM. He still has significant speech latencies and thought blocking on exam but denies SI or HI. He doesn't make much eye contact. Objective - General Observations Appearance: Disheveled, Unkempt Appears Stated Age: Yes Stature: Thin Posture: Slumped Eye Contact: Avoidant Behavior/Activity: Slowed - Interaction Observations Attitude Towards Examiner: Evasive Stated Mood: Dysphoric Affect: Blunted Speech Pattern/Tone: Delayed, Quiet Volume Thought Process: Disorganized Thought Content: Paranoid Thought Process: Lethality: Paranoid Ideation Hallucination Type: None Delusion Type: Persecution - Cognitive Function Orientation: A&O x 4 Level of Consciousness: Awake Cognition: WNL Estimated Intelligence: Normal Insight: WNL Judgment Within Normal Limits: Yes - Medication Compliance Cooperative with Inpatient Medication Regimen: Partial - Group Participation Participates in Group Activities: No Assessment - Assessment Merits Inpatient Hospitalization: For Immediate Safety, For Stabilization Inpatient DSM-V Dx: F31.64 Clinical Impression: 28 y.o. single, white male with a history of autism spectrum and bipolar disorders arrives via police and the mobile crisis team after his parents called for help when he was displaying disorganized, paranoid behavior and not attending to ADLs. BSU: Problem List - Patient Problems (1) Bipolar affective, mixed, sev w/ psych Current Visit: No Status: Acute Priority: High Code(s): F31.64 - BIPOLAR DISORD, CRNT EPISODE MIXED, SEVERE, W PSYCH FEATURES SNOMED Code(s): 472209322 Plan - Plan Treatment Plan: Name: ISHAAN PARKINSON Birthdate: 1990 [id number] The patient's outpatient regimen of fluoxetine 20mg PO qday and lithium 600mg PO BID have been resumed. We have also added olanzapine 10mg PO BID. He's tending to do better in the mornings and needs further inpatient care. Continued Medication Management: Different Medication Medications: Current Medications Acetaminophen (Tylenol Tab*) 650 mg PO Q4H PRN PRN Reason: for pain; or Temp >101 F Al Hydrox/Mg Hydrox/Simethicone (Maalox Plus*) 30 ml PO Q4H PRN PRN Reason: INDIGESTION Cetirizine HCl (Zyrtec*) 10 mg PO DAILY [facility] Last Admin: 04/27/19 09:08 Dose: 10 mg Chlorpromazine HCl (Thorazine Tab*) 100 mg PO Q6H PRN PRN Reason: AGITATION Fluoxetine HCl (Prozac Cap*) 20 mg PO DAILY [facility] Last Admin: 04/27/19 09:08 Dose: 20 mg Fluticasone Propionate (Flonase Nasal [place] 50mcg*) 2 spray BOTH NARES DAILY [facility] Last Admin: 04/27/19 09:10 Dose: Not Given Hydroxyzine HCl (Atarax Tab*) 50 mg PO Q6H PRN PRN Reason: anxiety Levothyroxine Sodium (Synthroid Tab*) 50 mcg PO QAM@0600 [facility] Last Admin: 04/27/19 09:10 Dose: 50 mcg [place] Carbonate (Impact Carbonate Tab*) 600 mg PO BID [facility] Last Admin: 04/27/19 09:09 Dose: 600 mg Olanzapine (Zyprexa Tab*) 10 mg PO BID [facility] Last Admin: 04/27/19 09:08 Dose: 10 mg Olanzapine (Zyprexa Im (Nf)) 10 mg IM BID PRN; Protocol PRN Reason: catatonia Last Admin: 04/26/19 21:59 Dose: 10 mg - Discharge Plan Discharge Plan: Inpatient Hospitalization
[2019-04-28] MEDS: Levothyroxine TAB* 25 MCG TAB PO SCH ×2 (10:44→10:54)
[2019-04-28] MEDS: Lithium Carbonate TAB* 300 MG PO SCH ×3 (10:44→21:48)
[2019-04-28] MEDS: FLUoxetine CAP* 20 MG PO SCH ×2 (10:44→10:53)
[2019-04-28] MEDS: OLANzapine TAB* 10 MG PO SCH ×3 (10:44→21:48)
[2019-04-28] MEDS: Cetirizine* 10 MG TAB PO SCH ×2 (10:45→10:53)
[2019-04-28] MEDS: Fluticasone NASAL SPRAY 50MCG* 16 gm SPRAY BTL BOTH NARES SCH (10:53)
--- NOTE | 2019-04-28 12:02 | PN ---
Subjective - Subjective Date of Service: 04/28/19 Service Type: [id number] Hosp care 15 min low complexity Subjective: Ishaan remains severely withdrawn and isolating in his room. He took his medication last night only with much encouragement from numerous staff. This morning, however, he refused it and would not interact much with his assigned nurse. I went to see him at around 10:30 AM and again offered PO meds as scheduled. He would not open his eyes or make any statement whatsoever. After some time he was given olanzapine 10mg IM, which he did not resist, wincing somewhat in discomfort when it was administered in his left buttock. He hasn't eaten or drank anything yet today. I spoke with his mother, Maddy, this morning and appraised her of his condition. I understand that he indicated last night that he no longer wants visitation from his parents but he would make no comment about this today. Objective - General Observations Appearance: Disheveled Appears Stated Age: Yes Stature: Thin Posture: Slumped Eye Contact: Avoidant - Interaction Observations Attitude Towards Examiner: Uncooperative Stated Mood: Dysphoric Affect: Blunted Speech Pattern/Tone: Delayed Thought Process: Disorganized Thought Content: Paranoid Thought Process: Lethality: Paranoid Ideation Delusion Type: Persecution - Cognitive Function Orientation: A&O x 4 Level of Consciousness: Responds to Pain Cognition: WNL Estimated Intelligence: Normal Insight: WNL Judgment Within Normal Limits: Yes - Medication Compliance Cooperative with Inpatient Medication Regimen: Partial - Group Participation Participates in Group Activities: No Assessment - Assessment Merits Inpatient Hospitalization: For Immediate Safety, For Stabilization Inpatient DSM-V Dx: F31.64 Clinical Impression: 28 y.o. single, white male with a history of autism spectrum and bipolar disorders arrives via police and the mobile crisis team after his parents called for help when he was displaying disorganized, paranoid behavior and not attending to ADLs. BSU: Problem List - Patient Problems (1) Bipolar affective, mixed, sev w/ psych Current Visit: No Status: Acute Priority: High Code(s): F31.64 - BIPOLAR DISORD, CRNT EPISODE MIXED, SEVERE, W PSYCH FEATURES SNOMED Code(s): 794034725 Plan - Plan Treatment Plan: Name: ISHAAN PARKINSON Birthdate: 1990 [id number] The patient's outpatient regimen of fluoxetine 20mg PO qday and lithium 600mg PO BID have been resumed. We have also added olanzapine 10mg PO BID. Because of continued catatonic symptoms we are offering PO meds and administering olanzapine 10mg IM BID as a prn when he refuses. He requires further inpatient care. Continued Medication Management: Continue Outpt Medication Medications: Current Medications Acetaminophen (Tylenol Tab*) 650 mg PO Q4H PRN PRN Reason: for pain; or Temp >101 F Al Hydrox/Mg Hydrox/Simethicone (Maalox Plus*) 30 ml PO Q4H PRN PRN Reason: INDIGESTION Cetirizine HCl (Zyrtec*) 10 mg PO DAILY [facility] Last Admin: 04/28/19 10:53 Dose: Not Given Chlorpromazine HCl (Thorazine Tab*) 100 mg PO Q6H PRN PRN Reason: AGITATION Fluoxetine HCl (Prozac Cap*) 20 mg PO DAILY [facility] Last Admin: 04/28/19 10:53 Dose: Not Given Fluticasone Propionate (Flonase Nasal [place] 50mcg*) 2 spray BOTH NARES DAILY [facility] Last Admin: 04/28/19 10:53 Dose: Not Given Hydroxyzine HCl (Atarax Tab*) 50 mg PO Q6H PRN PRN Reason: anxiety Levothyroxine Sodium (Synthroid Tab*) 50 mcg PO QAM@0600 [facility] Last Admin: 04/28/19 10:54 Dose: Not Given [place] Carbonate ([place] Carbonate Tab*) 600 mg PO BID [facility] Last Admin: 04/28/19 10:53 Dose: Not Given Olanzapine (Zyprexa Tab*) 10 mg PO BID [facility] Last Admin: 04/28/19 10:54 Dose: Not Given Olanzapine (Zyprexa Im (Nf)) 10 mg IM BID PRN; Protocol PRN Reason: catatonia Last Admin: 04/28/19 10:56 Dose: 10 mg - Discharge Plan Discharge Plan: Inpatient Hospitalization
[2019-04-29] MEDS: Cetirizine* 10 MG TAB PO SCH ×2 (08:21→09:39)
[2019-04-29] MEDS: Levothyroxine TAB* 25 MCG TAB PO SCH ×2 (08:21→09:40)
[2019-04-29] MEDS: Lithium Carbonate TAB* 300 MG PO SCH ×3 (08:22→21:04)
[2019-04-29] MEDS: OLANzapine TAB* 10 MG PO SCH ×3 (08:22→21:04)
[2019-04-29] MEDS: FLUoxetine CAP* 20 MG PO SCH ×2 (08:22→09:39)
[2019-04-29] MEDS: Fluticasone NASAL SPRAY 50MCG* 16 gm SPRAY BTL BOTH NARES SCH (08:22)
--- NOTE | 2019-04-29 14:35 | PN ---
Subjective - Subjective Date of Service: 04/29/19 Service Type: 36049 Hosp care 25 min moderate complexity Subjective: No change so far with Ishaan's mental status. When I went to see him with a staff he was standing by the wall not moving for a while or responding to us. Few moments later he sat down on the floor but responded minimally to all inquiries. Didn't make any eye contact. Per nursing reports he hasn't been eating, drinking or taking meds today. If he continues to exhibit this catatonic behaviors a TOO for meds plus ECT would be considered. Objective - General Observations Appearance: Disheveled Appears Stated Age: Yes Stature: Thin, Tall Posture: Tense Eye Contact: Avoidant Behavior/Activity: Stereotyped, Peculiar - Interaction Observations Attitude Towards Examiner: Uncooperative, Dismissive Stated Mood: Irritable Affect: Blunted Speech Pattern/Tone: Delayed, Quiet Volume Thought Process: Incoherent, Impoverished Thought Content: Preoccupation/Ruminations, Phobic Thought Process: Lethality: Paranoid Ideation - Cognitive Function Orientation: Confused Level of Consciousness: Awake, Alert Cognition: Impaired Cognition Estimated Intelligence: MR Range Insight: Difficulty Acknowledging Presence of Psyciatric Problems Judgment Within Normal Limits: No Ability to Make Reasonable Decisions: Serverely Impaired - Medication Compliance Cooperative with Inpatient Medication Regimen: No - Group Participation Participates in Group Activities: No Assessment - Assessment Merits Inpatient Hospitalization: For Immediate Safety, For Stabilization, To Initiate Treatment Inpatient DSM-V Dx: F31.64 Clinical Impression: 28 y.o. single, white male with a history of autism spectrum and bipolar disorders arrives via police and the mobile crisis team after his parents called for help when he was displaying disorganized, paranoid behavior and not attending to ADLs. 04/29/19 : No change from above. Plan - Plan Treatment Plan: Name: ISHAAN PARKINSON Birthdate: 1990 [id number] The patient's outpatient regimen of fluoxetine 20mg PO qday and lithium 600mg PO BID have been resumed. We have also added olanzapine 10mg PO BID. Because of continued catatonic symptoms we are offering PO meds and administering olanzapine 10mg IM BID as a prn when he refuses. He requires further inpatient care. Continued Medication Management: Consider Medication - Consider TOO/ECT Medications: Current Medications Acetaminophen (Tylenol Tab*) 650 mg PO Q4H PRN PRN Reason: for pain; or Temp >101 F Al Hydrox/Mg Hydrox/Simethicone (Maalox Plus*) 30 ml PO Q4H PRN PRN Reason: INDIGESTION Cetirizine HCl (Zyrtec*) 10 mg PO DAILY [facility] Last Admin: 04/29/19 09:39 Dose: 10 mg Chlorpromazine HCl (Thorazine Tab*) 100 mg PO Q6H PRN PRN Reason: AGITATION Fluoxetine HCl (Prozac Cap*) 20 mg PO DAILY [facility] Last Admin: 04/29/19 09:39 Dose: 20 mg Fluticasone Propionate (Flonase Nasal [place] 50mcg*) 2 spray BOTH NARES DAILY [facility] Last Admin: 04/29/19 08:22 Dose: Not Given Hydroxyzine HCl (Atarax Tab*) 50 mg PO Q6H PRN PRN Reason: anxiety Levothyroxine Sodium (Synthroid Tab*) 50 mcg PO QAM@0600 [facility] Last Admin: 04/29/19 09:40 Dose: 50 mcg [place] Carbonate ([place] Carbonate Tab*) 600 mg PO BID [facility] Last Admin: 04/29/19 09:39 Dose: 600 mg Olanzapine (Zyprexa Tab*) 10 mg PO BID [facility] Last Admin: 04/29/19 09:39 Dose: 10 mg Olanzapine (Zyprexa Im (Nf)) 10 mg IM BID PRN; Protocol PRN Reason: catatonia Last Admin: 04/28/19 20:31 Dose: 10 mg - Discharge Plan Discharge Plan: Outpatient [facility]
[2019-04-30] MEDS: Levothyroxine TAB* 25 MCG TAB PO SCH (07:01)
[2019-04-30] MEDS: Lithium Carbonate TAB* 300 MG PO SCH ×2 (10:03→21:55)
[2019-04-30] MEDS: OLANzapine TAB* 10 MG PO SCH ×2 (10:04→21:55)
[2019-04-30] MEDS: FLUoxetine CAP* 20 MG PO SCH (10:04)
[2019-04-30] MEDS: Cetirizine* 10 MG TAB PO SCH (10:04)
[2019-04-30] MEDS: Fluticasone NASAL SPRAY 50MCG* 16 gm SPRAY BTL BOTH NARES SCH (10:05)
[2019-05-01] MEDS: Levothyroxine TAB* 25 MCG TAB PO SCH (07:00)
[2019-05-01] MEDS: Lithium Carbonate TAB* 300 MG PO SCH ×2 (08:08→22:42)
[2019-05-01] MEDS: Cetirizine* 10 MG TAB PO SCH (08:08)
[2019-05-01] MEDS: FLUoxetine CAP* 20 MG PO SCH (08:09)
[2019-05-01] MEDS: OLANzapine TAB* 10 MG PO SCH (08:09)
[2019-05-01] MEDS: Fluticasone NASAL SPRAY 50MCG* 16 gm SPRAY BTL BOTH NARES SCH (08:10)
--- NOTE | 2019-05-01 10:38 | PN ---
Subjective - Subjective Date of Service: 05/01/19 Service Type: 23560 Hosp care 15 min low complexity Subjective: Ishaan is seen in his room where he is laying down with a blanket wrapped around his head, fully clothed. He reportedly had a fair weekend in that he was out of his room more frequently, eating, drinking and interacting some with others. He frequently needed multiple prompts to take his medications but always did so eventually. Today he is slightly more spontaneous. "My mom says I should switch from olanzapine to risperdal. Is that OK?" He notes that his outpatient nurse practitioner had originally suggested this but he was reluctant to resume any kind of antipsychotic because of cognitive side effects. He denies SI or HI. Objective - General Observations Appearance: Unkempt Appears Stated Age: Yes Stature: Thin Posture: Slumped Eye Contact: Avoidant - Interaction Observations Attitude Towards Examiner: Confused Stated Mood: Dysphoric Affect: Restricted Speech Pattern/Tone: Delayed Thought Process: Disorganized Thought Content: Paranoid Thought Process: Lethality: Paranoid Ideation Hallucination Type: None Delusion Type: Persecution - Cognitive Function Orientation: A&O x 4 Level of Consciousness: Lethargic Cognition: WNL Estimated Intelligence: Normal Insight: WNL Judgment Within Normal Limits: Yes - Medication Compliance Cooperative with Inpatient Medication Regimen: Yes - Group Participation Participates in Group Activities: No Assessment - Assessment Merits Inpatient Hospitalization: For Immediate Safety, For Stabilization Inpatient DSM-V Dx: F31.64 Clinical Impression: 28 y.o. single, white male with a history of autism spectrum and bipolar disorders arrives via police and the mobile crisis team after his parents called for help when he was displaying disorganized, paranoid behavior and not attending to ADLs. BSU: Problem List - Patient Problems (1) Bipolar affective, mixed, sev w/ psych Current Visit: No Status: Acute Priority: High Code(s): F31.64 - BIPOLAR DISORD, CRNT EPISODE MIXED, SEVERE, W PSYCH FEATURES SNOMED Code(s): 968371170 Plan - Plan Treatment Plan: Name: ISHAAN PARKINSON Birthdate: 1990 [id number] The patient's outpatient regimen of fluoxetine 20mg PO qday and lithium 600mg PO BID have been resumed. We have also added olanzapine 10mg PO BID. The patient is interested in switching to risperidone to see if there will be fewer side effects. Will d/c olanzapine and start risperidone 2mg PO BID. He requires further inpatient care. Continued Medication Management: Start Medication Medications: Current Medications Acetaminophen (Tylenol Tab*) 650 mg PO Q4H PRN PRN Reason: for pain; or Temp >101 F Al Hydrox/Mg Hydrox/Simethicone (Maalox Plus*) 30 ml PO Q4H PRN PRN Reason: INDIGESTION Cetirizine HCl (Zyrtec*) 10 mg PO DAILY [facility] Last Admin: 05/01/19 08:08 Dose: 10 mg Chlorpromazine HCl (Thorazine Tab*) 100 mg PO Q6H PRN PRN Reason: AGITATION Fluoxetine HCl (Prozac Cap*) 20 mg PO DAILY [facility] Last Admin: 05/01/19 08:09 Dose: 20 mg Fluticasone Propionate (Flonase Nasal [place] 50mcg*) 2 spray BOTH NARES DAILY [facility] Last Admin: 05/01/19 08:10 Dose: Not Given Hydroxyzine HCl (Atarax Tab*) 50 mg PO Q6H PRN PRN Reason: anxiety Levothyroxine Sodium (Synthroid Tab*) 50 mcg PO QAM@0600 [facility] Last Admin: 05/01/19 07:00 Dose: 50 mcg [place] Carbonate ([place] Carbonate Tab*) 600 mg PO BID [facility] Last Admin: 05/01/19 08:08 Dose: 600 mg Risperidone (Risperdal*) 2 mg PO BID [facility] - Discharge Plan Discharge Plan: Inpatient Hospitalization
[2019-05-01] MEDS: risperiDONE TAB* 2 MG PO SCH (22:42)
[2019-05-02] MEDS: Cetirizine* 10 MG TAB PO SCH (15:29)
[2019-05-02] MEDS: Levothyroxine TAB* 25 MCG TAB PO SCH (15:29)
[2019-05-02] MEDS: FLUoxetine CAP* 20 MG PO SCH (15:29)
[2019-05-02] MEDS: risperiDONE TAB* 2 MG PO SCH ×2 (15:30→20:37)
[2019-05-02] MEDS: Lithium Carbonate TAB* 300 MG PO SCH ×2 (15:30→20:37)
[2019-05-02] MEDS: Fluticasone NASAL SPRAY 50MCG* 16 gm SPRAY BTL BOTH NARES SCH (15:30)
[2019-05-02] MEDS: Acetaminophen TAB* 325 MG PO PRN (15:59)
[2019-05-03] MEDS: Levothyroxine TAB* 25 MCG TAB PO SCH (07:40)
[2019-05-03] MEDS: Cetirizine* 10 MG TAB PO SCH (07:41)
[2019-05-03] MEDS: Lithium Carbonate TAB* 300 MG PO SCH ×2 (07:41→20:33)
[2019-05-03] MEDS: risperiDONE TAB* 2 MG PO SCH ×2 (07:41→20:33)
[2019-05-03] MEDS: FLUoxetine CAP* 20 MG PO SCH (07:41)
[2019-05-03] MEDS: Fluticasone NASAL SPRAY 50MCG* 16 gm SPRAY BTL BOTH NARES SCH (07:43)
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
[2019-05-04] MEDS: hydrOXYzine HCL TAB* 50 MG PO PRN (02:01)
[2019-05-04] MEDS: risperiDONE TAB* 2 MG PO SCH (07:22)
[2019-05-04] MEDS: FLUoxetine CAP* 20 MG PO SCH (07:23)
[2019-05-04] MEDS: Cetirizine* 10 MG TAB PO SCH (07:23)
[2019-05-04] MEDS: Lithium Carbonate TAB* 300 MG PO SCH ×2 (07:23→20:47)
[2019-05-04] MEDS: Levothyroxine TAB* 25 MCG TAB PO SCH (07:25)
[2019-05-04] MEDS: Fluticasone NASAL SPRAY 50MCG* 16 gm SPRAY BTL BOTH NARES SCH (09:47)
--- NOTE | 2019-05-04 10:30 | PN ---
Subjective - Subjective Date of Service: 05/04/19 Service Type: 64091 Hosp care 15 min low complexity Subjective: Ishaan appears considerably better and more interactive this morning. He feels like he has returned to his baseline and is much more present and social on the milieu. He agrees to attend groups today and requests computer privileges so that he can email work. He does complain of significant sialorrrhea from risperidone and requests to be put back on olanzapine. This in noticeable on exam. He denies SI and HI. I asked the patient about a therapeutic family meeting with his parents but he denies this, saying "I'm not ready to talk to them. Maybe after I'm out of the hospital. Objective - General Observations Appearance: Neat Appears Stated Age: Yes Stature: Thin Posture: WNL Eye Contact: Average Behavior/Activity: WNL - Interaction Observations Attitude Towards Examiner: Cooperative Stated Mood: Euthymic Affect: Full Speech Pattern/Tone: Clear, Appropriate Thought Process: Coherent Perception: WNL Thought Content: WNL Hallucination Type: None Delusion Type: None - Cognitive Function Orientation: A&O x 4 Level of Consciousness: Awake, Alert Estimated Intelligence: Normal Insight: WNL Judgment Within Normal Limits: Yes - Medication Compliance Cooperative with Inpatient Medication Regimen: Yes - Group Participation Participates in Group Activities: No Assessment - Assessment Merits Inpatient Hospitalization: Consolidate Improvements, Pending Safe DC Plan Inpatient DSM-V Dx: F31.64 Clinical Impression: 28 y.o. single, white male with a history of autism spectrum and bipolar disorders arrives via police and the mobile crisis team after his parents called for help when he was displaying disorganized, paranoid behavior and not attending to ADLs. BSU: Problem List - Patient Problems (1) Bipolar affective, mixed, sev w/ psych Current Visit: No Status: Acute Priority: High Code(s): F31.64 - BIPOLAR DISORD, CRNT EPISODE MIXED, SEVERE, W PSYCH FEATURES SNOMED Code(s): 019708131 Plan - Plan Treatment Plan: Name: ISHAAN PARKINSON Birthdate: 1990 [id number] Ishaan has improved on a regimen of fluoxetine 20mg PO qday, lithium 600mg PO BID and risperidone 2mg PO BID. Unfortunately he is having excessive drooling from risperidone so this will be discontinued in favor of olanzapine 5mg PO qhs. [facility] discharge tomorrow (2/28) with f/u treatment scheduled with private therapist and NPP. Continued Medication Management: Different Medication Medications: Current Medications Acetaminophen (Tylenol Tab*) 650 mg PO Q4H PRN PRN Reason: for pain; or Temp >101 F Last Admin: 05/02/19 15:59 Dose: 650 mg Al Hydrox/Mg Hydrox/Simethicone (Maalox Plus*) 30 ml PO Q4H PRN PRN Reason: INDIGESTION Cetirizine HCl (Zyrtec*) 10 mg PO DAILY [facility] Last Admin: 05/04/19 07:23 Dose: 10 mg Chlorpromazine HCl (Thorazine Tab*) 100 mg PO Q6H PRN PRN Reason: AGITATION Fluoxetine HCl (Prozac Cap*) 20 mg PO DAILY [facility] Last Admin: 05/04/19 07:23 Dose: 20 mg Fluticasone Propionate (Flonase Nasal [place] 50mcg*) 2 spray BOTH NARES DAILY [facility] Last Admin: 05/04/19 09:47 Dose: Not Given Hydroxyzine HCl (Atarax Tab*) 50 mg PO Q6H PRN PRN Reason: anxiety Last Admin: 05/04/19 02:01 Dose: 50 mg Levothyroxine Sodium (Synthroid Tab*) 50 mcg PO QAM@0600 [facility] Last Admin: 05/04/19 07:25 Dose: 50 mcg [place] Carbonate ([place] Carbonate Tab*) 600 mg PO BID [facility] Last Admin: 05/04/19 07:23 Dose: 600 mg Olanzapine (Zyprexa Tab*) 5 mg PO BEDTIME [facility] - Discharge Plan Discharge Plan: Outpatient Follow Up Outpatient Program: Private Clinician(s)
--- NOTE | 2019-05-04 12:55 | PN ---
BSU: Group Therapy Note - Service Type Service Type: [id number] Group Psychotherapy - Cognitive Behavioral Group Therapy ( CBT):Patient was attentive and participatory in CBT programming this morning, and remained in good behavioral control. Patient expressed positive insights regarding relevant treatment interventions and goals.
--- NOTE | 2019-05-04 16:17 | PN ---
BSU: Group Therapy Note - Service Type Service Type: [id number] Group Psychotherapy - Medication Education Group: Patient attended group and presented with flat affect that did not vary with discussion. Although responsive to direct prompts to respond to questions, patient did not engage in spontaneous conversation.
[2019-05-04] MEDS ORDERED: OLANzapine TAB* 5 MG PO SCH (21:00)
[2019-05-05] MEDS: hydrOXYzine HCL TAB* 50 MG PO PRN ×3 (03:38→17:43)
[2019-05-05] MEDS: Lithium Carbonate TAB* 300 MG PO SCH ×2 (08:24→21:11)
[2019-05-05] MEDS: FLUoxetine CAP* 20 MG PO SCH (08:24)
[2019-05-05] MEDS: Cetirizine* 10 MG TAB PO SCH (08:24)
[2019-05-05] MEDS: Levothyroxine TAB* 25 MCG TAB PO SCH (08:24)
[2019-05-05] MEDS: Fluticasone NASAL SPRAY 50MCG* 16 gm SPRAY BTL BOTH NARES SCH (08:26)
--- NOTE | 2019-05-05 14:17 | PN ---
Subjective - Subjective Date of Service: 05/05/19 Service Type: 95850 Hosp care 15 min low complexity Subjective: Ishaan is still not back to baseline. He was anxious and shut down when meeting with me this morning at the med window. He did the same thing when myself and KATIE Mejiaa re-engaged with him later in the afternoon. He admitted to us that he was having distressing, angry thoughts. "I was thinking about how you could hurt people with chemicals. It wasn't exactly healthy to be having those thoughts." We stopped risperidone yesterday in favor of lower-dose olanzapine and, while his drooling went away, he does not appear nearly as interactive today. Objective - General Observations Appearance: Neat Appears Stated Age: Yes Stature: WNL Posture: Slumped Eye Contact: Avoidant - Interaction Observations Attitude Towards Examiner: Cooperative Stated Mood: Dysphoric Affect: Flat Speech Pattern/Tone: Delayed Thought Process: Disorganized Thought Content: Paranoid Thought Process: Lethality: Homicidal Ideation, Paranoid Ideation Hallucination Type: None Delusion Type: Persecution - Cognitive Function Orientation: A&O x 4 Level of Consciousness: Awake Cognition: WNL Estimated Intelligence: Normal Insight: WNL Judgment Within Normal Limits: Yes - Medication Compliance Cooperative with Inpatient Medication Regimen: Yes - Group Participation Participates in Group Activities: Yes Assessment - Assessment Merits Inpatient Hospitalization: For Immediate Safety, For Stabilization Inpatient DSM-V Dx: F31.64 Clinical Impression: 28 y.o. single, white male with a history of autism spectrum and bipolar disorders arrives via police and the mobile crisis team after his parents called for help when he was displaying disorganized, paranoid behavior and not attending to ADLs. BSU: Problem List - Patient Problems (1) Bipolar affective, mixed, sev w/ psych Current Visit: No Status: Acute Priority: High Code(s): F31.64 - BIPOLAR DISORD, CRNT EPISODE MIXED, SEVERE, W PSYCH FEATURES SNOMED Code(s): 869761347 Plan - Plan Treatment Plan: Name: ISHAAN PARKINSON Birthdate: 1990 [id number] Ishaan has improved some on a regimen of fluoxetine 20mg PO qday, lithium 600mg PO BID olanzapine 5mg PO qhs, however, he is not back to baseline. We will change olanzapine back to risperidone at 1mg PO BID and keep him through the weekend. [facility] discharge Wednesday (05/07) with f/u treatment scheduled with private therapist and NPP. Continued Medication Management: Different Medication Medications: Current Medications Acetaminophen (Tylenol Tab*) 650 mg PO Q4H PRN PRN Reason: for pain; or Temp >101 F Last Admin: 05/02/19 15:59 Dose: 650 mg Al Hydrox/Mg Hydrox/Simethicone (Maalox Plus*) 30 ml PO Q4H PRN PRN Reason: INDIGESTION Cetirizine HCl (Zyrtec*) 10 mg PO DAILY [facility] Last Admin: 05/05/19 08:24 Dose: 10 mg Chlorpromazine HCl (Thorazine Tab*) 100 mg PO Q6H PRN PRN Reason: AGITATION Fluoxetine HCl (Prozac Cap*) 20 mg PO DAILY [facility] Last Admin: 05/05/19 08:24 Dose: 20 mg Fluticasone Propionate (Flonase Nasal [place] 50mcg*) 2 spray BOTH NARES DAILY [facility] Last Admin: 05/05/19 08:26 Dose: Not Given Hydroxyzine HCl (Atarax Tab*) 50 mg PO Q6H PRN PRN Reason: anxiety Last Admin: 05/05/19 10:46 Dose: 50 mg Levothyroxine Sodium (Synthroid Tab*) 50 mcg PO QAM@0600 [facility] Last Admin: 05/05/19 08:24 Dose: 50 mcg [place] Carbonate ([place] Carbonate Tab*) 600 mg PO BID [facility] Last Admin: 05/05/19 08:24 Dose: 600 mg Risperidone (Risperdal*) 1 mg PO BID [facility] - Discharge Plan Discharge Plan: Inpatient Hospitalization
[2019-05-05] MEDS ORDERED: OLANzapine TAB* 5 MG PO SCH (21:00)
[2019-05-05] MEDS: risperiDONE TAB* 1 MG PO SCH (21:11)
[2019-05-06] MEDS: Levothyroxine TAB* 25 MCG TAB PO SCH (09:17)
[2019-05-06] MEDS: Lithium Carbonate TAB* 300 MG PO SCH ×2 (09:18→20:45)
[2019-05-06] MEDS: Cetirizine* 10 MG TAB PO SCH (09:18)
[2019-05-06] MEDS: FLUoxetine CAP* 20 MG PO SCH (09:18)
[2019-05-06] MEDS: Fluticasone NASAL SPRAY 50MCG* 16 gm SPRAY BTL BOTH NARES SCH (09:34)
[2019-05-06] MEDS: risperiDONE TAB* 1 MG PO SCH ×2 (09:34→20:48)
[2019-05-06] MEDS: hydrOXYzine HCL TAB* 50 MG PO PRN (15:54)
[2019-05-07] MEDS: Cetirizine* 10 MG TAB PO SCH (07:15)
[2019-05-07] MEDS: Fluticasone NASAL SPRAY 50MCG* 16 gm SPRAY BTL BOTH NARES SCH (07:15)
[2019-05-07] MEDS: Levothyroxine TAB* 25 MCG TAB PO SCH (07:15)
[2019-05-07] MEDS: risperiDONE TAB* 1 MG PO SCH ×2 (07:15→20:29)
[2019-05-07] MEDS: FLUoxetine CAP* 20 MG PO SCH (07:15)
[2019-05-07] MEDS: Lithium Carbonate TAB* 300 MG PO SCH ×2 (07:15→20:29)
[2019-05-08] MEDS: risperiDONE TAB* 1 MG PO SCH ×2 (01:44→09:15)
[2019-05-08] MEDS: Levothyroxine TAB* 25 MCG TAB PO SCH (07:10)
[2019-05-08] MEDS: FLUoxetine CAP* 20 MG PO SCH (09:14)
[2019-05-08] MEDS: Cetirizine* 10 MG TAB PO SCH (09:14)
[2019-05-08] MEDS: Lithium Carbonate TAB* 300 MG PO SCH ×2 (09:14→21:07)
[2019-05-08] MEDS: Fluticasone NASAL SPRAY 50MCG* 16 gm SPRAY BTL BOTH NARES SCH (09:16)
--- NOTE | 2019-05-08 10:46 | PN ---
Subjective - Subjective Date of Service: 05/08/19 Service Type: 38650 Hosp care 15 min low complexity Subjective: Ishaan's presentation appears to have been inconsistent over the weekend. At times he is giddy and interactive, other times sullen and morose. Today I find him in the meditation room where he is lying on the floor on a yoga mat with his eyes closed. He does not make eye contact. He denies SI or HI. I ask about reports that he refused risperidone over the weekend to which he replies "If you need to do anything, can you just increase the lithium or something? I really don't want to be on an antipsychotic." He then refuses to answer any subsequent questions and is seen to be fluttering his eyes in rapid blinking motions. Shortly thereafter, he is observed by this clinician in the hallway laughing and joking with peers. Objective - General Observations Appearance: Well Groomed Appears Stated Age: Yes Stature: Thin Posture: Slumped Eye Contact: Avoidant Behavior/Activity: Peculiar - Interaction Observations Attitude Towards Examiner: Uncooperative Stated Mood: Euthymic Affect: Full Speech Pattern/Tone: Delayed Thought Process: Coherent Perception: WNL Thought Content: WNL Hallucination Type: None Delusion Type: None - Cognitive Function Orientation: A&O x 4 Level of Consciousness: Awake Cognition: WNL Estimated Intelligence: Normal Insight: WNL Judgment Within Normal Limits: Yes - Medication Compliance Cooperative with Inpatient Medication Regimen: Partial - Group Participation Participates in Group Activities: Yes Assessment - Assessment Merits Inpatient Hospitalization: Consolidate Improvements, Pending Safe DC Plan Inpatient DSM-V Dx: F31.64 Clinical Impression: 28 y.o. single, white male with a history of autism spectrum and bipolar disorders arrives via police and the mobile crisis team after his parents called for help when he was displaying disorganized, paranoid behavior and not attending to ADLs. BSU: Problem List - Patient Problems (1) Bipolar affective, mixed, sev w/ psych Current Visit: No Status: Acute Priority: High Code(s): F31.64 - BIPOLAR DISORD, CRNT EPISODE MIXED, SEVERE, W PSYCH FEATURES SNOMED Code(s): 738491604 Plan - Plan Treatment Plan: Name: ISHAAN PARKINSON Birthdate: 1990 [id number] Ishaan's presentation is seeming to be more characterological than psychotic. He has a history of engaging in power struggles and I think we're seeing that develop in this hospitalization. His psychosis has improved on a regimen of fluoxetine 20mg PO qday and lithium 600mg despite not adhering with risperidone 1mg PO BID. I will switch this back to olanzapine and see if he complies. He is eating, drinking and denying SI/HI. [facility] discharge tomorrow (05/08) with f/ u treatment scheduled with private therapist and NPP. Continued Medication Management: Different Medication Medications: Current Medications Acetaminophen (Tylenol Tab*) 650 mg PO Q4H PRN PRN Reason: for pain; or Temp >101 F Last Admin: 05/02/19 15:59 Dose: 650 mg Al Hydrox/Mg Hydrox/Simethicone (Maalox Plus*) 30 ml PO Q4H PRN PRN Reason: INDIGESTION Cetirizine HCl (Zyrtec*) 10 mg PO DAILY [facility] Last Admin: 05/08/19 09:14 Dose: 10 mg Chlorpromazine HCl (Thorazine Tab*) 100 mg PO Q6H PRN PRN Reason: AGITATION Fluoxetine HCl (Prozac Cap*) 20 mg PO DAILY [facility] Last Admin: 05/08/19 09:14 Dose: 20 mg Fluticasone Propionate (Flonase Nasal [place] 50mcg*) 2 spray BOTH NARES DAILY [facility] Last Admin: 05/08/19 09:16 Dose: Not Given Hydroxyzine HCl (Atarax Tab*) 50 mg PO Q6H PRN PRN Reason: anxiety Last Admin: 05/06/19 15:54 Dose: 50 mg Levothyroxine Sodium (Synthroid Tab*) 50 mcg PO QAM@0600 [facility] Last Admin: 05/08/19 07:10 Dose: 50 mcg [place] Carbonate ([place] Carbonate Tab*) 600 mg PO BID [facility] Last Admin: 05/08/19 09:14 Dose: 600 mg Olanzapine (Zyprexa Tab*) 5 mg PO BEDTIME [facility] - Discharge Plan Discharge Plan: Outpatient Follow Up Outpatient Program: Private Clinician(s)
[2019-05-08] MEDS ORDERED: LORazepam INJ* 2 MG/ML 1 ML VIAL IM ONE (17:50)
[2019-05-08] MEDS ORDERED: diPHENhydraMINE IV* 50 MG/ML 1 ml VIAL (BENADRYL) IM ONE (17:50)
[2019-05-08] MEDS ORDERED: Haloperidol INJ IV/IM* 5 MG/ML AMP IM ONE (17:50)
[2019-05-08] MEDS: diPHENhydraMINE IV* 50 MG/ML 1 ml VIAL (BENADRYL) ONE ×2 (17:54→21:24)
--- NOTE | 2019-05-08 18:12 | PROCNOTE ---
- Assessment for Patient Restraint Face to Face Encounter Date: 05/08/19 Face to Face Encounter Time: 17:55 Evaluation of the Patient's Immediate Situation: Ishaan is starting to become more calm. Patient's Reaction to Intervention: Ishaan has no evidence of injuries. Patient's Medication and Behavioral Condition: Ishaan received haldol 5mg/Benadryl 50mg/Ativan 2mg IM times one Evaluate Need for Continued Restraint: Terminate
[2019-05-08] MEDS: OLANzapine TAB* 5 MG PO SCH (21:07)
[2019-05-08] MEDS ORDERED: Haloperidol INJ IV/IM* 5 MG/ML AMP ONE (21:12)
[2019-05-08] MEDS ORDERED: LORazepam INJ* 2 MG/ML 1 ML VIAL ONE (21:12)
[2019-05-09] MEDS: FLUoxetine CAP* 20 MG PO SCH (07:05)
[2019-05-09] MEDS: Lithium Carbonate TAB* 300 MG PO SCH ×2 (07:05→22:03)
[2019-05-09] MEDS: Cetirizine* 10 MG TAB PO SCH (07:05)
[2019-05-09] MEDS: Levothyroxine TAB* 25 MCG TAB PO SCH (07:05)
[2019-05-09] MEDS: Fluticasone NASAL SPRAY 50MCG* 16 gm SPRAY BTL BOTH NARES SCH (07:05)
[2019-05-10] MEDS: OLANzapine TAB* 5 MG PO SCH
[2019-05-10] MEDS: Levothyroxine TAB* 25 MCG TAB PO SCH (06:35)
--- NOTE | 2019-05-10 10:11 | PN ---
Subjective - Subjective Date of Service: 05/10/19 Service Type: [id number] Hosp care 15 min low complexity Subjective: Ishaan has been doing poorly. At times he appears hyperkinetic and is running around the milieu. At other times he is completely withdrawn and will not interact with others. Today he is found in his room in bed with his eyes closed. He will not make any eye contact or say anything. I understand that he has been taking all medications with the exception of antipsychotics. I offered to switch olanzapine to quetiapine but he did not respond. He is only sleeping about 3 hours a night. I did inform him that if he continues to refuse treatment we will be obligated to pursue a court order. Objective - General Observations Appearance: Unkempt Appears Stated Age: Yes Stature: Thin Posture: Slumped Eye Contact: Avoidant Behavior/Activity: Slowed - Interaction Observations Attitude Towards Examiner: Uncooperative Stated Mood: Dysphoric Affect: Blunted Speech Pattern/Tone: Delayed Thought Process: Disorganized Thought Content: Paranoid Thought Process: Lethality: Paranoid Ideation Hallucination Type: None Delusion Type: Persecution - Cognitive Function Orientation: A&O x 4, Unable to Determine Cognition: WNL Estimated Intelligence: Normal Insight: WNL Judgment Within Normal Limits: Yes - Medication Compliance Cooperative with Inpatient Medication Regimen: Partial - Group Participation Participates in Group Activities: No Assessment - Assessment Merits Inpatient Hospitalization: For Immediate Safety, For Stabilization Inpatient DSM-V Dx: F31.64 Clinical Impression: 28 y.o. single, white male with a history of autism spectrum and bipolar disorders arrives via police and the mobile crisis team after his parents called for help when he was displaying disorganized, paranoid behavior and not attending to ADLs. BSU: Problem List - Patient Problems (1) Bipolar affective, mixed, sev w/ psych Current Visit: No Status: Acute Priority: High Code(s): F31.64 - BIPOLAR DISORD, CRNT EPISODE MIXED, SEVERE, W PSYCH FEATURES SNOMED Code(s): 602081609 Plan - Plan Treatment Plan: Name: ISHAAN PARKINSON Birthdate: 1990 [id number] Ishaan's presentation is looking more like that of a year ago when he was psychomotor active at times and intermittently withdrawn. He requires antipsychotic therapy and we will d/c olanzapine in favor of quetiapine 300mg PO qhs. He is adherent with fluoxetine 20mg PO qday and lithium 600mg. Will pursue T.O.O. if he does not improve antipsychotic adherence. Continue inpatient care. Continued Medication Management: Different Medication Medications: Current Medications Acetaminophen (Tylenol Tab*) 650 mg PO Q4H PRN PRN Reason: for pain; or Temp >101 F Last Admin: 05/02/19 15:59 Dose: 650 mg Al Hydrox/Mg Hydrox/Simethicone (Maalox Plus*) 30 ml PO Q4H PRN PRN Reason: INDIGESTION Cetirizine HCl (Zyrtec*) 10 mg PO DAILY [facility] Last Admin: 05/09/19 07:05 Dose: 10 mg Chlorpromazine HCl (Thorazine Tab*) 100 mg PO Q6H PRN PRN Reason: AGITATION Fluoxetine HCl (Prozac Cap*) 20 mg PO DAILY [facility] Last Admin: 05/09/19 07:05 Dose: 20 mg Fluticasone Propionate (Flonase Nasal [place] 50mcg*) 2 spray BOTH NARES DAILY [facility] Last Admin: 05/09/19 07:05 Dose: Not Given Hydroxyzine HCl (Atarax Tab*) 50 mg PO Q6H PRN PRN Reason: anxiety Last Admin: 05/06/19 15:54 Dose: 50 mg Levothyroxine Sodium (Synthroid Tab*) 50 mcg PO QAM@0600 [facility] Last Admin: 05/10/19 06:35 Dose: 50 mcg [place] Carbonate ([place] Carbonate Tab*) 600 mg PO BID [facility] Last Admin: 05/09/19 22:03 Dose: 600 mg Quetiapine Fumarate (Seroquel Tab*) 300 mg PO BEDTIME [facility] - Discharge Plan Discharge Plan: Inpatient Hospitalization
[2019-05-10] MEDS: Fluticasone NASAL SPRAY 50MCG* 16 gm SPRAY BTL BOTH NARES SCH (12:43)
[2019-05-10] MEDS: Cetirizine* 10 MG TAB PO SCH (12:43)
[2019-05-10] MEDS: FLUoxetine CAP* 20 MG PO SCH (12:43)
[2019-05-10] MEDS: Lithium Carbonate TAB* 300 MG PO SCH ×2 (12:44→23:45)
[2019-05-10] MEDS: QUEtiapine TAB* 300 MG PO SCH (23:45)
[2019-05-11] MEDS: Levothyroxine TAB* 25 MCG TAB PO SCH (06:00)
[2019-05-11] MEDS: Cetirizine* 10 MG TAB PO SCH (11:05)
[2019-05-11] MEDS: Fluticasone NASAL SPRAY 50MCG* 16 gm SPRAY BTL BOTH NARES SCH (11:05)
[2019-05-11] MEDS: FLUoxetine CAP* 20 MG PO SCH (11:05)
[2019-05-11] MEDS: Lithium Carbonate TAB* 300 MG PO SCH ×2 (11:05→19:25)
[2019-05-11] MEDS: QUEtiapine TAB* 300 MG PO SCH (20:40)
[2019-05-12] MEDS ORDERED: diPHENhydraMINE IV* 50 MG/ML 1 ml VIAL (BENADRYL) IM ONE (05:28)
[2019-05-12] MEDS ORDERED: chlorproMAZINE INJ* 25 MG/ML 2 ML (50 MG) IM ONE (05:28)
[2019-05-12] MEDS ORDERED: diPHENhydraMINE IV* 50 MG/ML 1 ml VIAL (BENADRYL) ONE (05:30)
[2019-05-12] MEDS ORDERED: chlorproMAZINE INJ* 25 MG/ML 2 ML (50 MG) ONE (05:30)
[2019-05-12] MEDS: Levothyroxine TAB* 25 MCG TAB PO SCH (10:05)
[2019-05-12] MEDS: Cetirizine* 10 MG TAB PO SCH (10:38)
[2019-05-12] MEDS: Fluticasone NASAL SPRAY 50MCG* 16 gm SPRAY BTL BOTH NARES SCH (10:38)
[2019-05-12] MEDS: FLUoxetine CAP* 20 MG PO SCH (10:38)
[2019-05-12] MEDS: Lithium Carbonate TAB* 300 MG PO SCH ×2 (10:38→21:00)
--- NOTE | 2019-05-12 15:48 | PN ---
Subjective - Subjective Date of Service: 05/12/19 Service Type: [id number] Hosp care 15 min low complexity Subjective: Ishaan had an episode last night of unsafe behavior, refusing to leave a treatment area that was occupied by an agitated, psychotic peer. Ultimately, after refusing multiple verbal requests and prompts, he was manually removed from the dangerous area and taken to seclusion, where he refused PO stat meds and was given IM injections of Thorazine and Benadryl. On exam today he is totally uncooperative, rocking in a rocking chair in the meditation room and answering every question with an "I don't care." He is paranoid and bizarre. Objective - General Observations Appearance: Well Groomed Appears Stated Age: Yes Stature: Thin Posture: WNL Eye Contact: Avoidant Behavior/Activity: Accelerated - Interaction Observations Attitude Towards Examiner: Uncooperative Stated Mood: Dysphoric Affect: Labile Speech Pattern/Tone: Delayed Thought Process: Disorganized Thought Content: Paranoid Thought Process: Lethality: Paranoid Ideation Hallucination Type: None Delusion Type: Persecution - Cognitive Function Orientation: A&O x 4 Level of Consciousness: Awake Cognition: WNL Estimated Intelligence: Normal Insight: Difficulty Acknowledging Presence of Psyciatric Problems Judgment Within Normal Limits: No Ability to Make Reasonable Decisions: Serverely Impaired - Medication Compliance Cooperative with Inpatient Medication Regimen: No - Group Participation Participates in Group Activities: No Assessment - Assessment Merits Inpatient Hospitalization: For Immediate Safety, For Stabilization Inpatient DSM-V Dx: F31.64 Clinical Impression: 28 y.o. single, white male with a history of autism spectrum and bipolar disorders arrives via police and the mobile crisis team after his parents called for help when he was displaying disorganized, paranoid behavior and not attending to ADLs. BSU: Problem List - Patient Problems (1) Bipolar affective, mixed, sev w/ psych Current Visit: No Status: Acute Priority: High Code(s): F31.64 - BIPOLAR DISORD, CRNT EPISODE MIXED, SEVERE, W PSYCH FEATURES SNOMED Code(s): 790988130 Plan - Plan Treatment Plan: Name: ISHAAN PARKINSON Birthdate: 1990 [id number] Selenas is non-adherent with indicated medications, including quetiapine 300mg PO qhs, fluoxetine 20mg PO qday and lithium 600mg. Will pursue T.O.O. Continue inpatient care. Continued Medication Management: Continue Outpt Medication Medications: Current Medications Acetaminophen (Tylenol Tab*) 650 mg PO Q4H PRN PRN Reason: for pain; or Temp >101 F Last Admin: 05/02/19 15:59 Dose: 650 mg Al Hydrox/Mg Hydrox/Simethicone (Maalox Plus*) 30 ml PO Q4H PRN PRN Reason: INDIGESTION Cetirizine HCl (Zyrtec*) 10 mg PO DAILY [facility] Last Admin: 05/12/19 10:38 Dose: Not Given Chlorpromazine HCl (Thorazine Tab*) 100 mg PO Q6H PRN PRN Reason: AGITATION Fluoxetine HCl (Prozac Cap*) 20 mg PO DAILY [facility] Last Admin: 05/12/19 10:38 Dose: Not Given Fluticasone Propionate (Flonase Nasal [place] 50mcg*) 2 spray BOTH NARES DAILY [facility] Last Admin: 05/12/19 10:38 Dose: Not Given Hydroxyzine HCl (Atarax Tab*) 50 mg PO Q6H PRN PRN Reason: anxiety Last Admin: 05/06/19 15:54 Dose: 50 mg Levothyroxine Sodium (Synthroid Tab*) 50 mcg PO QAM@0600 [facility] Last Admin: 05/12/19 10:05 Dose: Not Given [place] Carbonate ([place] Carbonate Tab*) 600 mg PO BID [facility] Last Admin: 05/12/19 10:38 Dose: Not Given Quetiapine Fumarate (Seroquel Tab*) 300 mg PO BEDTIME [facility] Last Admin: 05/11/19 20:40 Dose: Not Given - Discharge Plan Discharge Plan: Inpatient Hospitalization
[2019-05-12] MEDS: QUEtiapine TAB* 300 MG PO SCH (21:00)
[2019-05-13 08:33] LABS: Magnesium 1.7 mg/dL (1.9-2.7)
[2019-05-13] MEDS: Fluticasone NASAL SPRAY 50MCG* 16 gm SPRAY BTL BOTH NARES SCH (09:13)
[2019-05-13] MEDS: Lithium Carbonate TAB* 300 MG PO SCH ×2 (09:13→21:12)
[2019-05-13] MEDS: Cetirizine* 10 MG TAB PO SCH (09:13)
[2019-05-13] MEDS: FLUoxetine CAP* 20 MG PO SCH (09:13)
[2019-05-13] MEDS: Levothyroxine TAB* 25 MCG TAB PO SCH (09:13)
[2019-05-13 09:19] LABS: Folate 13.36 ng/mL (>3.99)
[2019-05-13 09:23] LABS: Vitamin D Total 25(OH) 35.6 ng/mL (20-50)
[2019-05-13] MEDS: QUEtiapine TAB* 300 MG PO SCH (21:12)
[2019-05-14] MEDS: Levothyroxine TAB* 25 MCG TAB PO SCH (08:26)
[2019-05-14] MEDS: Lithium Carbonate TAB* 300 MG PO SCH ×2 (09:10→21:12)
[2019-05-14] MEDS: Fluticasone NASAL SPRAY 50MCG* 16 gm SPRAY BTL BOTH NARES SCH (09:10)
[2019-05-14] MEDS: FLUoxetine CAP* 20 MG PO SCH (09:10)
[2019-05-14] MEDS: Cetirizine* 10 MG TAB PO SCH (09:10)
[2019-05-14] MEDS: QUEtiapine TAB* 300 MG PO SCH (21:13)
[2019-05-15] MEDS: Levothyroxine TAB* 25 MCG TAB PO SCH ×2 (08:28→09:48)
[2019-05-15] MEDS: Lithium Carbonate TAB* 300 MG PO SCH ×3 (08:28→20:12)
[2019-05-15] MEDS: FLUoxetine CAP* 20 MG PO SCH ×2 (08:28→09:49)
[2019-05-15] MEDS: Fluticasone NASAL SPRAY 50MCG* 16 gm SPRAY BTL BOTH NARES SCH ×2 (08:28→09:46)
[2019-05-15] MEDS: Cetirizine* 10 MG TAB PO SCH ×2 (08:28→09:49)
--- NOTE | 2019-05-15 12:53 | PN ---
Subjective - Subjective Date of Service: 05/15/19 Service Type: [id number] Hosp care 15 min low complexity Subjective: Ishaan did not take his medications over the weekend and his behavior was documented as vacillating between withdrawn and irritable. He did take his medications spontaneously this morning, however, he refuses to engage much with me. I asked about arranging a meeting with his parents, which he tersely refuses, saying "I don't want to talk with them." He denies SI or HI. I called his father Adam to update him. His parents discovered his [employer]'s address and mailed Ishaan's May rent. Objective - General Observations Appearance: Unkempt Appears Stated Age: Yes Stature: Thin Posture: Slumped Behavior/Activity: Peculiar - Interaction Observations Attitude Towards Examiner: Uncooperative Stated Mood: Dysphoric Affect: Restricted Speech Pattern/Tone: Delayed Thought Process: Disorganized Thought Content: Paranoid Thought Process: Lethality: Paranoid Ideation Hallucination Type: None Delusion Type: Persecution - Cognitive Function Orientation: A&O x 4 Level of Consciousness: Awake, Alert Cognition: WNL Estimated Intelligence: Normal Insight: Difficulty Acknowledging Presence of Psyciatric Problems Judgment Within Normal Limits: Yes Ability to Make Reasonable Decisions: Serverely Impaired - Medication Compliance Cooperative with Inpatient Medication Regimen: Partial - Group Participation Participates in Group Activities: No Assessment - Assessment Merits Inpatient Hospitalization: For Immediate Safety, For Stabilization Inpatient DSM-V Dx: F31.64 Clinical Impression: 28 y.o. single, white male with a history of autism spectrum and bipolar disorders arrives via police and the mobile crisis team after his parents called for help when he was displaying disorganized, paranoid behavior and not attending to ADLs. BSU: Problem List - Patient Problems (1) Bipolar affective, mixed, sev w/ psych Current Visit: No Status: Acute Priority: High Code(s): F31.64 - BIPOLAR DISORD, CRNT EPISODE MIXED, SEVERE, W PSYCH FEATURES SNOMED Code(s): 279893753 Plan - Plan Treatment Plan: Name: ISHAAN PARKINSON Birthdate: 1990 [id number] Mauricio is mostly non-adherent with indicated medications, including quetiapine 300mg PO qhs, fluoxetine 20mg PO qday and lithium 600mg. Will pursue T.O.O. Continue inpatient care. Continued Medication Management: Different Medication Medications: Current Medications Acetaminophen (Tylenol Tab*) 650 mg PO Q4H PRN PRN Reason: for pain; or Temp >101 F Last Admin: 05/02/19 15:59 Dose: 650 mg Al Hydrox/Mg Hydrox/Simethicone (Maalox Plus*) 30 ml PO Q4H PRN PRN Reason: INDIGESTION Cetirizine HCl (Zyrtec*) 10 mg PO DAILY [facility] Last Admin: 05/15/19 09:49 Dose: 10 mg Chlorpromazine HCl (Thorazine Tab*) 100 mg PO Q6H PRN PRN Reason: AGITATION Fluoxetine HCl (Prozac Cap*) 20 mg PO DAILY [facility] Last Admin: 05/15/19 09:49 Dose: 20 mg Fluticasone Propionate (Flonase Nasal [place] 50mcg*) 2 spray BOTH NARES DAILY [facility] Last Admin: 05/15/19 09:46 Dose: 2 spray Hydroxyzine HCl (Atarax Tab*) 50 mg PO Q6H PRN PRN Reason: anxiety Last Admin: 05/06/19 15:54 Dose: 50 mg Levothyroxine Sodium (Synthroid Tab*) 50 mcg PO QAM@0600 [facility] Last Admin: 05/15/19 09:48 Dose: 50 mcg [place] Carbonate ([place] Carbonate Tab*) 600 mg PO BID [facility] Last Admin: 05/15/19 09:49 Dose: 600 mg Magnesium Oxide (Magox 400 Tab*) 400 mg PO DAILY [facility] Quetiapine Fumarate (Seroquel Tab*) 300 mg PO BEDTIME [facility] Last Admin: 05/14/19 21:13 Dose: Not Given - Discharge Plan Discharge Plan: Inpatient Hospitalization Lab Results - Lab Results Lab Results: 05/13/19 08:11 Magnesium 1.7 L Vitamin B12 602 25-OH Vitamin D Total 35.6 Folate 13.36
[2019-05-15 16:51] LABS: Zinc 0.68 mcg/mL (0.66-1.10)
[2019-05-15] MEDS: QUEtiapine TAB* 300 MG PO SCH (20:12)
[2019-05-16] MEDS: Levothyroxine TAB* 25 MCG TAB PO SCH (09:12)
[2019-05-16] MEDS: Cetirizine* 10 MG TAB PO SCH (09:12)
[2019-05-16] MEDS: FLUoxetine CAP* 20 MG PO SCH (09:12)
[2019-05-16] MEDS: Magnesium Oxide TAB* 400 MG PO SCH (09:12)
[2019-05-16] MEDS: Lithium Carbonate TAB* 300 MG PO SCH ×2 (09:12→21:02)
[2019-05-16] MEDS: Fluticasone NASAL SPRAY 50MCG* 16 gm SPRAY BTL BOTH NARES SCH (09:13)
[2019-05-16] MEDS: QUEtiapine TAB* 300 MG PO SCH (21:03)
[2019-05-16] MEDS: Acetaminophen TAB* 325 MG PO PRN (21:05)
[2019-05-17] MEDS: Levothyroxine TAB* 25 MCG TAB PO SCH (10:04)
[2019-05-17] MEDS: Cetirizine* 10 MG TAB PO SCH (10:04)
[2019-05-17] MEDS: Magnesium Oxide TAB* 400 MG PO SCH (10:05)
[2019-05-17] MEDS: FLUoxetine CAP* 20 MG PO SCH (10:05)
[2019-05-17] MEDS: Lithium Carbonate TAB* 300 MG PO SCH ×2 (10:05→20:52)
[2019-05-17] MEDS: Fluticasone NASAL SPRAY 50MCG* 16 gm SPRAY BTL BOTH NARES SCH (10:06)
--- NOTE | 2019-05-17 12:02 | PN ---
Subjective - Subjective Date of Service: 05/17/19 Service Type: [id number] Hosp care 15 min low complexity Subjective: Ishaan has been taking his medications as directed since this Wednesday (05/14), however, he is not engaging in treatment and is dismissive when staff tries to engage him in any meaningful therapeutic interactions. On exam he is found lying in bed, having been observed by this clinician just going in there within a minute of my entry. His legs are crossed with one propped up in the air and his eyes are closed. When I engage with him a smile comes across his face. Despite my best efforts, Ishaan refuses to engage with me. He is informed about the upcoming court case for treatment over his objection but makes no reaction. I called his mother Maddy and updated her on Ishaan's status. Objective - General Observations Appearance: Disheveled Appears Stated Age: Yes Stature: Thin Posture: Slumped Eye Contact: Avoidant Behavior/Activity: Slowed - Interaction Observations Attitude Towards Examiner: Uncooperative Stated Mood: Dysphoric Affect: Incongruent Speech Pattern/Tone: Delayed Thought Process: Impoverished Thought Content: Paranoid Thought Process: Lethality: Paranoid Ideation Hallucination Type: None Delusion Type: Persecution - Cognitive Function Orientation: A&O x 4 Level of Consciousness: Awake Cognition: WNL Estimated Intelligence: Normal Insight: Mostly Blames Others for Problems Judgment Within Normal Limits: No Ability to Make Reasonable Decisions: Serverely Impaired - Medication Compliance Cooperative with Inpatient Medication Regimen: Yes - Group Participation Participates in Group Activities: No Assessment - Assessment Merits Inpatient Hospitalization: For Immediate Safety, For Stabilization Inpatient DSM-V Dx: F31.64 Clinical Impression: 28 y.o. single, white male with a history of autism spectrum and bipolar disorders arrives via police and the mobile crisis team after his parents called for help when he was displaying disorganized, paranoid behavior and not attending to ADLs. BSU: Problem List - Patient Problems (1) Bipolar affective, mixed, sev w/ psych Current Visit: No Status: Acute Priority: High Code(s): F31.64 - BIPOLAR DISORD, CRNT EPISODE MIXED, SEVERE, W PSYCH FEATURES SNOMED Code(s): 243594970 Plan - Plan Treatment Plan: Name: ISHAAN PARKINSON Birthdate: 1990 [id number] Ishaan's is mostly non-adherent with indicated medications, including quetiapine 300mg PO qhs, fluoxetine 20mg PO qday and lithium 600mg. Will pursue T.O.O. Continue inpatient care. Continued Medication Management: Different Medication Medications: Current Medications Acetaminophen (Tylenol Tab*) 650 mg PO Q4H PRN PRN Reason: for pain; or Temp >101 F Last Admin: 05/16/19 21:05 Dose: 650 mg Al Hydrox/Mg Hydrox/Simethicone (Maalox Plus*) 30 ml PO Q4H PRN PRN Reason: INDIGESTION Cetirizine HCl (Zyrtec*) 10 mg PO DAILY [facility] Last Admin: 05/17/19 10:04 Dose: 10 mg Chlorpromazine HCl (Thorazine Tab*) 100 mg PO Q6H PRN PRN Reason: AGITATION Fluoxetine HCl (Prozac Cap*) 20 mg PO DAILY [facility] Last Admin: 05/17/19 10:05 Dose: 20 mg Fluticasone Propionate (Flonase Nasal [place] 50mcg*) 2 spray BOTH NARES DAILY [facility] Last Admin: 05/17/19 10:06 Dose: 2 spray Hydroxyzine HCl (Atarax Tab*) 50 mg PO Q6H PRN PRN Reason: anxiety Last Admin: 05/06/19 15:54 Dose: 50 mg Levothyroxine Sodium (Synthroid Tab*) 50 mcg PO QAM@0600 [facility] Last Admin: 05/17/19 10:04 Dose: 50 mcg [place] Carbonate ([place] Carbonate Tab*) 600 mg PO BID [facility] Last Admin: 05/17/19 10:05 Dose: 600 mg Magnesium Oxide (Magox 400 Tab*) 400 mg PO DAILY [facility] Last Admin: 05/17/19 10:05 Dose: 400 mg Quetiapine Fumarate (Seroquel Tab*) 300 mg PO BEDTIME [facility] Last Admin: 05/16/19 21:03 Dose: 300 mg - Discharge Plan Discharge Plan: Inpatient Hospitalization
[2019-05-17] MEDS: QUEtiapine TAB* 300 MG PO SCH (20:52)
[2019-05-18] MEDS: Levothyroxine TAB* 25 MCG TAB PO SCH (09:48)
[2019-05-18] MEDS: Lithium Carbonate TAB* 300 MG PO SCH ×2 (09:48→22:47)
[2019-05-18] MEDS: FLUoxetine CAP* 20 MG PO SCH (09:48)
[2019-05-18] MEDS: Cetirizine* 10 MG TAB PO SCH (09:49)
[2019-05-18] MEDS: Magnesium Oxide TAB* 400 MG PO SCH (09:49)
[2019-05-18] MEDS: Fluticasone NASAL SPRAY 50MCG* 16 gm SPRAY BTL BOTH NARES SCH (09:53)
[2019-05-18] MEDS: QUEtiapine TAB* 300 MG PO SCH (22:47)
[2019-05-19] MEDS: Cetirizine* 10 MG TAB PO SCH (11:16)
[2019-05-19] MEDS: FLUoxetine CAP* 20 MG PO SCH (11:16)
[2019-05-19] MEDS: Levothyroxine TAB* 25 MCG TAB PO SCH (11:16)
[2019-05-19] MEDS: Lithium Carbonate TAB* 300 MG PO SCH (11:17)
[2019-05-19] MEDS: Fluticasone NASAL SPRAY 50MCG* 16 gm SPRAY BTL BOTH NARES SCH (11:17)
[2019-05-19] MEDS: Magnesium Oxide TAB* 400 MG PO SCH (11:19)
--- NOTE | 2019-05-19 14:32 | PN ---
Subjective - Subjective Date of Service: 05/19/19 Service Type: [id number] Hosp care 15 min low complexity Subjective: Ishaan did not participate in his court hearing this morning. When I went to see him he is bouncing a ball and circling around the meditation room and staring at the floor. "Go away...I don't want to talk to you." He is not participating in milieu programming and refused to take his medications this morning. I spoke with his mother Maddy and made her aware of his lack of progress. Objective - General Observations Appearance: Disheveled Appears Stated Age: Yes Stature: Thin Posture: WNL Eye Contact: Average Behavior/Activity: Peculiar - Interaction Observations Attitude Towards Examiner: Hostile Stated Mood: Dysphoric Affect: Restricted Speech Pattern/Tone: Delayed Thought Process: Disorganized Thought Content: Paranoid Thought Process: Lethality: Paranoid Ideation Hallucination Type: None Delusion Type: Persecution - Cognitive Function Orientation: A&O x 4 Level of Consciousness: Awake Cognition: WNL Estimated Intelligence: Normal Insight: WNL Judgment Within Normal Limits: No Ability to Make Reasonable Decisions: Serverely Impaired - Medication Compliance Cooperative with Inpatient Medication Regimen: Partial - Group Participation Participates in Group Activities: No Assessment - Assessment Merits Inpatient Hospitalization: For Immediate Safety, For Stabilization Inpatient DSM-V Dx: F31.64 Clinical Impression: 28 y.o. single, white male with a history of autism spectrum and bipolar disorders arrives via police and the mobile crisis team after his parents called for help when he was displaying disorganized, paranoid behavior and not attending to ADLs. BSU: Problem List - Patient Problems (1) Bipolar affective, mixed, sev w/ psych Current Visit: No Status: Acute Priority: High Code(s): F31.64 - BIPOLAR DISORD, CRNT EPISODE MIXED, SEVERE, W PSYCH FEATURES SNOMED Code(s): 714968228 Plan - Plan Treatment Plan: Name: ISHAAN PARKINSON Birthdate: 1990 [id number] Mauricio is mostly non-adherent with indicated medications, including quetiapine 300mg PO qhs, fluoxetine 20mg PO qday and lithium 600mg. Consider long-acting injectable antipsychotic. Refer to [facility]. Continued Medication Management: Different Medication Medications: Current Medications Acetaminophen (Tylenol Tab*) 650 mg PO Q4H PRN PRN Reason: for pain; or Temp >101 F Last Admin: 05/16/19 21:05 Dose: 650 mg Al Hydrox/Mg Hydrox/Simethicone (Maalox Plus*) 30 ml PO Q4H PRN PRN Reason: INDIGESTION Cetirizine HCl (Zyrtec*) 10 mg PO DAILY [facility] Last Admin: 05/19/19 11:16 Dose: Not Given Chlorpromazine HCl (Thorazine Tab*) 100 mg PO Q6H PRN PRN Reason: AGITATION Fluoxetine HCl (Prozac Cap*) 20 mg PO DAILY [facility] Last Admin: 05/19/19 11:16 Dose: Not Given Fluticasone Propionate (Flonase Nasal [place] 50mcg*) 2 spray BOTH NARES DAILY [facility] Last Admin: 05/19/19 11:17 Dose: Not Given Hydroxyzine HCl (Atarax Tab*) 50 mg PO Q6H PRN PRN Reason: anxiety Last Admin: 05/06/19 15:54 Dose: 50 mg Levothyroxine Sodium (Synthroid Tab*) 50 mcg PO QAM@0600 [facility] Last Admin: 05/19/19 11:16 Dose: Not Given [place] Carbonate ([place] Carbonate Tab*) 600 mg PO BID [facility] Last Admin: 05/19/19 11:17 Dose: Not Given Magnesium Oxide (Magox 400 Tab*) 400 mg PO DAILY [facility] Last Admin: 05/19/19 11:19 Dose: Not Given Quetiapine Fumarate (Seroquel Tab*) 300 mg PO BEDTIME [facility] Last Admin: 05/18/19 22:47 Dose: Not Given - Discharge Plan Discharge Plan: Consider Longer Term Tx
[2019-05-20] MEDS: Levothyroxine TAB* 25 MCG TAB PO SCH (13:09)
[2019-05-20] MEDS: Lithium Carbonate TAB* 300 MG PO SCH ×3 (13:10→20:07)
[2019-05-20] MEDS: Fluticasone NASAL SPRAY 50MCG* 16 gm SPRAY BTL BOTH NARES SCH (13:10)
[2019-05-20] MEDS: FLUoxetine CAP* 20 MG PO SCH (13:10)
[2019-05-20] MEDS: Cetirizine* 10 MG TAB PO SCH (13:10)
[2019-05-20] MEDS: Magnesium Oxide TAB* 400 MG PO SCH (13:11)
[2019-05-20] MEDS: QUEtiapine TAB* 300 MG PO SCH ×2 (20:07)
[2019-05-21] MEDS: Cetirizine* 10 MG TAB PO SCH (07:55)
[2019-05-21] MEDS: Lithium Carbonate TAB* 300 MG PO SCH ×2 (07:56→22:48)
[2019-05-21] MEDS: FLUoxetine CAP* 20 MG PO SCH (07:57)
[2019-05-21] MEDS: Levothyroxine TAB* 25 MCG TAB PO SCH (07:58)
[2019-05-21] MEDS: Fluticasone NASAL SPRAY 50MCG* 16 gm SPRAY BTL BOTH NARES SCH (07:58)
[2019-05-21] MEDS: Magnesium Oxide TAB* 400 MG PO SCH (07:58)
[2019-05-21] MEDS: hydrOXYzine HCL TAB* 50 MG PO PRN (12:26)
[2019-05-21] MEDS: QUEtiapine TAB* 300 MG PO SCH (22:48)
[2019-05-22] MEDS: Lithium Carbonate TAB* 300 MG PO SCH ×2 (07:51→21:40)
[2019-05-22] MEDS: FLUoxetine CAP* 20 MG PO SCH (07:51)
[2019-05-22] MEDS: Fluticasone NASAL SPRAY 50MCG* 16 gm SPRAY BTL BOTH NARES SCH (07:52)
[2019-05-22] MEDS: Levothyroxine TAB* 25 MCG TAB PO SCH (07:52)
[2019-05-22] MEDS: Cetirizine* 10 MG TAB PO SCH (07:52)
[2019-05-22] MEDS: Magnesium Oxide TAB* 400 MG PO SCH ×2 (07:53→11:11)
--- NOTE | 2019-05-22 12:45 | PN ---
Subjective - Subjective Date of Service: 05/22/19 Service Type: [id number] Hosp care 15 min low complexity Subjective: Ishaan remains uncooperative with care, seeming very angry towards this provider and hospital staff. "You guys locked me up in here. You have all the control. " He goes on to state, while compulsively bouncing a stress ball off the floor , "I don't trust you. You're not helpful. I don't trust the mental health system. You just send out the mental health [employer]apo and pick people up for no reason." He is unwilling to discuss with me any sort of appropriate discharge plans, such as where he will stay and what follow up treatment would look like. I called his mother Maddy to update and she agreed to come in tomorrow for a visit to see if she could make any headway with him. He refuses to answer questions about SI or HI. Objective - General Observations Appearance: Unkempt Appears Stated Age: Yes Stature: Thin Posture: WNL Eye Contact: Avoidant Behavior/Activity: Peculiar - Interaction Observations Attitude Towards Examiner: Hostile Stated Mood: Dysphoric Affect: Full Speech Pattern/Tone: Clear Thought Process: Impoverished Thought Content: Preoccupation/Ruminations, Paranoid Thought Process: Lethality: Paranoid Ideation Hallucination Type: None Delusion Type: Persecution - Cognitive Function Orientation: A&O x 4 Level of Consciousness: Awake Cognition: WNL Estimated Intelligence: Normal Insight: Difficulty Acknowledging Presence of Psyciatric Problems Judgment Within Normal Limits: No Ability to Make Reasonable Decisions: Moderately Impaired - Medication Compliance Cooperative with Inpatient Medication Regimen: Yes - Group Participation Participates in Group Activities: No Assessment - Assessment Merits Inpatient Hospitalization: For Immediate Safety, For Stabilization Inpatient DSM-V Dx: F31.64 Clinical Impression: 28 y.o. single, white male with a history of autism spectrum and bipolar disorders arrives via police and the mobile crisis team after his parents called for help when he was displaying disorganized, paranoid behavior and not attending to ADLs. BSU: Problem List - Patient Problems (1) Bipolar affective, mixed, sev w/ psych Current Visit: No Status: Acute Priority: High Code(s): F31.64 - BIPOLAR DISORD, CRNT EPISODE MIXED, SEVERE, W PSYCH FEATURES SNOMED Code(s): 708767578 Plan - Plan Treatment Plan: Name: ISHAAN PARKINSON Birthdate: 1990 [id number] Mauricio is mostly non-adherent with indicated medications, including quetiapine 300mg PO qhs, fluoxetine 20mg PO qday and lithium 600mg. Consider long-acting injectable antipsychotic. I did send an email to an autism spectrum expert and researcher, Dr. Carroll Tucker at [facility] for informal consultation. Refer to [facility]. Continued Medication Management: Different Medication Medications: Current Medications Acetaminophen (Tylenol Tab*) 650 mg PO Q4H PRN PRN Reason: for pain; or Temp >101 F Last Admin: 05/16/19 21:05 Dose: 650 mg Al Hydrox/Mg Hydrox/Simethicone (Maalox Plus*) 30 ml PO Q4H PRN PRN Reason: INDIGESTION Cetirizine HCl (Zyrtec*) 10 mg PO DAILY [facility] Last Admin: 05/22/19 07:52 Dose: Not Given Chlorpromazine HCl (Thorazine Tab*) 100 mg PO Q6H PRN PRN Reason: AGITATION Fluoxetine HCl (Prozac Cap*) 20 mg PO DAILY [facility] Last Admin: 05/22/19 07:51 Dose: 20 mg Fluticasone Propionate (Flonase Nasal [place] 50mcg*) 2 spray BOTH NARES DAILY [facility] Last Admin: 05/22/19 07:52 Dose: Not Given Hydroxyzine HCl (Atarax Tab*) 50 mg PO Q6H PRN PRN Reason: anxiety Last Admin: 05/21/19 12:26 Dose: 50 mg Levothyroxine Sodium (Synthroid Tab*) 50 mcg PO QAM@0600 [facility] Last Admin: 05/22/19 07:52 Dose: Not Given [place] Carbonate ([place] Carbonate Tab*) 600 mg PO BID [facility] Last Admin: 05/22/19 07:51 Dose: 300 mg Magnesium Oxide (Magox 400 Tab*) 400 mg PO DAILY [facility] Last Admin: 05/22/19 11:11 Dose: 400 mg Quetiapine Fumarate (Seroquel Tab*) 300 mg PO BEDTIME [facility] Last Admin: 05/21/19 22:48 Dose: Not Given - Discharge Plan Discharge Plan: Consider Longer Term Tx
[2019-05-22] MEDS: QUEtiapine TAB* 300 MG PO SCH (21:40)
[2019-05-23] MEDS: Levothyroxine TAB* 25 MCG TAB PO SCH (07:46)
[2019-05-23] MEDS: FLUoxetine CAP* 20 MG PO SCH (08:23)
[2019-05-23] MEDS: Lithium Carbonate TAB* 300 MG PO SCH ×2 (08:23→23:34)
[2019-05-23] MEDS: Magnesium Oxide TAB* 400 MG PO SCH (08:23)
[2019-05-23] MEDS: Cetirizine* 10 MG TAB PO SCH (08:24)
[2019-05-23] MEDS: Fluticasone NASAL SPRAY 50MCG* 16 gm SPRAY BTL BOTH NARES SCH (08:35)
--- NOTE | 2019-05-23 12:44 | PN ---
Subjective - Subjective Date of Service: 05/23/19 Service Type: 34635 Hosp care 15 min low complexity Subjective: Today I observed an interaction between Ishaan and his mother, Maddy, when she visited for the lunch hour. As she approached, Ishaan was in the Day area emptying his lunch tray into the garbage. "Go away, I don't want to talk to you." He reiterated his instance that she leave several times but did not retreat any further or leave the area. She told him she was here to support his discharge plan but he responds "I'm only leaving here on my own terms. You locked me up here. What is this? What are you doing here?" The interact in a similar fashion for about 7-8 minutes with Ishaan appearing angry but well related and evidencing no psychosis. After the interaction, Maddy states "He' s back. This is the real him. He's just mad." She strongly opposes State Hospitalization and feels like he will return more quickly to his baseline if he is allowed to return home to his apartment with f/u at [facility] Claudia Alvarezs. Ishaan does deny SI or HI. He is more interactive today with staff and peers. Objective - General Observations Appearance: Well Groomed Appears Stated Age: Yes Stature: Thin Behavior/Activity: WNL - Interaction Observations Attitude Towards Examiner: Hostile Stated Mood: Euthymic Affect: Full Speech Pattern/Tone: Clear, Appropriate Thought Process: Coherent Perception: WNL Thought Content: WNL Hallucination Type: None Delusion Type: None - Cognitive Function Orientation: A&O x 4 Level of Consciousness: Awake Cognition: WNL Estimated Intelligence: Normal Insight: WNL Judgment Within Normal Limits: Yes - Medication Compliance Cooperative with Inpatient Medication Regimen: Partial - Group Participation Participates in Group Activities: No Assessment - Assessment Merits Inpatient Hospitalization: Consolidate Improvements, Pending Safe DC Plan Inpatient DSM-V Dx: F31.64 Clinical Impression: 28 y.o. single, white male with a history of autism spectrum and bipolar disorders arrives via police and the mobile crisis team after his parents called for help when he was displaying disorganized, paranoid behavior and not attending to ADLs. BSU: Problem List - Patient Problems (1) Bipolar affective, mixed, sev w/ psych Current Visit: No Status: Acute Priority: High Code(s): F31.64 - BIPOLAR DISORD, CRNT EPISODE MIXED, SEVERE, W PSYCH FEATURES SNOMED Code(s): 106405969 Plan - Plan Treatment Plan: Name: ISHAAN PARKINSON Birthdate: 1990 [id number] Ishaan's behavior currently seems mostly consistent with his Autism Spectrum pathology rather than psychosis or ricky. He is mostly non-adherent with indicated medications, including quetiapine 300mg PO qhs, fluoxetine 20mg PO qday and lithium 600mg. I spoke with representatives of the [facility] in [place], [place] and the [facility] in [place], [place], however, neither of them work with 28 year-olds. We should consider discharge to the community if appropriate follow ups can be made. Continued Medication Management: Continue Outpt Medication Medications: Current Medications Acetaminophen (Tylenol Tab*) 650 mg PO Q4H PRN PRN Reason: for pain; or Temp >101 F Last Admin: 05/16/19 21:05 Dose: 650 mg Al Hydrox/Mg Hydrox/Simethicone (Maalox Plus*) 30 ml PO Q4H PRN PRN Reason: INDIGESTION Cetirizine HCl (Zyrtec*) 10 mg PO DAILY [facility] Last Admin: 05/23/19 08:24 Dose: Not Given Chlorpromazine HCl (Thorazine Tab*) 100 mg PO Q6H PRN PRN Reason: AGITATION Fluoxetine HCl (Prozac Cap*) 20 mg PO DAILY [facility] Last Admin: 05/23/19 08:23 Dose: 20 mg Fluticasone Propionate (Flonase Nasal [place] 50mcg*) 2 spray BOTH NARES DAILY [facility] Last Admin: 05/23/19 08:35 Dose: Not Given Hydroxyzine HCl (Atarax Tab*) 50 mg PO Q6H PRN PRN Reason: anxiety Last Admin: 05/21/19 12:26 Dose: 50 mg Levothyroxine Sodium (Synthroid Tab*) 50 mcg PO QAM@0600 [facility] Last Admin: 05/23/19 07:46 Dose: Not Given [place] Carbonate ([place] Carbonate Tab*) 600 mg PO BID [facility] Last Admin: 05/23/19 08:23 Dose: 300 mg Magnesium Oxide (Magox 400 Tab*) 400 mg PO DAILY [facility] Last Admin: 05/23/19 08:23 Dose: 400 mg Quetiapine Fumarate (Seroquel Tab*) 300 mg PO BEDTIME [facility] Last Admin: 05/22/19 21:40 Dose: Not Given - Discharge Plan Discharge Plan: Outpatient Follow Up Outpatient Program: Private Clinician(s)
[2019-05-23] MEDS: QUEtiapine TAB* 300 MG PO SCH (23:34)
[2019-05-24] MEDS: Magnesium Oxide TAB* 400 MG PO SCH (08:32)
[2019-05-24] MEDS: FLUoxetine CAP* 20 MG PO SCH (08:32)
[2019-05-24] MEDS: Lithium Carbonate TAB* 300 MG PO SCH ×2 (08:32→21:44)
[2019-05-24] MEDS: Levothyroxine TAB* 25 MCG TAB PO SCH (08:34)
[2019-05-24] MEDS: Fluticasone NASAL SPRAY 50MCG* 16 gm SPRAY BTL BOTH NARES SCH (08:34)
[2019-05-24] MEDS: Cetirizine* 10 MG TAB PO SCH (08:34)
--- NOTE | 2019-05-24 12:49 | PN ---
Subjective - Subjective Date of Service: 05/24/19 Service Type: 61853 Hosp care 15 min low complexity Subjective: Ishaan is eating, drinking, bathing and grooming. He is inconsistent with meds in an oppositional way. He does request discharge, saying that he will return to his apartment by cab and make his own appointments when he gets out. He is informed of the hospital's obligation to make these for him but responds "I'm not going to do anything that you tell me to." He is slightly more engaged today and denies SI or HI. I spoke with Ishaan's mother, Maddy, who is agreeable with the discharge plan. Objective - General Observations Appearance: Well Groomed Appears Stated Age: Yes Stature: Thin Posture: WNL Eye Contact: Average Behavior/Activity: WNL - Interaction Observations Attitude Towards Examiner: Uncooperative Stated Mood: Euthymic Affect: Full Speech Pattern/Tone: Clear Thought Process: Coherent Thought Content: WNL Hallucination Type: None Delusion Type: None - Cognitive Function Orientation: A&O x 4 Level of Consciousness: Awake Cognition: WNL Estimated Intelligence: Normal Insight: WNL Judgment Within Normal Limits: Yes - Medication Compliance Cooperative with Inpatient Medication Regimen: Partial - Group Participation Participates in Group Activities: Partial Assessment - Assessment Merits Inpatient Hospitalization: Consolidate Improvements, Pending Safe DC Plan Inpatient DSM-V Dx: F31.64 Clinical Impression: 28 y.o. single, white male with a history of autism spectrum and bipolar disorders arrives via police and the mobile crisis team after his parents called for help when he was displaying disorganized, paranoid behavior and not attending to ADLs. BSU: Problem List - Patient Problems (1) Bipolar affective, mixed, sev w/ psych Current Visit: No Status: Acute Priority: High Code(s): F31.64 - BIPOLAR DISORD, CRNT EPISODE MIXED, SEVERE, W PSYCH FEATURES SNOMED Code(s): 291378415 Plan - Plan Treatment Plan: Name: ISHAAN PARKINSON Birthdate: 1990 [id number] Ishaan's behavior currently seems mostly consistent with his Autism Spectrum pathology rather than psychosis or ricky. He is mostly non-adherent with indicated medications, including quetiapine 300mg PO qhs, fluoxetine 20mg PO qday and lithium 600mg. I spoke with both his outpatient therapist, Melissa Gibbs , and his outpatient NPP, Claudia Alvarez. They are agreeable with following up with him in the outpatient setting. He would benefit from case management services, but I am told by Utilization [employer] that he would not qualify for Medicaid due to recent income being too high. He currently has private insurance through [employer] and we are reaching out to them to see what they can provide him with. Discharge to community tomorrow (05/24). Continued Medication Management: Different Medication Medications: Current Medications Acetaminophen (Tylenol Tab*) 650 mg PO Q4H PRN PRN Reason: for pain; or Temp >101 F Last Admin: 05/16/19 21:05 Dose: 650 mg Al Hydrox/Mg Hydrox/Simethicone (Maalox Plus*) 30 ml PO Q4H PRN PRN Reason: INDIGESTION Cetirizine HCl (Zyrtec*) 10 mg PO DAILY [facility] Last Admin: 05/24/19 08:34 Dose: Not Given Chlorpromazine HCl (Thorazine Tab*) 100 mg PO Q6H PRN PRN Reason: AGITATION Fluoxetine HCl (Prozac Cap*) 20 mg PO DAILY [facility] Last Admin: 05/24/19 08:32 Dose: 20 mg Fluticasone Propionate (Flonase Nasal [place] 50mcg*) 2 spray BOTH NARES DAILY [facility] Last Admin: 05/24/19 08:34 Dose: Not Given Hydroxyzine HCl (Atarax Tab*) 50 mg PO Q6H PRN PRN Reason: anxiety Last Admin: 05/21/19 12:26 Dose: 50 mg Levothyroxine Sodium (Synthroid Tab*) 50 mcg PO QAM@0600 [facility] Last Admin: 05/24/19 08:34 Dose: Not Given [place] Carbonate ([place] Carbonate Tab*) 600 mg PO BID [facility] Last Admin: 05/24/19 08:32 Dose: 300 mg Magnesium Oxide (Magox 400 Tab*) 400 mg PO DAILY [facility] Last Admin: 05/24/19 08:32 Dose: 400 mg Quetiapine Fumarate (Seroquel Tab*) 300 mg PO BEDTIME [facility] Last Admin: 05/23/19 23:34 Dose: Not Given - Discharge Plan Discharge Plan: Outpatient Follow Up Outpatient Program: Private Clinician(s)
[2019-05-24] MEDS: QUEtiapine TAB* 300 MG PO SCH (21:44)
[2019-05-25] MEDS: Levothyroxine TAB* 25 MCG TAB PO SCH (08:13)
[2019-05-25] MEDS: FLUoxetine CAP* 20 MG PO SCH (09:20)
[2019-05-25] MEDS: Lithium Carbonate TAB* 300 MG PO SCH (09:20)
[2019-05-25] MEDS: Magnesium Oxide TAB* 400 MG PO SCH (09:20)
[2019-05-25] MEDS: Fluticasone NASAL SPRAY 50MCG* 16 gm SPRAY BTL BOTH NARES SCH (09:21)
[2019-05-25] MEDS: Cetirizine* 10 MG TAB PO SCH (09:21)
[2019-05-25 10:50] VITALS: BP 104/61
--- NOTE | 2019-05-25 13:42 | DS ---
DISCHARGE SUMMARY: DATE OF ADMISSION: 04/24/19 DATE OF DISCHARGE: 05/25/19 DISCHARGE DIAGNOSES: [place] I: Bipolar disorder type 1, current episode mixed manic, severe with psychotic features. Autism spectrum disorder. [place] II: Deferred. CONDITION AT THE TIME OF DISCHARGE: Improved. Ishaan has steadfastly denied suicidal or homicidal ideations throughout his hospitalization. He has been safe on all checks with no evidence of violence or agitation towards others. Furthermore, he is eating, drinking, bathing, and grooming. Although he has had mixed adherence with inpatient medications, the patient is agreeable with outpatient treatment in the community and followup appointments have been set with his private psychiatric nurse practitioner as well as his private practice psychotherapist. Ishaan's mother was able to visit him on the unit and indicated that he is back to his baseline. She was supportive of the discharge plan. MENTAL STATUS EXAM AT THE TIME OF DISCHARGE: Ishaan is a young white male, who is tall and slender with brownish hair and saucedo, who is clean, well groomed, calm, cooperative, making fairly good eye contact. Speech has a normal rate, tone, and volume. Mood appears to be euthymic with full affect. Thought process is linear and goal directed. Thought content is significant for his desire to be discharged from the hospital. He is denying suicidal or homicidal ideations. He denies auditory or visual hallucinations. There is no evidence of catatonia or paranoia. Insight and judgment appeared to be fair given his willingness to follow up in the outpatient setting. Cognitively, he is awake and alert with what would appear to be an average intellect. DISCHARGE INSTRUCTIONS: To the patient are as follows: Part A. Medications: 1. He takes Remicade 100 mg IV every 8 weeks. 2. He takes Seroquel 300 mg p.o. q.h.s. 3. Magnesium oxide 400 mg p.o. daily. 4. Claritin 10 mg p.o. daily. 5. [place] carbonate 600 mg p.o. b.i.d. 6. Synthroid 50 mcg p.o. daily. 7. Flonase 2 sprays to both nares daily. 8. Prozac 40 mg p.o. daily. Part B. Diet is regular. Part C. Activities as tolerated. The patient is a nonsmoker. There are no laboratory or diagnostic studies pending at the time of discharge. Part D. Followup care: The patient will be seen by his psychiatric nurse practitioner, Claudia Alvarez on 05/29/19 at 12 p.m. he also has a followup appointment with his outpatient psychotherapist, social services aide, Melissa Gibbs on 05/31/19 at 12 p.m. Part E. Substance abuse followup is nonapplicable. Part F. Disposition: The patient is returning home to his apartment via cab. LABS: Comprehensive metabolic testing was performed on 04/25/19, which revealed a hemoglobin A1c of 4.6, triglyceride 76, cholesterol 154, LDL cholesterol 61, HDL cholesterol 77.5. HOSPITAL COURSE: Part A. Reason for admission: The patient is a 28-year-old single white male with a history of autism spectrum disorder as well as bipolar disorder, who was brought in by the mobile crisis team after his parents called them with the concern that he has been increasingly agitated, disorganized, and paranoid. Because of his presentation, the mobile crisis team had called police authorities. They found a knife on Ishaan and disarmed him and brought him to the emergency room where he presented as a catatonic at times, other times he appeared distractible, disorganized, clearly paranoid and fearful. His parents report that he had been doing quite well since his most recent discharge in May 2018. At that time, he was able to wean off olanzapine secondary to significant sedation and was receiving lithium and fluoxetine as prescribed by psychiatric nurse practitioner, Claudia Alvarez in the community. He was also seeing private psychotherapist, Melissa Gibbs. 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 They first became suspicious 1 week prior to discharge when he stated that he was feeling slightly paranoid. They encouraged him to continue with his medications and follow up with Claudia Alvarez, which he did 1 week before admission. His provider noted that he was paranoid and attempted to start him on low-dose Risperdal as well as increased his lithium; however, the patient declined to adhere to either of these recommendations. At the time of admission, he was neither eating or drinking, would only sit in bed, responding minimally. He did make it clear that he did not want to be hospitalized, but given his past history of violent outburst during psychotic ricky, we felt that inpatient level of care was necessary. Part B. Psychiatric treatment rendered: The patient was admitted to the adult behavioral health unit and placed on q.15 minute checks for his own safety. He was extremely withdrawn, not eating and not drinking, and for his own safety, we administered intramuscular injections of both olanzapine and lorazepam, which resulted in improved functioning to the point that he was able to leave his room and start taking meals in the day area. He became adherent with medications and his fluoxetine was increased from 20 to 40, lithium was increased from 300 b.i.d. to 600 b.i.d., and he was restarted on olanzapine 10 mg twice daily. Unfortunately, Ishaan started complaining of sedation and was switched from olanzapine to risperidone, which caused hypersalivation. Later this was switched to quetiapine 300 mg nightly particularly since he was not sleeping well at night. Unfortunately, Ishaan became nonadherent with medications and started refusing care. He became very angry and hostile towards the treatment team. There were 2 occasions in which he was asked to leave the day area when a psychotic peer was acting out and Ishaan refused, requiring security intervention, and manual escorted back to his room. Ishaan remained nonadherent with medications for a little over a week and at that time we pursued treatment over objection, which the hospital was able to get a court order for. Fortunately, he resumed taking medication even prior to this order being obtained and so was never exercised. Ishaan refused often to engage with treatment providers including this clinician. He seemed angry both at his parents as well as the treatment team. We invited his mom to participate in a meeting with the patient, which he tolerated, although he would not allow her to get close and he repeatedly requested that she leave. Despite this, she was able to state that he was back at his baseline. Because of Ishaan's autism spectrum pathology, he has difficulty articulating his anger and tends to act out in oppositional ways that are historical in nature. Although at one point we were considering state hospitalization, at this time I do not feel that that is warranted given the fact that he is back at baseline and his autism symptoms are unlikely to improve with further inpatient care. Instead we have reached out to Claudia Alvarez and Melissa Gibbs and established outpatient treatment for the patient. He is returning to his own apartment and he has been given a letter for work indicating what his hospital dates are. I am wishing Ishaan the best of luck in terms of remaining safe and healthy in the community. We do feel that he is able to receive treatment safely in a less restrictive setting at this time. [id number]/CPS #: [id number] MTDD
== END 2019-05-25 11:00 | disposition home or self-care (01) | DRG 753 ==
LOC: ED 09:44 → BSU 11:16
PROVIDERS: ADMIT Psychiatry & Neurology Psychiatry; ATTEND Psychiatry & Neurology Psychiatry
PROC: GZHZZZZ Group Psychotherapy (ICD-10-PCS; principal; 2019-05-04)
DX: F31.64 Bipolar disorder, current episode mixed, severe, with psychotic features (principal); K50.90 Crohn's disease, unspecified, without complications; J30.1 Allergic rhinitis due to pollen; F84.0 Autistic disorder; R45.850 Homicidal ideations; Z91.013 Allergy to seafood; Z88.8 Allergy status to other drugs, medicaments and biological substances; Z78.1 Physical restraint status; Z91.14 Patient's other noncompliance with medication regimen; Z79.51 Long term (current) use of inhaled steroids; Z79.890 Hormone replacement therapy; Z79.899 Other long term (current) drug therapy
CPT/HCPCS: 36415; 80053; 80061; 80178; 80320; 80329; 82306; 82607; 82746; 83036; 83735; 84443; 84630; 85025; 90853; 99222; 99231; 99232; 99238; 99284; A9270-GY; G0480; J1200; J1630; J2060

== ENCOUNTER 2019-09-06 16:37 | Inpatient (IN) ==
[2019-09-06 18:58] LABS: ABS Basophils 0.1 10^3/ul (0-0.2); ABS Eosinophils 0.4 10^3/ul (0-0.6); ABS Monocytes 1.1 10^3/ul (0-0.8); Eosinophil % 4.8 %; Hematocrit 38 % (42-52); Hemoglobin 13.4 g/dL (14.0-18.0); Lymphocyte % 11.2 %; Mean Corpuscular HGB Conc 35 g/dL (31-36); Mean Corpuscular Hemoglobin 33 pg (27-31); Mean Corpuscular Volume 92 fL (80-94); Mean Platelet Volume 6.7 fL (7.4-10.4); Platelet Count 254 10^3/uL (150-450); Red Blood Count 4.12 10^6 /uL (4.18-5.48); Red Cell Distribution Width 12 % (10-15); White Blood Count 8.7 10^3/uL (3.5-10.8)
[2019-09-06 19:16] LABS: ALT 22 U/L (7-52); AST 25 U/L (13-39); Albumin 4.3 g/dL (3.2-5.2); Albumin/Globulin Ratio 1.7 (1-3); Alkaline Phosphatase 57 U/L (34-104); Anion Gap 4 mmol/L (2-11); BUN/Creatinine Ratio 19.1 (8-20); Blood Urea Nitrogen 18 mg/dL (6-24); CO2 Carbon Dioxide 29 mmol/L (22-32); Calcium 9.5 mg/dL (8.6-10.3); Chloride 106 mmol/L (101-111); EGFR African American 116.5 (>60); EGFR Non-African American 96.3 (>60); Globulin 2.5 g/dL (2-4); Glucose 90 mg/dL (70-100); Potassium 3.7 mmol/L (3.5-5.0); Sodium 139 mmol/L (135-145); Total Protein 6.8 g/dL (6.4-8.9)
[2019-09-06 19:34] LABS: Acetaminophen < 15 mcg/mL; Alcohol, S < 10 mg/dL (<10); Salicylate < 2.50 mg/dL (<30)
[2019-09-07] MEDS ORDERED: Al Hydrox/Mg Hydrox/Simet LIQ 30 ML UDC PO PRN (04:10)
[2019-09-07 06:57] LABS: Lithium 0.19 mmol/L (0.6-1.2)
[2019-09-07] MEDS: Vitamin THERAPEUTIC TAB PO SCH (10:40)
[2019-09-08] MEDS: Vitamin THERAPEUTIC TAB PO SCH (11:03)
[2019-09-09] MEDS: Vitamin THERAPEUTIC TAB PO SCH (09:23)
[2019-09-10] MEDS: Vitamin THERAPEUTIC TAB PO SCH (09:35)
[2019-09-10 11:53] LABS: Albumin 4.8 g/dL (3.2-5.2); Albumin/Globulin Ratio 1.5 (1-3); BUN/Creatinine Ratio 19.4 (8-20); Calcium 9.9 mg/dL (8.6-10.3); EGFR Non-African American 91.7 (>60); Globulin 3.2 g/dL (2-4); Potassium 4.1 mmol/L (3.5-5.0)
[2019-09-11] MEDS: Vitamin THERAPEUTIC TAB PO SCH (09:37)
[2019-09-12] MEDS: Vitamin THERAPEUTIC TAB PO SCH (07:50)
[2019-09-13] MEDS: Vitamin THERAPEUTIC TAB PO SCH ×2 (11:26→14:50)
[2019-09-14] MEDS: Vitamin THERAPEUTIC TAB PO SCH (09:09)
[2019-09-15] MEDS: Vitamin THERAPEUTIC TAB PO SCH (10:00)
[2019-09-16] MEDS: Vitamin THERAPEUTIC TAB PO SCH (09:23)
[2019-09-17] MEDS: Vitamin THERAPEUTIC TAB PO SCH (09:35)
[2019-09-18] MEDS: Vitamin THERAPEUTIC TAB PO SCH (07:50)
[2019-09-19] MEDS: Vitamin THERAPEUTIC TAB PO SCH (09:59)
[2019-09-20] MEDS: Vitamin THERAPEUTIC TAB PO SCH (08:49)
[2019-09-21] MEDS: Vitamin THERAPEUTIC TAB PO SCH (09:03)
[2019-09-22] MEDS: Vitamin THERAPEUTIC TAB PO SCH (12:18)
[2019-09-23] MEDS: Vitamin THERAPEUTIC TAB PO SCH (10:16)
[2019-09-24] MEDS: Vitamin THERAPEUTIC TAB PO SCH ×2 (15:41→20:11)
[2019-09-25] MEDS: Vitamin THERAPEUTIC TAB PO SCH (08:15)
[2019-09-25 10:13] VITALS: BP 112/72
== END 2019-09-25 12:00 | disposition home or self-care (01) | DRG 753 ==
LOC: ED 16:37 → BSU 09-07 00:53
PROVIDERS: ADMIT Psychiatry & Neurology Psychiatry; ATTEND Psychiatry & Neurology Psychiatry

== ENCOUNTER 2019-11-17 13:28 | Inpatient (IN) ==
[2019-11-17 14:20] LABS: ABS Lymphocytes 0.5 10^3/ul (1.0-4.8); ABS Monocytes 0.7 10^3/ul (0-0.8); ABS Neutrophils 7.4 10^3/ul (1.5-7.7); Eosinophil % 0.4 %; Hematocrit 41 % (42-52); Hemoglobin 14.3 g/dL (14.0-18.0); Lymphocyte % 6.1 %; Mean Corpuscular HGB Conc 35 g/dL (31-36); Mean Corpuscular Hemoglobin 32 pg (27-31); Mean Corpuscular Volume 91 fL (80-94); Mean Platelet Volume 6.8 fL (7.4-10.4); Platelet Count 324 10^3/uL (150-450); Red Blood Count 4.51 10^6 /uL (4.18-5.48); Red Cell Distribution Width 13 % (10-15); White Blood Count 8.8 10^3/uL (3.5-10.8)
[2019-11-17 14:41] LABS: Anion Gap 11 mmol/L (2-11); BUN/Creatinine Ratio 21.4 (8-20); Blood Urea Nitrogen 21 mg/dL (6-24); CO2 Carbon Dioxide 24 mmol/L (22-32); Chloride 103 mmol/L (101-111); EGFR Non-African American 91.7 (>60); Glucose 93 mg/dL (70-100); Potassium 3.7 mmol/L (3.5-5.0); Sodium 138 mmol/L (135-145)
[2019-11-17 14:42] LABS: ALT 20 U/L (7-52); AST 25 U/L (13-39); Albumin/Globulin Ratio 1.8 (1-3); Alkaline Phosphatase 68 U/L (34-104); Calcium 10.1 mg/dL (8.6-10.3); Globulin 2.8 g/dL (2-4); Total Protein 7.8 g/dL (6.4-8.9)
[2019-11-17 14:51] LABS: Acetaminophen < 15 mcg/mL; Alcohol, S < 10 mg/dL (<10); Salicylate < 2.50 mg/dL (<30)
[2019-11-17 14:58] LABS: TSH Ultra Thyroid Stim Horm 1.63 mcIU/mL (0.34-5.60)
[2019-11-17] MEDS ORDERED: Tetan/Diph/Pertus SYR(Tdap) 0.5 ML SYR(BOOSTRIX) use SYR contains LATEX IM ONE (15:01)
[2019-11-17 20:35] LABS: Lithium < 0.10 mmol/L (0.6-1.2)
[2019-11-17] MEDS ORDERED: Al Hydrox/Mg Hydrox/Simet LIQ 30 ML UDC PO PRN (20:55)
[2019-11-18] MEDS: Mupirocin 2% OINT TUBE TOPICAL SCH ×2 (11:04→21:19)
[2019-11-18] MEDS: Vitamin THERAPEUTIC TAB PO SCH (11:04)
[2019-11-18] MEDS: Fluticasone NASAL SPRAY 50MCG 16 gm SPRAY BTL BOTH NARES SCH (11:04)
[2019-11-19] MEDS: Vitamin THERAPEUTIC TAB PO SCH (12:11)
[2019-11-19] MEDS: Mupirocin 2% OINT TUBE TOPICAL SCH ×2 (12:11→21:27)
[2019-11-19] MEDS: Fluticasone NASAL SPRAY 50MCG 16 gm SPRAY BTL BOTH NARES SCH (12:12)
[2019-11-20] MEDS: Mupirocin 2% OINT TUBE TOPICAL SCH ×2 (08:39→21:39)
[2019-11-20] MEDS: Vitamin THERAPEUTIC TAB PO SCH (08:39)
[2019-11-20] MEDS: Fluticasone NASAL SPRAY 50MCG 16 gm SPRAY BTL BOTH NARES SCH (08:39)
[2019-11-21] MEDS: Fluticasone NASAL SPRAY 50MCG 16 gm SPRAY BTL BOTH NARES SCH (09:17)
[2019-11-21] MEDS: Vitamin THERAPEUTIC TAB PO SCH (09:17)
[2019-11-21] MEDS: Mupirocin 2% OINT TUBE TOPICAL SCH ×2 (09:17→21:23)
[2019-11-22] MEDS: Mupirocin 2% OINT TUBE TOPICAL SCH ×2 (10:36→23:35)
[2019-11-22] MEDS: Vitamin THERAPEUTIC TAB PO SCH (10:36)
[2019-11-22] MEDS: Fluticasone NASAL SPRAY 50MCG 16 gm SPRAY BTL BOTH NARES SCH (10:36)
[2019-11-23] MEDS: Vitamin THERAPEUTIC TAB PO SCH (09:06)
[2019-11-23] MEDS: Fluticasone NASAL SPRAY 50MCG 16 gm SPRAY BTL BOTH NARES SCH (09:20)
[2019-11-23] MEDS: Mupirocin 2% OINT TUBE TOPICAL SCH ×2 (09:24→23:40)
[2019-11-24] MEDS: Vitamin THERAPEUTIC TAB PO SCH (16:56)
[2019-11-24] MEDS: Fluticasone NASAL SPRAY 50MCG 16 gm SPRAY BTL BOTH NARES SCH (16:56)
[2019-11-24] MEDS: Mupirocin 2% OINT TUBE TOPICAL SCH (16:56)
[2019-11-25] MEDS: Mupirocin 2% OINT TUBE TOPICAL SCH ×2 (01:37→19:24)
[2019-11-26] MEDS: Mupirocin 2% OINT TUBE TOPICAL SCH ×3 (00:15→22:59)
[2019-11-26] MEDS: Fluticasone NASAL SPRAY 50MCG 16 gm SPRAY BTL BOTH NARES SCH ×2 (00:15→10:58)
[2019-11-26] MEDS: Vitamin THERAPEUTIC TAB PO SCH ×2 (00:15→10:59)
[2019-11-27] MEDS: Vitamin THERAPEUTIC TAB PO SCH (08:37)
[2019-11-27] MEDS: Fluticasone NASAL SPRAY 50MCG 16 gm SPRAY BTL BOTH NARES SCH (08:37)
[2019-11-27] MEDS: Mupirocin 2% OINT TUBE TOPICAL SCH ×2 (08:37→21:58)
[2019-11-28] MEDS: Fluticasone NASAL SPRAY 50MCG 16 gm SPRAY BTL BOTH NARES SCH (13:17)
[2019-11-28] MEDS: Vitamin THERAPEUTIC TAB PO SCH (13:18)
[2019-11-28] MEDS: Mupirocin 2% OINT TUBE TOPICAL SCH ×2 (13:18→22:12)
[2019-11-29] MEDS: Vitamin THERAPEUTIC TAB PO SCH (10:48)
[2019-11-29] MEDS: Fluticasone NASAL SPRAY 50MCG 16 gm SPRAY BTL BOTH NARES SCH (10:48)
[2019-11-29] MEDS: Mupirocin 2% OINT TUBE TOPICAL SCH ×2 (10:48→21:54)
[2019-11-30] MEDS: Fluticasone NASAL SPRAY 50MCG 16 gm SPRAY BTL BOTH NARES SCH (10:15)
[2019-11-30] MEDS: Mupirocin 2% OINT TUBE TOPICAL SCH ×2 (10:16→20:52)
[2019-11-30] MEDS: Vitamin THERAPEUTIC TAB PO SCH (10:16)
[2019-12-01] MEDS: Fluticasone NASAL SPRAY 50MCG 16 gm SPRAY BTL BOTH NARES SCH (09:21)
[2019-12-01] MEDS: Mupirocin 2% OINT TUBE TOPICAL SCH ×2 (09:22→22:39)
[2019-12-01] MEDS: Vitamin THERAPEUTIC TAB PO SCH (09:22)
[2019-12-02] MEDS: Fluticasone NASAL SPRAY 50MCG 16 gm SPRAY BTL BOTH NARES SCH (09:39)
[2019-12-02] MEDS: Mupirocin 2% OINT TUBE TOPICAL SCH ×2 (09:40→21:58)
[2019-12-02] MEDS: Vitamin THERAPEUTIC TAB PO SCH (09:40)
[2019-12-03] MEDS: Fluticasone NASAL SPRAY 50MCG 16 gm SPRAY BTL BOTH NARES SCH (10:34)
[2019-12-03] MEDS: Vitamin THERAPEUTIC TAB PO SCH (10:34)
[2019-12-03] MEDS: Mupirocin 2% OINT TUBE TOPICAL SCH ×2 (10:34→22:04)
[2019-12-04] MEDS: Fluticasone NASAL SPRAY 50MCG 16 gm SPRAY BTL BOTH NARES SCH (11:17)
[2019-12-04] MEDS: Vitamin THERAPEUTIC TAB PO SCH (11:17)
[2019-12-04] MEDS: Mupirocin 2% OINT TUBE TOPICAL SCH ×2 (11:17→21:42)
[2019-12-05] MEDS: Vitamin THERAPEUTIC TAB PO SCH (08:43)
[2019-12-05] MEDS: Fluticasone NASAL SPRAY 50MCG 16 gm SPRAY BTL BOTH NARES SCH (08:45)
[2019-12-05] MEDS: Mupirocin 2% OINT TUBE TOPICAL SCH ×2 (09:17→21:30)
[2019-12-06] MEDS: Vitamin THERAPEUTIC TAB PO SCH (08:26)
[2019-12-06] MEDS: Mupirocin 2% OINT TUBE TOPICAL SCH ×2 (09:50→20:05)
[2019-12-06] MEDS: Fluticasone NASAL SPRAY 50MCG 16 gm SPRAY BTL BOTH NARES SCH (09:50)
[2019-12-07] MEDS: Vitamin THERAPEUTIC TAB PO SCH (08:32)
[2019-12-07] MEDS: Mupirocin 2% OINT TUBE TOPICAL SCH ×2 (08:36→20:31)
[2019-12-07] MEDS: Fluticasone NASAL SPRAY 50MCG 16 gm SPRAY BTL BOTH NARES SCH (08:36)
[2019-12-08] MEDS: Vitamin THERAPEUTIC TAB PO SCH (08:07)
[2019-12-08] MEDS: Mupirocin 2% OINT TUBE TOPICAL SCH ×2 (09:06→19:31)
[2019-12-08] MEDS: Fluticasone NASAL SPRAY 50MCG 16 gm SPRAY BTL BOTH NARES SCH (09:06)
[2019-12-09] MEDS: Lurasidone 120 mg TAB PO SCH (08:28)
[2019-12-09] MEDS: Vitamin THERAPEUTIC TAB PO SCH (08:28)
[2019-12-09] MEDS: Mupirocin 2% OINT TUBE TOPICAL SCH ×2 (08:30→21:49)
[2019-12-09] MEDS: Fluticasone NASAL SPRAY 50MCG 16 gm SPRAY BTL BOTH NARES SCH (08:30)
[2019-12-10] MEDS: Vitamin THERAPEUTIC TAB PO SCH (07:34)
[2019-12-10] MEDS: Mupirocin 2% OINT TUBE TOPICAL SCH ×2 (07:35→20:01)
[2019-12-10] MEDS: Fluticasone NASAL SPRAY 50MCG 16 gm SPRAY BTL BOTH NARES SCH (07:35)
[2019-12-10 08:33] LABS: HDL Cholesterol 62.6 mg/dL
[2019-12-10] MEDS: Lurasidone 120 mg TAB PO SCH (08:33)
[2019-12-10 08:39] LABS: Lithium 0.71 mmol/L (0.6-1.2)
[2019-12-10 18:57] LABS: HIV 4th Generation Nonreactive (Nonreactive)
[2019-12-10 19:03] LABS: Hepatitis C Antibody Negative (Negative)
[2019-12-11] MEDS: Vitamin THERAPEUTIC TAB PO SCH (08:10)
[2019-12-11] MEDS: Lurasidone 120 mg TAB PO SCH (08:10)
[2019-12-11] MEDS: Fluticasone NASAL SPRAY 50MCG 16 gm SPRAY BTL BOTH NARES SCH (08:58)
[2019-12-11] MEDS: Mupirocin 2% OINT TUBE TOPICAL SCH ×2 (08:58→21:17)
[2019-12-12] MEDS: Fluticasone NASAL SPRAY 50MCG 16 gm SPRAY BTL BOTH NARES SCH (08:02)
[2019-12-12] MEDS: Mupirocin 2% OINT TUBE TOPICAL SCH ×2 (08:02→20:31)
[2019-12-12] MEDS: Lurasidone 120 mg TAB PO SCH (08:03)
[2019-12-12] MEDS: Vitamin THERAPEUTIC TAB PO SCH (08:03)
[2019-12-13] MEDS: Vitamin THERAPEUTIC TAB PO SCH (08:16)
[2019-12-13] MEDS: Mupirocin 2% OINT TUBE TOPICAL SCH ×2 (08:17→20:57)
[2019-12-13] MEDS: Fluticasone NASAL SPRAY 50MCG 16 gm SPRAY BTL BOTH NARES SCH (08:17)
[2019-12-14] MEDS: Vitamin THERAPEUTIC TAB PO SCH (08:32)
[2019-12-14] MEDS: Fluticasone NASAL SPRAY 50MCG 16 gm SPRAY BTL BOTH NARES SCH (08:34)
[2019-12-14] MEDS: Mupirocin 2% OINT TUBE TOPICAL SCH (08:34)
[2019-12-14 10:37] VITALS: BP 99/57
== END 2019-12-14 14:00 | disposition home or self-care (01) | DRG 753 ==
LOC: ED 13:28 → BSU 19:25
PROVIDERS: ADMIT Psychiatry & Neurology Psychiatry; ATTEND Psychiatry & Neurology Psychiatry

== ENCOUNTER 2020-08-22 12:31 | Inpatient (IN) ==
[2020-08-22] MEDS ORDERED: Lidocaine/Epineph/Tetraca GEL 3 ML GEL IN SYR TOPICAL ONE (17:20)
[2020-08-22 18:04] LABS: ABS Basophils 0.1 10^3/ul (0-0.2); ABS Eosinophils 0.4 10^3/ul (0-0.6); ABS Lymphocytes 1.3 10^3/ul (1.0-4.8); ABS Monocytes 1.2 10^3/ul (0-0.8); ABS Neutrophils 7.2 10^3/ul (1.5-7.7); Eosinophil % 4.2 %; Hematocrit 40 % (42-52); Hemoglobin 13.9 g/dL (14.0-18.0); Lymphocyte % 13.1 %; Mean Corpuscular HGB Conc 35 g/dL (31-36); Mean Corpuscular Hemoglobin 33 pg (27-31); Mean Corpuscular Volume 93 fL (80-94); Mean Platelet Volume 6.5 fL (7.4-10.4); Platelet Count 297 10^3/uL (150-450); Red Blood Count 4.24 10^6 /uL (4.18-5.48); Red Cell Distribution Width 12 % (10-15); White Blood Count 10.2 10^3/uL (3.5-10.8)
[2020-08-22 18:20] LABS: Calcium 9.8 mg/dL (8.6-10.3); EGFR African American 100.7 (>60); EGFR Non-African American 83.2 (>60); Potassium 3.8 mmol/L (3.5-5.0)
[2020-08-22] MEDS: ceFAZolin 2 GM PREMIX 2 GM/50 ML BAG IVPB SCH (20:41)
[2020-08-22] MEDS ORDERED: NS 0.9% 1000 ml BAG 1,000 ML IV SCH (21:00)
[2020-08-22 21:16] LABS: C Reactive Protein 15.78 mg/L (<8.01)
[2020-08-22] MEDS ORDERED: Dextrose 50% Syringe 50 ml 25 GM/50 ML SYRINGE IV PUSH PRN (21:41)
[2020-08-22] MEDS ORDERED: INFLIXIMAB 100 MG IV SCH (21:45)
[2020-08-22 22:20] LABS: Lithium 0.71 mmol/L (0.6-1.2)
[2020-08-23] MEDS: CMCS: Lithium Carb ER 300 mg TAB(NF) PO SCH ×2 (00:10→20:30)
[2020-08-23] MEDS: ceFAZolin 2 GM PREMIX 2 GM/50 ML BAG IVPB SCH ×3 (04:09→20:27)
[2020-08-23 08:36] LABS: Hematocrit 39 % (42-52); Hemoglobin 13.5 g/dL (14.0-18.0); Mean Corpuscular HGB Conc 35 g/dL (31-36); Mean Corpuscular Hemoglobin 33 pg (27-31); Mean Corpuscular Volume 94 fL (80-94); Mean Platelet Volume 6.8 fL (7.4-10.4); Platelet Count 252 10^3/uL (150-450); Red Blood Count 4.15 10^6 /uL (4.18-5.48); Red Cell Distribution Width 12 % (10-15); White Blood Count 10.2 10^3/uL (3.5-10.8)
[2020-08-24] MEDS: ceFAZolin 2 GM PREMIX 2 GM/50 ML BAG IVPB SCH ×2 (05:01→12:46)
[2020-08-24 13:43] VITALS: BP 100/50
== END 2020-08-24 15:00 | disposition home or self-care (01) | DRG 383 ==
LOC: ED 12:31 → MEDTELE 21:00
PROVIDERS: ADMIT Hospitalist; ATTEND Internal Medicine

== ENCOUNTER 2020-09-12 10:28 | Inpatient (IN) ==
[2020-09-12] MEDS ORDERED: NS 0.9% 1000 ml BAG 1,000 ML IV ONE ×2 (12:22→16:01)
[2020-09-12] MEDS ORDERED: ceFAZolin 2 GM PREMIX 2 GM/50 ML BAG IVPB ONE (12:22)
[2020-09-12] MEDS ORDERED: Lactated Ringers 1000 ml BAG 1,000 ML IV ONE (12:44)
[2020-09-12 13:11] LABS: ABS Eosinophils 0.1 10^3/ul (0-0.6); ABS Lymphocytes 0.8 10^3/ul (1.0-4.8); ABS Monocytes 1.1 10^3/ul (0-0.8); ABS Neutrophils 7.8 10^3/ul (1.5-7.7); Eosinophil % 1.3 %; Hematocrit 39 % (42-52); Mean Corpuscular HGB Conc 34 g/dL (31-36); Mean Corpuscular Hemoglobin 32 pg (27-31); Mean Corpuscular Volume 94 fL (80-94); Mean Platelet Volume 6.9 fL (7.4-10.4); Platelet Count 273 10^3/uL (150-450); Red Blood Count 4.14 10^6 /uL (4.18-5.48); Red Cell Distribution Width 13 % (10-15); White Blood Count 9.9 10^3/uL (3.5-10.8)
[2020-09-12 13:50] LABS: Albumin 4.5 g/dL (3.2-5.2); Albumin/Globulin Ratio 1.6 (1-3); Calcium 9.9 mg/dL (8.6-10.3); EGFR African American 124.8 (>60); EGFR Non-African American 103.1 (>60); Globulin 2.8 g/dL (2-4); Potassium 4.2 mmol/L (3.5-5.0); Total Bilirubin 0.9 mg/dL (0.2-1.0); Total Protein 7.3 g/dL (6.4-8.9)
[2020-09-12] MEDS ORDERED: Cefepime 2 GM in Dextrose 2 GM/50 ML BAG IV SCH (14:00)
[2020-09-12] MEDS ORDERED: Ondansetron 4 mg VIAL 2 MG/ML 2 ml VIAL IV PRN (15:17)
[2020-09-12 16:38] LABS: Lithium 0.7 mmol/L (0.6-1.2)
[2020-09-12] MEDS: CMC:Lithium Carb ER 300 mg TAB(NF) PO SCH (20:14)
[2020-09-12] MEDS ORDERED: ceFAZolin 2 GM PREMIX 2 G/50 ML BAG IVPB SCH (21:00)
[2020-09-13] MEDS ORDERED: Lactated Ringers 1000 ml BAG 1,000 ML IV ONE (03:29)
[2020-09-13] MEDS ORDERED: Vancomycin 2,000 MG in NS 0.9% 500 ml BAG 500 ML IVPB ONE (04:00)
[2020-09-13] MEDS: Cefepime 2 GM in Dextrose 2 GM/50 ML BAG IV SCH ×2 (04:32→15:55)
[2020-09-13 05:34] LABS: Hematocrit 33 % (42-52); Hemoglobin 11.5 g/dL (14.0-18.0); Mean Corpuscular HGB Conc 35 g/dL (31-36); Mean Corpuscular Hemoglobin 33 pg (27-31); Mean Corpuscular Volume 93 fL (80-94); Mean Platelet Volume 7.4 fL (7.4-10.4); Platelet Count 237 10^3/uL (150-450); Red Blood Count 3.52 10^6 /uL (4.18-5.48); Red Cell Distribution Width 13 % (10-15); White Blood Count 10.6 10^3/uL (3.5-10.8)
[2020-09-13 05:37] LABS: ABS Eosinophils 0.1 10^3/ul (0-0.6); ABS Lymphocytes 1.2 10^3/ul (1.0-4.8); ABS Monocytes 1.7 10^3/ul (0-0.8); ABS Neutrophils 7.6 10^3/ul (1.5-7.7); Eosinophil % 0.9 %; Lymphocyte % 11.1 %
[2020-09-13 05:49] LABS: Calcium 8.9 mg/dL (8.6-10.3); EGFR African American 128.1 (>60); EGFR Non-African American 105.9 (>60); Potassium 3.9 mmol/L (3.5-5.0)
[2020-09-13] MEDS: Cholecalciferol (VIT D3) 1,000 unit TAB PO SCH (08:13)
[2020-09-13] MEDS ORDERED: Vancomycin per Pharmacy 1 EA NOTE FOLLOW UP PRN (12:35)
[2020-09-13] MEDS: Vancomycin 1,500 MG in NS 0.9% 250 ml 250 ML IVPB SCH (17:37)
[2020-09-13] MEDS: CMC:Lithium Carb ER 300 mg TAB(NF) PO SCH (20:41)
[2020-09-14] MEDS: Cefepime 2 GM in Dextrose 2 GM/50 ML BAG IV SCH ×2 (03:38→16:24)
[2020-09-14] MEDS: Vancomycin 1,500 MG in NS 0.9% 250 ml 250 ML IVPB SCH ×2 (05:02→17:02)
[2020-09-14] MEDS: Cholecalciferol (VIT D3) 1,000 unit TAB PO SCH (08:06)
[2020-09-14 08:28] LABS: Hematocrit 38 % (42-52); Mean Corpuscular HGB Conc 35 g/dL (31-36); Mean Corpuscular Hemoglobin 33 pg (27-31); Mean Corpuscular Volume 94 fL (80-94); Platelet Count 210 10^3/uL (150-450); Red Blood Count 3.99 10^6 /uL (4.18-5.48); Red Cell Distribution Width 13 % (10-15); White Blood Count 7.3 10^3/uL (3.5-10.8)
[2020-09-14 08:46] LABS: Calcium 9.1 mg/dL (8.6-10.3); EGFR African American 145.6 (>60); EGFR Non-African American 120.3 (>60); Magnesium 1.8 mg/dL (1.9-2.7); Potassium 4.3 mmol/L (3.5-5.0)
[2020-09-14] MEDS ORDERED: Magnesium Sulfate IV 1GM/100ML 1 GM/100 ML BAG IV ONE (09:41)
[2020-09-14] MEDS: MAGNESIUM GLYCINATE 400 MG PO SCH (12:53)
[2020-09-14] MEDS: CMC:Lithium Carb ER 300 mg TAB(NF) PO SCH (20:02)
[2020-09-15] MEDS: Cefepime 2 GM in Dextrose 2 GM/50 ML BAG IV SCH ×2 (04:09→15:59)
[2020-09-15] MEDS ORDERED: Vancomycin Trough Check NOTE FOLLOW UP ONE (05:30)
[2020-09-15 06:18] LABS: Hematocrit 36 % (42-52); Hemoglobin 12.5 g/dL (14.0-18.0); Mean Corpuscular HGB Conc 35 g/dL (31-36); Mean Corpuscular Hemoglobin 32 pg (27-31); Mean Corpuscular Volume 93 fL (80-94); Mean Platelet Volume 7.1 fL (7.4-10.4); Platelet Count 207 10^3/uL (150-450); Red Blood Count 3.88 10^6 /uL (4.18-5.48); Red Cell Distribution Width 12 % (10-15); White Blood Count 5.5 10^3/uL (3.5-10.8)
[2020-09-15 06:35] LABS: Calcium 9.5 mg/dL (8.6-10.3); EGFR African American 147.8 (>60); EGFR Non-African American 122.1 (>60); Magnesium 1.7 mg/dL (1.9-2.7); Potassium 4.1 mmol/L (3.5-5.0)
[2020-09-15 06:43] LABS: Lithium 0.89 mmol/L (0.6-1.2)
[2020-09-15] MEDS: Vancomycin 1,500 MG in NS 0.9% 250 ml 250 ML IVPB SCH ×2 (06:51→16:56)
[2020-09-15] MEDS ORDERED: Magnesium Sulfate 2 gm BAG 2 GM/50 ML BAG IVPB ONE (07:07)
[2020-09-15] MEDS: Cholecalciferol (VIT D3) 1,000 unit TAB PO SCH (09:11)
[2020-09-15] MEDS: MAGNESIUM GLYCINATE 400 MG PO SCH (09:12)
[2020-09-15] MEDS: CMC:Lithium Carb ER 300 mg TAB(NF) PO SCH (20:18)
[2020-09-16] MEDS: Cefepime 2 GM in Dextrose 2 GM/50 ML BAG IV SCH (03:38)
[2020-09-16] MEDS: Vancomycin 1,500 MG in NS 0.9% 250 ml 250 ML IVPB SCH (05:04)
[2020-09-16 06:50] LABS: Hematocrit 36 % (42-52); Hemoglobin 12.5 g/dL (14.0-18.0); Mean Corpuscular HGB Conc 35 g/dL (31-36); Mean Corpuscular Hemoglobin 32 pg (27-31); Mean Corpuscular Volume 93 fL (80-94); Mean Platelet Volume 6.8 fL (7.4-10.4); Platelet Count 220 10^3/uL (150-450); Red Cell Distribution Width 12 % (10-15); White Blood Count 4.8 10^3/uL (3.5-10.8)
[2020-09-16 07:04] LABS: Calcium 9.5 mg/dL (8.6-10.3); EGFR African American 159.8 (>60); EGFR Non-African American 132.1 (>60); Magnesium 1.7 mg/dL (1.9-2.7); Potassium 4.1 mmol/L (3.5-5.0)
[2020-09-16] MEDS: Cholecalciferol (VIT D3) 1,000 unit TAB PO SCH (09:40)
[2020-09-16 12:07] VITALS: BP 97/47
[2020-09-18] MEDS ORDERED: Vancomycin Trough Check NOTE FOLLOW UP ONE (05:30)
== END 2020-09-16 13:15 | disposition home or self-care (01) | DRG 383 ==
LOC: ED 10:28 → MED 10:28 → OBSVTOIN 15:17 → INTOOBSV 15:17 → MED 09-14 02:01
PROVIDERS: ADMIT Internal Medicine; ATTEND Internal Medicine

== ENCOUNTER 2022-09-30 13:38 | Inpatient (IN) ==
[2022-09-30 14:47] LABS: ABS Basophils 0.1 10^3/uL (0.0-0.1); ABS Eosinophils 0.3 10^3/uL (0.0-0.5); ABS Lymphocytes 1.4 10^3/uL (1.0-4.8); ABS Monocytes 0.7 10^3/uL (0.0-1.1); ABS Neutrophils 4.2 10^3/uL (1.5-7.6); Eosinophil % 5.1 %; Hematocrit 40.2 % (38-53); Hemoglobin 13.8 g/dL (13.2-16.3); Lymphocyte % 20.3 %; Mean Corpuscular Hemoglobin 32.6 pg (27-33); Mean Corpuscular Hgb Conc 34.3 g/dL (31-36); Mean Corpuscular Volume 95.2 fL (80-97); Mean Platelet Volume 6.2 fL (7.5-11.2); Platelet Count 329 10^3/uL (150-450); Red Blood Count 4.22 10^6/uL (4.06-5.63); Red Cell Distribution Width 13.4 % (12-17); White Blood Count 6.7 10^3/uL (3.6-10.2)
[2022-09-30 14:54] LABS: Urine Appearance Clear; Urine Bilirubin Negative (Negative); Urine Blood Negative (Negative); Urine Color Yellow; Urine Glucose Negative (Negative); Urine Ketones Negative (Negative); Urine Nitrite Negative (Negative); Urine Protein Negative (Negative); Urine Specific Gravity 1.012 (1.002-1.030); Urine Urobilinogen Negative (Negative)
[2022-09-30 15:03] LABS: ALT 17 U/L (7-52); AST 19 U/L (13-39); Albumin 4.9 g/dL (3.2-5.2); Albumin/Globulin Ratio 2.1 (1-3); Alkaline Phosphatase 45 U/L (35-149); Anion Gap 3 mmol/L (2-16); Blood Urea Nitrogen 16 mg/dL (6-24); CO2 Carbon Dioxide 30 mmol/L (22-32); Calcium 10.1 mg/dL (8.6-10.3); Chloride 106 mmol/L (101-111); Creatinine, Serum 0.96 mg/dL (0.67-1.17); Globulin 2.3 g/dL (2-4); Glucose 114 mg/dL (70-100); Sodium 139 mmol/L (135-145); Total Protein 7.2 g/dL (6.4-8.9)
[2022-09-30 15:13] LABS: Urine Benzodiazepine Screen None Detected (None Detect); Urine Cannabinoids Screen None Detected (None Detect); Urine Opiates Screen None Detected (None Detect)
[2022-09-30 15:19] LABS: Alcohol, S < 13 mg/dL (<13); Salicylate < 2.50 mg/dL (<30)
[2022-09-30 15:31] LABS: Acetaminophen < 15 mcg/mL
[2022-09-30 15:34] LABS: TSH Ultra Thyroid Stim Horm 0.31 mcIU/mL (0.34-5.60)
[2022-09-30] MEDS ORDERED: Al Hydrox/Mg Hydrox/Simet LIQ 30 ML UDC PO PRN (17:31)
[2022-10-01 08:17] LABS: HDL Cholesterol 55.9 mg/dL
[2022-10-01] MEDS ORDERED: NON FORMULARY MED (Zinc 50 mg Tablet) PO SCH (09:00)
[2022-10-01] MEDS: Lithium Carbonate ER 450mg TAB PO SCH (20:25)
[2022-10-02] MEDS: PTO:Metformin ER 500 mg TAB (NF) PO SCH (17:38)
[2022-10-02] MEDS: MAGNESIUM GLYCINATE PO SCH (17:39)
[2022-10-02] MEDS: Lithium Carbonate ER 450mg TAB PO SCH (20:14)
[2022-10-03] MEDS: PTO:Metformin ER 500 mg TAB (NF) PO SCH (16:45)
[2022-10-03] MEDS: MAGNESIUM GLYCINATE PO SCH (16:46)
[2022-10-03] MEDS: Lithium Carbonate ER 450mg TAB PO SCH (20:23)
[2022-10-03 20:38] LABS: Magnesium 1.9 mg/dL (1.9-2.7)
[2022-10-03 20:55] LABS: Lithium 0.34 mmol/L (0.6-1.2)
[2022-10-04] MEDS: MAGNESIUM GLYCINATE PO SCH (17:05)
[2022-10-04] MEDS: PTO:Metformin ER 500 mg TAB (NF) PO SCH (17:05)
[2022-10-04] MEDS: Lithium Carbonate ER 450mg TAB PO SCH (20:54)
[2022-10-05] MEDS: PTO:Metformin ER 500 mg TAB (NF) PO SCH (16:50)
[2022-10-05] MEDS: MAGNESIUM GLYCINATE PO SCH (16:51)
[2022-10-05] MEDS: Lithium Carbonate ER 450mg TAB PO SCH (20:20)
[2022-10-06 09:03] VITALS: BP 91/57
== END 2022-10-06 14:52 | disposition home or self-care (01) | DRG 753 ==
LOC: ED 13:38 → EDHOLD 17:31 → BSU 18:51
PROVIDERS: ADMIT Psychiatry & Neurology Psychiatry; ATTEND Student in an Organized Health Care Education/Training Program